=== PATIENT | female | born 1975 | race Caucasian/White ===

== ENCOUNTER 2017-02-04 13:12 | Inpatient (IN) | payer OTHER ==
[~2017-02-04] VITALS: Ht 154.9 cm; Wt 48.0 kg
[~2017-02-04 13:12] MED LIST: ALBU1AER9 INH; AMPH30TA2 PO; ATV/1 PO; BUPRTAB51 PO; CHOL100027 PO; CYAN3INJ INJ; EVEN1000 PO; FLUO0.0543 TOP; LEVO100T PO; LINA1CAP2 PO; MAGNSUS5 PO; MISCCAP80 PO; MULTTAB58 PO; OMEG10007 PO; ONDA4TAB10 SL; SPIR100T PO; TRAZ50TA35 PO; TRET0.0522 TOP; VITA400C15 PO
[2017-02-04] MEDS ORDERED: SODIUM CHLORIDE 0.9% 1000ML 1,000 ML IV STA (13:29)
[2017-02-04] MEDS ORDERED: HYDROmorphone INJ 1 MG/ML SYR IV STA (13:29)
[2017-02-04] MEDS ORDERED: ONDANSETRON INJ 2 MG/ML 2 ML VIAL IV STA (13:29)
[2017-02-04 14:15] LABS: BASO % 0.1 %; BASO ABS # 0.01 K/uL (0-0.2); COMPLETE YES; EOS % 0.1 %; HEMATOCRIT 46.8 % (37-47); IG% 0.3 %; LYMPH % 4.1 %; LYMPH ABS # 0.45 K/uL (1.2-3.4); MEAN CELL VOLUME 93.8 fL (80-100); MEAN CORPUSCULAR HEMOGLOBIN 31.1 pg (25-34); MEAN CORPUSCULAR HGB CONC 33.1 g/dl (32-36); MEAN PLATELET VOLUME 9.9 fL (7.4-10.4); MONO % 4.8 %; NEUT % 90.6 %; PLATELET COUNT 336 K/uL (130-400); RED BLOOD COUNT 4.99 M/uL (4.2-5.4); WHITE BLOOD COUNT 11.03 K/uL (4.8-10.8)
[2017-02-04] MEDS ORDERED: CYNI1000 INJ (14:27)
[2017-02-04] MEDS ORDERED: MOML PO (14:27)
[2017-02-04] MEDS ORDERED: VTME400 PO (14:27)
[2017-02-04] MEDS ORDERED: VNTHFA/IN INH (14:27)
[2017-02-04] MEDS ORDERED: LDXO60 TOP (14:27)
[2017-02-04 14:42] LABS: URINE APPEARANCE CLOUDY (CLEAR); URINE BILIRUBIN NEG (NEG); URINE COLOR DK YELLOW; URINE EPITHELIAL CELL AUTO >30 /lpf (0-5); URINE NITRITE NEG (NEG); URINE SPECIFIC GRAVITY 1.028 (1.000-1.030); UROBILINOGEN NEG (NEG)
[2017-02-04 14:46] LABS: MANUAL MICROSCOPIC REQUIRED? NO; REVIEW REQ? NO
--- NOTE | 2017-02-04 14:58 | DIAGNOSTIC IMAGING REPORT ---
PA CHEST RADIOGRAPH AND UPRIGHT AND SUPINE AP RADIOGRAPHS OF THE ABDOMEN CLINICAL HISTORY: Vomiting. Evaluate for obstruction. COMPARISON STUDY: Chest radiograph and abdominal series April 30, 2016. FINDINGS: Lung volumes are normal. Lungs are clear. There is no pneumothorax or pleural effusion. Cardiac size is normal. Mediastinal contours are normal. There is no free air. Several loops of mildly dilated gas-filled small bowel are noted. The findings suggest a small bowel obstruction. IMPRESSION: 1. Mild small bowel dilatation which favors a small bowel obstruction. 2. No free air. 3. No acute cardiopulmonary findings. Electronically signed by: Jonnathan Goldman M.D. 02/04/2017 2:57 PM Dictated Date/Time: 02/04/2017 2:55 PM
[2017-02-04] MEDS ORDERED: HYDROmorphone INJ 0.5 MG/0.5 ML SYR IV STA (15:10)
[2017-02-04 15:17] LABS: CALCIUM 10.4 mg/dl (8.5-10.1); CREATININE 0.97 mg/dl (0.60-1.20); POTASSIUM 3.8 mmol/L (3.5-5.1)
[2017-02-04] MEDS ORDERED: COUGH DROP (SUGAR FREE) LOZ 24 LOZ/1 BOX ONE (15:47)
[2017-02-04 16:01] VITALS: O2SAT 95; Ht 154.9 cm; Wt 48.0 kg
--- NOTE | 2017-02-04 16:13 | DIAGNOSTIC IMAGING REPORT ---
CHEST ONE VIEW PORTABLE CLINICAL HISTORY: check for NG tube placement COMPARISON STUDY: Chest radiograph February 04, 2017 2:25 PM. FINDINGS: The tip of the nasogastric tube injects over the distal stomach. There is no pneumothorax or pleural effusion. Lungs are clear. A few mildly dilated loops of small bowel shown within visualized portions of the abdomen. IMPRESSION: 1. Tip of nasogastric tube projects over the distal stomach. 2. No acute cardiopulmonary findings. Electronically signed by: Jonnathan Goldman M.D. 02/04/2017 4:12 PM Dictated Date/Time: 02/04/2017 4:11 PM
[2017-02-04] MEDS ORDERED: MoRPHine SULFATE 2 MG/ML CARP IV PRN (16:30)
[2017-02-04] MEDS ORDERED: ENOXAPARIN 40 MG/0.4 ML SYR SQ SCH (16:30)
[2017-02-04] MEDS ORDERED: ONDANSETRON INJ 2 MG/ML 2 ML VIAL IV PRN (16:30)
[2017-02-04 16:34] VITALS: O2SAT 97
[2017-02-04] MEDS ORDERED: LEVO112T2 PO (16:34)
--- NOTE | 2017-02-04 16:44 | EMERGENCY ROOM VISIT NOTE ---
History Report prepared by Eilana: Beatriz Mitchell Under the Supervision of: Dr. Harshal Viramontes M.D. First contact with patient: 13:23 Chief Complaint: ABDOMINAL PAIN Stated Complaint: ABDOMINAL PAIN Nursing Triage Summary: pt here with abd pain, n/v since last pain. hx of abd surgeries, colon removal. pt of dr griggs. History of Present Illness The patient is a 41 year old female who presents to the Emergency Room with complaints of constant abdominal pain beginning last night. The patient states that she has a history of a small bowel obstruction and this feels like her previous obstruction. She reports that she is having pain in the upper central abdomen around her bellybutton. She complains of nausea, vomiting, and some black stool. The patient states that last night she had a small bowel movement that was black and she notes that she does not remember seeing any blood in the stool. She also complains that she is not passing gas and her stomach feels distended. She denies any diarrhea, fever, urinary symptoms, liver issues, and chance of . Source of History: patient Onset: last night Position: abdomen (central) Symptom Intensity: severe Quality: other (like her previous SBO) Timing: constant Associated Symptoms: + nausea, + vomiting, No fevers, No diarrhea, No urinary symptoms Note: Pt complains of black stool, not passing gas, and stomach distension. Review of Systems See HPI for pertinent positives & negatives. A total of 10 systems reviewed and were otherwise negative. Past Medical & Surgical Medical Problems: (1) ADHD (attention deficit hyperactivity disorder) (2) Anxiety (3) Chronic constipation (4) GERD (gastroesophageal reflux disease) (5) Hypothyroidism (6) IBS (irritable bowel syndrome) (7) Lower extremity edema (8) SBO (small bowel obstruction) Surgical Problems: (1) H/O colectomy (2) lysis of adhesions Family History FH: multiple sclerosis MOTHER Social History Smoking Status: Never Smoker Alcohol Use: none Current/Historical Medications Scheduled Amphetamine-Dextroamphetamine 30MG (Adderall 30MG), 30 MG PO DAILY Bupropion (Wellbutrin-Xl), 150 MG PO BID Cholecalciferol (Vitamin D 1000 Unit), 1,000 INTER.UNIT PO DAILY Cyanocobalamin (Cyanocobalamin), 1,000 MCG INJ UD Fish Oil ([place]-3), 2 CAP PO DAILY Levothyroxine Sodium (Synthroid), 1 TAB PO DAILY Linaclotide (Linzess), 290 MCG PO DAILY Magnesium Hydroxide (Milk Of Magnesia), 30 ML PO DAILY Multiple Vitamin (Multivitamin), 1 TAB PO DAILY Probiotic Product (Probiotic), 1 CAP PO DAILY Spironolactone (Aldactone), 100 MG PO BID Tocopheryl Acet,Dl-Alpha (Vitamin E/Dl-Alpha), 400-800 INTER.UNIT PO DAILY Tretinoin (Tretinoin), 1 APPLN TOP HS Scheduled PRN Albuterol Hfa (Ventolin Hfa), 2 PUFFS INH Q4-6H PRN for SOB/Wheezing Fluocinonide (Lidex 0.05% Oint), 1 APPLN TOP BID PRN for PRN Lorazepam (Ativan), 1 MG PO HS PRN for Anxiety Ondasetron Odt (Zofran Odt), 4-8 MG SL Q6H PRN for Nausea Trazodone Hcl (Trazodone), 50-100 MG PO HS PRN Allergies Coded Allergies: Cephalosporins (Verified Allergy, Intermediate, CEFTIN-HIVES, 02/04/17) Lamotrigine (Verified Allergy, Mild, RASH, 02/04/17) Sulfa Drugs (Verified Allergy, Mild, RASH, 02/04/17) Flu Virus Vaccine (Verified Allergy, Unknown, UNKNOWN, 02/04/17) Metoclopramide (Verified Allergy, Unknown, ,, 02/04/17) Physical Exam Vital Signs Date Time Temp Pulse Resp B/P (MAP) Pulse Ox O2 Delivery O2 Flow Rate FiO2 02/04/17 16:34 88 16 107/75 97 02/04/17 16:01 95 Room Air 02/04/17 15:48 79 14 120/65 95 Room Air 02/04/17 15:28 74 02/04/17 15:00 72 16 106/64 98 02/04/17 13:25 116/71 02/04/17 13:17 36.5 91 16 96 Room Air Physical Exam Constitutional: Vital signs reviewed. Eyes: Pupils are equal round reactive to light. Conjunctiva are noninjected. Sclera are nonicteric. ENT: Pharynx is clear without erythema or exudate. Mucous membranes are moist. Neck supple without meningeal signs. Respiratory: Clear to auscultation bilaterally. Breath sounds are equal bilaterally. Cardiovascular: Regular rate and rhythm. No rubs or gallops. GI: Diminished bowel sounds diffusely, tenderness in the supraumbilical region, no guarding. Musculoskeletal: No peripheral edema. No lower extremity tenderness. Integumentary: No cyanosis. Neurological: The patient is awake and alert. No focal deficits. Psychiatric: Normal affect, the patient is anxious. Medical Decision & Procedures ER Provider Diagnostic Interpretation: X-ray results as stated below per interpretation by me and the radiologist: PA CHEST RADIOGRAPH AND UPRIGHT AND SUPINE AP RADIOGRAPHS OF THE ABDOMEN FINDINGS: Lung volumes are normal. Lungs are clear. There is no pneumothorax or pleural effusion. Cardiac size is normal. Mediastinal contours are normal. There is no free air. Several loops of mildly dilated gas-filled small bowel are noted. The findings suggest a small bowel obstruction. IMPRESSION: 1. Mild small bowel dilatation which favors a small bowel obstruction. 2. No free air. 3. No acute cardiopulmonary findings. Electronically signed by: Jonnathan Goldman M.D. 02/04/2017 2:57 PM Dictated Date/Time: 02/04/2017 2:55 PM Laboratory Results 02/04/17 14:03 Red Blood Count 4.99, Mean Corpuscular Volume 93.8, Mean Corpuscular Hemoglobin 31.1, Mean Corpuscular Hemoglobin Concent 33.1, Mean Platelet Volume 9.9, Neutrophils (%) (Auto) 90.6, Lymphocytes (%) (Auto) 4.1, Monocytes (%) (Auto) 4.8, Eosinophils (%) (Auto) 0.1, Basophils (%) (Auto) 0.1, Neutrophils # (Auto) 10.00, Lymphocytes # (Auto) 0.45, Monocytes # (Auto) 0.53, Eosinophils # (Auto) 0.01, Basophils # (Auto) 0.01 02/04/17 14:50 Test 02/04/17 14:03 02/04/17 14:05 02/04/17 14:50 White Blood Count 11.03 K/uL (4.8-10.8) Red Blood Count 4.99 M/uL (4.2-5.4) Hemoglobin 15.5 g/dL (12.0-16.0) Hematocrit 46.8 % (37-47) Mean Corpuscular Volume 93.8 fL (80-100) Mean Corpuscular Hemoglobin 31.1 pg (25-34) Mean Corpuscular Hemoglobin Concent 33.1 g/dl (32-36) Platelet Count 336 K/uL (130-400) Mean Platelet Volume 9.9 fL (7.4-10.4) Neutrophils (%) (Auto) 90.6 % Lymphocytes (%) (Auto) 4.1 % Monocytes (%) (Auto) 4.8 % Eosinophils (%) (Auto) 0.1 % Basophils (%) (Auto) 0.1 % Neutrophils # (Auto) 10.00 K/uL (1.4-6.5) Lymphocytes # (Auto) 0.45 K/uL (1.2-3.4) Monocytes # (Auto) 0.53 K/uL (0.11-0.59) Eosinophils # (Auto) 0.01 K/uL (0-0.5) Basophils # (Auto) 0.01 K/uL (0-0.2) RDW Standard Deviation 44.8 fL (36.4-46.3) RDW Coefficient of Variation 13.1 % (11.5-14.5) Immature Granulocyte % (Auto) 0.3 % Immature Granulocyte # (Auto) 0.03 K/uL (0.00-0.02) Urine Color DK YELLOW Urine Appearance CLOUDY (CLEAR) Urine pH 7.0 (4.5-7.5) Urine Specific [place] 1.028 (1.000-1.030) Urine Protein NEG (NEG) Urine Glucose (UA) NEG (NEG) Urine Ketones 1+ (NEG) Urine Occult Blood NEG (NEG) Urine Nitrite NEG (NEG) Urine Bilirubin NEG (NEG) Urine Urobilinogen NEG (NEG) Urine Leukocyte Esterase TRACE (NEG) Urine WBC (Auto) 1-5 /hpf (0-5) Urine RBC (Auto) 0-4 /hpf (0-4) Urine Hyaline Casts (Auto) 1-5 /lpf (0-5) Urine Epithelial Cells (Auto) >30 /lpf (0-5) Urine Bacteria (Auto) NEG (NEG) Urine Test NEG (NEG) Anion Gap 7.0 mmol/L (3-11) Est Creatinine Clear Calc Drug Dose 57.0 ml/min Estimated GFR () 83.5 Estimated GFR (Non- 72.0 BUN/Creatinine Ratio 16.0 (10-20) Calcium Level 10.4 mg/dl (8.5-10.1) Total Bilirubin 0.6 mg/dl (0.2-1) Direct Bilirubin 0.1 mg/dl (0-0.2) Aspartate Amino Transf (AST/SGOT) 24 U/L (15-37) Alanine Aminotransferase (ALT/SGPT) 35 U/L (12-78) Alkaline Phosphatase 51 U/L (45-117) Total Protein 7.1 gm/dl (6.4-8.2) Albumin 4.2 gm/dl (3.4-5.0) Lipase 92 U/L (73-393) Laboratory results as reviewed by me. Medications Administered Medications (Trade) Dose Ordered Sig/Lenny Route Start Time Stop Time Status Last Admin Dose Admin Ondansetron HCl (Zofran Inj) 4 mg NOW STAT IV 02/04/17 13:29 02/04/17 13:38 DC 02/04/17 14:03 4 MG Hydromorphone HCl (Dilaudid Inj) 0.5 mg NOW STAT IV 02/04/17 13:29 02/04/17 13:38 DC 02/04/17 14:05 0.5 MG Sodium Chloride 1,000 ml @ 999 mls/hr Q1H1M STAT IV 02/04/17 13:29 02/04/17 14:29 DC 02/04/17 14:01 999 MLS/HR Hydromorphone HCl (Dilaudid Inj) 0.5 mg NOW STAT IV 02/04/17 15:10 02/04/17 15:11 DC 02/04/17 15:23 0.5 MG ED Course 1323: The patient was evaluated in room A10. A complete history and physical exam was performed. 1329: Sodium Chloride 1000 ml @ 999 mls/hr IV, Dilaudid Inj 0.5mg IV, Zofran Inj 4mg IV. 1510: I reevaluated and updated the patient. She would like some more pain medicine. 1510: Dilaudid Inj 0.5mg IV. 1541: I spoke with Dr. Mejía of [facility]. We discussed the patient and her results. The patient will be further evaluated by Dr. Mejía. 1547: Menthol 24loz. 1552: I spoke with Dr. Emanuel of surgery. We discussed the patient and her results. He is agreeable to seeing the patient. Medical Decision This is a 41-year-old female who presents with abdominal pain and vomiting. Differential diagnosis includes small bowel obstruction, partial bowel obstruction, ileus, gastritis, fecal impaction. I did perform a limited focused review of portions of the patient's old chart on the electronic medical record. The patient was admitted to the hospital in April of last year for a partial small bowel obstruction. Medication Reconciliation: I attest that I have personally reviewed the patient' s current medication list. Blood Pressure Screening: Patient was found to have normal blood pressure on screening and does not require follow-up. I did evaluate the patient as noted above. IV access was established. I did treat patient with Dilaudid and Zofran IV. She was also given normal saline IV. I did order and review the patient's urinalysis as described above. I did order and review the patient's blood work as noted in the electronic medical record. Her white blood cell count is slightly elevated. I did order an x-ray of the chest and abdomen. I did review the images myself as well as the radiology report as described above. She does have evidence of a small bowel obstruction on x-ray. I did discuss the test will to the patient. I did order an NG tube. I also treated her with additional Dilaudid IV. I did discuss case with the hospitalist and surgeon on-call. Consults Time Called: 1510 Consulting Physician: Dr. Alfonzo Barlow Returned Call: [address] Mejía of [facility]. We discussed the patient and her results. The patient will be further evaluated by Dr. Mejía. Additional Consults: Time Called: 1548 Consulted Physician: Dr. Emanuel Returned Call: 1554 Additional Comments: I spoke with Dr. Emanuel of surgery. We discussed the patient and her results. He is agreeable to seeing the patient. Impression Primary Impression: Small bowel obstruction Scribe Attestation The scribe's documentation has been prepared under my direct and personally reviewed by me in its entirety. I confirm that the note above accurately reflects all work, treatment, procedures, and medical decision making performed by me. Departure Information Dispostion Being Evaluated By Hospitalist Referrals No Doctor, Assigned (PCP) Patient Instructions [facility]
[2017-02-04] MEDS ORDERED: FLUOCINONIDE 0.05% OINT 15 GM TUBE EXT PRN (16:45)
[2017-02-04] MEDS ORDERED: LORAZEPAM 2 MG/ML 1 ML VIAL IV PRN (16:45)
--- NOTE | 2017-02-04 17:03 | History and Physical ---
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 She has had these in the past, the last which was in Apr 2016. She reports eating dinner last night and then developing abdominal discomfort, nausea and excessive vomiting starting around 11pm. She knew what she was experiencing and wanted to see if it would resolve prior to coming into the ER, but her symptoms persisted. She did also see one blackish stool last night and didn't have a BM after that. She has been feeling fine otherwise, prior to this denying fevers, chills, nausea, vomiting, intolerance to PO or any other symptoms. She does have some chronic abdominal discomfort right over an area of presumed scar tissue from one of her prior surgeries which bothers her daily, including when she exercises or moves around. She has reported these concerns to her surgeon as an outpatient, who has verbalized hesitation to her because of not wanting to create more scar tissue. In the ER, she is HD stable. She had an NGT placed by the ER physician, with frothy greenish fluid in the suction cannister since placement. She is already reportedly feeling better and has bowel sounds on exam. Past Medical/Surgical History Medical Problems: (1) ADHD (attention deficit hyperactivity disorder) Status: Chronic (2) Anxiety Status: Chronic (3) Chronic constipation Status: Chronic (4) GERD (gastroesophageal reflux disease) Status: Chronic (5) Hypothyroidism Status: Chronic (6) IBS (irritable bowel syndrome) Status: Chronic (7) Lower extremity edema Status: Chronic (8) SBO (small bowel obstruction) Permanent Comment: 2008, 2011, 2012 Status: Chronic (9) Small bowel obstruction Status: Chronic Surgical Problems: (1) H/O colectomy Permanent Comment: 2007 - due to motility issues subtotal colectomy with ileorectal anastomosis Status: Chronic (2) H/O: Status: Chronic (3) Hx of tonsillectomy Status: Chronic (4) lysis of adhesions Status: Chronic Family History FH: multiple sclerosis MOTHER Social History Smoking Status: Never Smoker Smokeless Tobacco Use: No Alcohol Use: none Drug Use: none Marital Status: Housing status: lives with significant other Immunizations History of Influenza Vaccine: No History of Tetanus Vaccine?: Yes Tetanus Immunization Date: Mar 04, 2016 History of Pneumococcal: No History of Hepatitis B Vaccine: No Multi-Drug Resistant Organisms History of MDRO: No Allergies Coded Allergies: Cephalosporins (Verified Allergy, Intermediate, CEFTIN-HIVES, 02/04/17) Lamotrigine (Verified Allergy, Mild, RASH, 02/04/17) Sulfa Drugs (Verified Allergy, Mild, RASH, 02/04/17) Flu Virus Vaccine (Verified Allergy, Unknown, UNKNOWN, 02/04/17) Metoclopramide (Verified Allergy, Unknown, ,, 02/04/17) Home Medications Scheduled Amphetamine-Dextroamphetamine 30MG (Adderall 30MG), 30 MG PO DAILY Bupropion (Wellbutrin-Xl), 150 MG PO BID Cholecalciferol (Vitamin D 1000 Unit), 1,000 INTER.UNIT PO DAILY Cyanocobalamin (Cyanocobalamin), 1,000 MCG INJ UD Fish Oil ([place]-3), 2 CAP PO DAILY Levothyroxine Sodium (Synthroid), 1 TAB PO DAILY Linaclotide (Linzess), 290 MCG PO DAILY Magnesium Hydroxide (Milk Of Magnesia), 30 ML PO DAILY Multiple Vitamin (Multivitamin), 1 TAB PO DAILY Probiotic Product (Probiotic), 1 CAP PO DAILY Spironolactone (Aldactone), 100 MG PO BID Tocopheryl Acet,Dl-Alpha (Vitamin E/Dl-Alpha), 400-800 INTER.UNIT PO DAILY Tretinoin (Tretinoin), 1 APPLN TOP HS Scheduled PRN Albuterol Hfa (Ventolin Hfa), 2 PUFFS INH Q4-6H PRN for SOB/Wheezing Fluocinonide (Lidex 0.05% Oint), 1 APPLN TOP BID PRN for PRN Lorazepam (Ativan), 1 MG PO HS PRN for Anxiety Ondasetron Odt (Zofran Odt), 4-8 MG SL Q6H PRN for Nausea Trazodone Hcl (Trazodone), 50-100 MG PO HS PRN Review of Systems Ten systems were reviewed and negative except as indicated in HPI. Physical Exam Vital Signs Date Time Temp Pulse Resp B/P (MAP) Pulse Ox O2 Delivery O2 Flow Rate FiO2 02/04/17 16:34 88 16 107/75 97 02/04/17 16:01 95 Room Air 02/04/17 15:48 79 14 120/65 95 Room Air 02/04/17 15:28 74 02/04/17 15:00 72 16 106/64 98 02/04/17 13:25 116/71 02/04/17 13:17 36.5 91 16 96 Room Air General Appearance: WD/WN, no apparent distress Head: normocephalic, atraumatic Eyes: normal inspection, PERRL, sclerae normal ENT: normal ENT inspection, hearing grossly normal, pharynx normal Neck: supple, no adenopathy, no JVD, trachea midline Respiratory/Chest: lungs clear, normal breath sounds, no respiratory distress, no accessory muscle use Cardiovascular: regular rate, rhythm, no edema, no gallop, no JVD, no murmur, normal peripheral pulses Abdomen/GI: normal bowel sounds, soft, + tenderness (only in epigastric area where she has chronic pain ), + mass (sharp wire-like entity palpaple in area superior to her abdominal incision), + pertinent finding (no guarding or rebound , able to move around the bed with ease. ) Back: normal inspection Extremities/Musculoskelatal: normal inspection, no calf tenderness, no pedal edema, normal range of motion Neurologic/Psych: construction helper II-XII nml as tested, no motor/sensory deficits, alert, normal mood/affect, oriented x 3 Skin: normal color, warm/dry, no rash, + pertinent finding (well-healed abdominal scar) Lymphatic: no adenopathy Diagnostics Laboratory Results Results Past 24 Hours Test 02/04/17 14:03 02/04/17 14:05 02/04/17 14:50 Range/Units White Blood Count 11.03 4.8-10.8 K/uL Red Blood Count 4.99 4.2-5.4 M/uL Hemoglobin 15.5 12.0-16.0 g/dL Hematocrit 46.8 37-47 % Mean Corpuscular Volume 93.8 80-100 fL Mean Corpuscular Hemoglobin 31.1 25-34 pg Mean Corpuscular Hemoglobin Concent 33.1 32-36 g/dl Platelet Count 336 130-400 K/uL Mean Platelet Volume 9.9 7.4-10.4 fL Neutrophils (%) (Auto) 90.6 % Lymphocytes (%) (Auto) 4.1 % Monocytes (%) (Auto) 4.8 % Eosinophils (%) (Auto) 0.1 % Basophils (%) (Auto) 0.1 % Neutrophils # (Auto) 10.00 1.4-6.5 K/uL Lymphocytes # (Auto) 0.45 1.2-3.4 K/uL Monocytes # (Auto) 0.53 0.11-0.59 K/uL Eosinophils # (Auto) 0.01 0-0.5 K/uL Basophils # (Auto) 0.01 0-0.2 K/uL RDW Standard Deviation 44.8 36.4-46.3 fL RDW Coefficient of Variation 13.1 11.5-14.5 % Immature Granulocyte % (Auto) 0.3 % Immature Granulocyte # (Auto) 0.03 0.00-0.02 K/uL Urine Color DK YELLOW Urine Appearance CLOUDY CLEAR Urine pH 7.0 4.5-7.5 Urine Specific [place] 1.028 1.000-1.030 Urine Protein NEG NEG Urine Glucose (UA) NEG NEG Urine Ketones 1+ NEG Urine Occult Blood NEG NEG Urine Nitrite NEG NEG Urine Bilirubin NEG NEG Urine Urobilinogen NEG NEG Urine Leukocyte Esterase TRACE NEG Urine WBC (Auto) 1-5 0-5 /hpf Urine RBC (Auto) 0-4 0-4 /hpf Urine Hyaline Casts (Auto) 1-5 0-5 /lpf Urine Epithelial Cells (Auto) >30 0-5 /lpf Urine Bacteria (Auto) NEG NEG Urine Test NEG NEG Sodium Level 141 136-145 mmol/L Potassium Level 3.8 3.5-5.1 mmol/L Chloride Level 101 98-107 mmol/L Carbon Dioxide Level 33 21-32 mmol/L Anion Gap 7.0 3-11 mmol/L Blood Urea Nitrogen 16 7-18 mg/dl Creatinine 0.97 0.60-1.20 mg/dl Est Creatinine Clear Calc Drug Dose 57.0 ml/min Estimated GFR () 83.5 Estimated GFR (Non- 72.0 BUN/Creatinine Ratio 16.0 10-20 Random Glucose 97 70-99 mg/dl Calcium Level 10.4 8.5-10.1 mg/dl Total Bilirubin 0.6 0.2-1 mg/dl Direct Bilirubin 0.1 0-0.2 mg/dl Aspartate Amino Transf (AST/SGOT) 24 15-37 U/L Alanine Aminotransferase (ALT/SGPT) 35 12-78 U/L Alkaline Phosphatase 51 45-117 U/L Total Protein 7.1 6.4-8.2 gm/dl Albumin 4.2 3.4-5.0 gm/dl Lipase 92 73-393 U/L Diagnostic Radiology CHEST ONE VIEW PORTABLE CLINICAL HISTORY: check for NG tube placement COMPARISON STUDY: Chest radiograph February 04, 2017 2:25 PM. FINDINGS: The tip of the nasogastric tube injects over the distal stomach. There is no pneumothorax or pleural effusion. Lungs are clear. A few mildly dilated loops of small bowel shown within visualized portions of the abdomen. IMPRESSION: 1. Tip of nasogastric tube projects over the distal stomach. 2. No acute cardiopulmonary findings. PA CHEST RADIOGRAPH AND UPRIGHT AND SUPINE AP RADIOGRAPHS OF THE ABDOMEN CLINICAL HISTORY: Vomiting. Evaluate for obstruction. COMPARISON STUDY: Chest radiograph and abdominal series April 30, 2016. FINDINGS: Lung volumes are normal. Lungs are clear. There is no pneumothorax or pleural effusion. Cardiac size is normal. Mediastinal contours are normal. There is no free air. Several loops of mildly dilated gas-filled small bowel are noted. The findings suggest a small bowel obstruction. IMPRESSION: 1. Mild small bowel dilatation which favors a small bowel obstruction. 2. No free air. 3. No acute cardiopulmonary findings. EKG SR w sinus arrhythmia 83 Impression Assessment and Plan 41 yo F with prior colectomy who has recurrent SBO presenting with SBO today. 1. SBO-EGD in place. Gen Surgery consulted. Appreciate surgical recommendations. [place] NGT to low, intermittent suction. Holding all PO meds. NPO x ice chips and small sips for comfort. Consider giving only Adderall and Buproprion but would like to avoid this if able. Cont IVF, pain/nausea control PRN 2. Hypothyroidism-cont Synthroid IV 3. Fluid retention-chronic issue for which she takes aldactone. Holding this for now. 4. Anxiety/Depression-takes Ativan PRN but also takes amphetamine for ADD? Holding Adderall at this time. Ativan PRN. Buproprion also held as above. DVT proph-Lovenox FULL CODE Dispo-to med/surg [facility]/Surg Advanced Directives Existing Living Will: No Existing Power of Coroner: No Resuscitation Status FULL RESUSCITATION VTE Prophylaxis VTE Risk Assessment Done? Y/N: Yes Risk Level: Moderate Given or contraindicated: Enoxaparin (Lovenox)SQ
[2017-02-04 17:04] VITALS: BP 100/61; PULSE 75; TEMP 36.4; O2SAT 93
--- NOTE | 2017-02-04 17:36 | Surgery Consultation ---
Consultation Date of Consultation: Feb 04, 2017. Attending Physician: Jennie Mejía DO Reason for Consultation: Abdominal pain nausea vomiting and possible small bowel obstruction History of Present Illness This is a 41-year-old female who presented to the emergency room with a complaint of nausea and vomiting associated with abdominal pain. When she went to bed last night she had no symptoms. She will this morning with vomiting and has had 7-8 episodes of vomiting since. This morning she had what she described as a "unusual" bowel movement in that it was black in color and thick. She had not had that before. She then developed the vomiting. Abdomen was distended. She has not had fever or chills. She has had no dysuria or hematuria. 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 She still requires MiraLAX and milk of magnesia on a daily basis in order to have bowel movements. Since admission she has had a large bowel movement that also was black. She passed a large amount of flatus. Her distention, nausea and abdominal pain have resolved. Past Medical/Surgical History Medical Problems: (1) Small bowel obstruction Status: Chronic PSH: Total abdominal colectomy Tubal ligation She thinks her gallbladder was removed with her total abdominal colectomy Family History FH: multiple sclerosis MOTHER Social History Smoking Status: Never Smoker Smokeless Tobacco Use: No Alcohol Use: occasionally Drug Use: none Marital Status: Allergies Coded Allergies: Cephalosporins (Verified Allergy, Intermediate, CEFTIN-HIVES, 02/04/17) Lamotrigine (Verified Allergy, Mild, RASH, 02/04/17) Sulfa Drugs (Verified Allergy, Mild, RASH, 02/04/17) Flu Virus Vaccine (Verified Allergy, Unknown, UNKNOWN, 02/04/17) Metoclopramide (Verified Allergy, Unknown, ,, 02/04/17) Home Medications Scheduled Amphetamine-Dextroamphetamine 30MG (Adderall 30MG), 30 MG PO DAILY Bupropion (Wellbutrin-Xl), 150 MG PO BID Cholecalciferol (Vitamin D 1000 Unit), 1,000 INTER.UNIT PO DAILY Cyanocobalamin (Cyanocobalamin), 1,000 MCG INJ UD Fish Oil ([place]-3), 2 CAP PO DAILY Levothyroxine Sodium (Synthroid), 1 TAB PO DAILY Linaclotide (Linzess), 290 MCG PO DAILY Magnesium Hydroxide (Milk Of Magnesia), 30 ML PO DAILY Multiple Vitamin (Multivitamin), 1 TAB PO DAILY Probiotic Product (Probiotic), 1 CAP PO DAILY Spironolactone (Aldactone), 100 MG PO BID Tocopheryl Acet,Dl-Alpha (Vitamin E/Dl-Alpha), 400-800 INTER.UNIT PO DAILY Tretinoin (Tretinoin), 1 APPLN TOP HS Scheduled PRN Albuterol Hfa (Ventolin Hfa), 2 PUFFS INH Q4-6H PRN for SOB/Wheezing Fluocinonide (Lidex 0.05% Oint), 1 APPLN TOP BID PRN for PRN Lorazepam (Ativan), 1 MG PO HS PRN for Anxiety Ondasetron Odt (Zofran Odt), 4-8 MG SL Q6H PRN for Nausea Trazodone Hcl (Trazodone), 50-100 MG PO HS PRN Current Inpatient Medications Current Inpatient Medications Medications (Trade) Dose Ordered Sig/Lenny Route Start Time Stop Time Status Last Admin Dose Admin Enoxaparin Sodium (Lovenox Inj) 40 mg Q24H SQ 02/04/17 16:30 03/06/17 16:29 UNV Ondansetron HCl (Zofran Inj) 4 mg Q6H PRN IV 02/04/17 16:30 03/06/17 16:29 Acetaminophen 650 mg/Empty Bag 65 ml @ 260 mls/hr Q6H PRN IV 02/04/17 16:30 03/06/17 16:29 Morphine Sulfate (MoRPHine SULFATE INJ) 2 mg Q2H PRN IV 02/04/17 16:30 02/18/17 16:29 Bupropion HCl (Wellbutrin-Xl Tab) 150 mg BID PO 02/04/17 21:00 03/06/17 20:59 Future Hold Fluocinonide (Lidex Oint) 1 appln BID PRN EXT 02/04/17 16:45 03/06/17 16:44 Non-Formulary Medication (Amphetamine-Dextroamphetamine 30MG (Adderall 30MG)) 30 mg DAILY PO 02/05/17 09:00 03/07/17 08:59 UNV Levothyroxine Sodium 56 mcg/ Syringe 2.8 ml @ 2 mls/min DAILY@09 IV 02/05/17 09:00 8/1/17 08:59 Lorazepam (Ativan Inj) 0.5 mg Q12H PRN IV 02/04/17 16:45 03/06/17 16:44 UNV Potassium Chloride/Dextrose/ Sod Cl 1,000 ml @ 125 mls/hr Q8H IV 02/04/17 17:45 03/06/17 16:59 Review of Systems Constitutional: No fever Respiratory: No cough, No sputum Cardiovascular: No chest pain Abdomen: + problem reported (as per HPI) Genitourinary - Female: + problem reported (as per HPI) Hematologic / Lymphatic: No abnormal bleeding/bruising Integumentary: No rash Physical Exam Date Time Temp Pulse Resp B/P (MAP) Pulse Ox O2 Delivery O2 Flow Rate FiO2 02/04/17 17:04 36.4 75 16 100/61 (74) 93 Room Air 02/04/17 16:34 88 16 107/75 97 02/04/17 16:01 95 Room Air 02/04/17 15:48 79 14 120/65 95 Room Air 02/04/17 15:28 74 02/04/17 15:00 72 16 106/64 98 02/04/17 13:25 116/71 02/04/17 13:17 36.5 91 16 96 Room Air General Appearance: WD/WN, no apparent distress Head: normocephalic Neck: supple, no adenopathy Respiratory/Chest: chest non-tender Cardiovascular: regular rate, rhythm Abdomen/GI: normal bowel sounds, non tender, soft Back: normal inspection Extremities/Musculoskelatal: normal inspection Laboratory Results Last 24 Hours Test 02/04/17 14:03 02/04/17 14:05 02/04/17 14:50 White Blood Count 11.03 K/uL Red Blood Count 4.99 M/uL Hemoglobin 15.5 g/dL Hematocrit 46.8 % Mean Corpuscular Volume 93.8 fL Mean Corpuscular Hemoglobin 31.1 pg Mean Corpuscular Hemoglobin Concent 33.1 g/dl Platelet Count 336 K/uL Mean Platelet Volume 9.9 fL Neutrophils (%) (Auto) 90.6 % Lymphocytes (%) (Auto) 4.1 % Monocytes (%) (Auto) 4.8 % Eosinophils (%) (Auto) 0.1 % Basophils (%) (Auto) 0.1 % Neutrophils # (Auto) 10.00 K/uL Lymphocytes # (Auto) 0.45 K/uL Monocytes # (Auto) 0.53 K/uL Eosinophils # (Auto) 0.01 K/uL Basophils # (Auto) 0.01 K/uL RDW Standard Deviation 44.8 fL RDW Coefficient of Variation 13.1 % Immature Granulocyte % (Auto) 0.3 % Immature Granulocyte # (Auto) 0.03 K/uL Urine Color DK YELLOW Urine Appearance CLOUDY Urine pH 7.0 Urine Specific [place] 1.028 Urine Protein NEG Urine Glucose (UA) NEG Urine Ketones 1+ Urine Occult Blood NEG Urine Nitrite NEG Urine Bilirubin NEG Urine Urobilinogen NEG Urine Leukocyte Esterase TRACE Urine WBC (Auto) 1-5 /hpf Urine RBC (Auto) 0-4 /hpf Urine Hyaline Casts (Auto) 1-5 /lpf Urine Epithelial Cells (Auto) >30 /lpf Urine Bacteria (Auto) NEG Urine Test NEG Sodium Level 141 mmol/L Potassium Level 3.8 mmol/L Chloride Level 101 mmol/L Carbon Dioxide Level 33 mmol/L Anion Gap 7.0 mmol/L Blood Urea Nitrogen 16 mg/dl Creatinine 0.97 mg/dl Est Creatinine Clear Calc Drug Dose 57.0 ml/min Estimated GFR () 83.5 Estimated GFR (Non- 72.0 BUN/Creatinine Ratio 16.0 Random Glucose 97 mg/dl Calcium Level 10.4 mg/dl Total Bilirubin 0.6 mg/dl Direct Bilirubin 0.1 mg/dl Aspartate Amino Transf (AST/SGOT) 24 U/L Alanine Aminotransferase (ALT/SGPT) 35 U/L Alkaline Phosphatase 51 U/L Total Protein 7.1 gm/dl Albumin 4.2 gm/dl Lipase 92 U/L X-ray of the chest and abdomen shows a dilated loop of small bowel that was possibly indicative of small bowel obstruction. Assessment & Plan This patient may have had a small bowel obstruction. She does have chronic GI dysfunction. She had a large bowel movement and is passing a large amount of flatus since admission. She is feeling much better. I don't feel there is any need for surgical intervention at the present time. I would continue with her NG tube until tomorrow morning. If she continues to move her bowels actively removed and a diet started. Thank you for allowing me to see this patient and participate in her care.
[2017-02-04] MEDS ORDERED: LORAZEPAM INJ 0.5 MG in SYRINGE 0.75 ML IV PRN (17:45)
[2017-02-04] MEDS: D5NSS + 20MEQ KCL 1,000 ML IV SCH (18:20)
[2017-02-04] MEDS: ACETAMINOPHEN IV 650 MG in EMPTY BAG 0 ML IV PRN (19:51)
[2017-02-04 20:00] VITALS: BP 96/60; PULSE 76; TEMP 36.6; O2SAT 97
[2017-02-04] MEDS ORDERED: BuPROPion XL 150 MG TABCR PO SCH (21:00)
[2017-02-04] MEDS: KETOROLAC TROMETHAMINE 15 MG/ML VIAL IV. PRN (22:23)
[2017-02-04] MEDS: CHLORASEPTIC 1.4% SOLN 180 ML BTL MT PRN (22:31)
[2017-02-04 22:43] VITALS: BP 95/58; PULSE 67; TEMP 36.4; O2SAT 98
[2017-02-05] MEDS: D5NSS + 20MEQ KCL 1,000 ML IV SCH ×2 (01:27→09:15)
[2017-02-05 04:28] VITALS: BP 90/53; PULSE 65; TEMP 36.4; O2SAT 95
[2017-02-05 06:00] VITALS: BP 93/62
[2017-02-05] MEDS: KETOROLAC TROMETHAMINE 15 MG/ML VIAL IV. PRN (06:14)
[2017-02-05] MEDS: CHLORASEPTIC 1.4% SOLN 180 ML BTL MT PRN (06:14)
[2017-02-05 06:38] LABS: HEMATOCRIT 41.6 % (37-47); MEAN CELL VOLUME 94.5 fL (80-100); MEAN CORPUSCULAR HEMOGLOBIN 30.5 pg (25-34); MEAN CORPUSCULAR HGB CONC 32.2 g/dl (32-36); MEAN PLATELET VOLUME 9.8 fL (7.4-10.4); PLATELET COUNT 282 K/uL (130-400); WHITE BLOOD COUNT 5.96 K/uL (4.8-10.8)
[2017-02-05 06:47] LABS: PROTHROMBIN TIME (PATIENT) 10.8 SECONDS (9.0-12.0)
[2017-02-05 07:13] LABS: BUN/CREATININE RATIO 18.7 (10-20); CREATININE 0.95 mg/dl (0.60-1.20); MAGNESIUM 2.3 mg/dl (1.8-2.4); POTASSIUM 3.6 mmol/L (3.5-5.1)
[2017-02-05 07:31] VITALS: BP 104/66; PULSE 61; TEMP 36.5; O2SAT 96
[2017-02-05 08:09] LABS: CALCIUM 8.4 mg/dl (8.5-10.1)
[2017-02-05] MEDS ORDERED: ENOXAPARIN 30 MG/0.3 ML SYR SQ SCH (09:00)
[2017-02-05] MEDS ORDERED: AMPHETAMINE ASP/SULF/DEXTRAMPH 10 MG TAB PO SCH (09:00)
[2017-02-05] MEDS ORDERED: LEVOTHYROXINE SODIUM INJ 56 MCG in SYRINGE 0 ML IV SCH (09:00)
--- NOTE | 2017-02-05 09:44 | Surgery Progress Note ---
Surgery Progress Note Date of Service Feb 05, 2017. Subjective + feeling well, + bowel movement, + flatus, No complaints, No nausea, No vomiting Objective Vital Signs: Date Time Temp Pulse Resp B/P (MAP) Pulse Ox O2 Delivery O2 Flow Rate FiO2 02/05/17 07:31 36.5 61 18 104/66 (79) 96 Room Air 02/05/17 06:00 93/62 (72) 02/05/17 04:28 36.4 65 14 90/53 (65) 95 Room Air 02/04/17 23:35 Room Air 02/04/17 22:43 36.4 67 14 95/58 (70) 98 Room Air 02/04/17 20:00 36.6 76 16 96/60 (72) 97 Room Air 02/04/17 17:04 36.4 75 16 100/61 (74) 93 Room Air 02/04/17 16:45 Room Air 02/04/17 16:34 88 16 107/75 97 02/04/17 16:01 95 Room Air 02/04/17 15:48 79 14 120/65 95 Room Air 02/04/17 15:28 74 02/04/17 15:00 72 16 106/64 98 02/04/17 13:25 116/71 02/04/17 13:17 36.5 91 16 96 Room Air Abdomen: normal bowel sounds, non tender, non distended, soft Laboratory Results: Results Past 24 Hours Test 02/04/17 14:03 02/04/17 14:05 02/04/17 14:50 02/05/17 06:03 Range/Units White Blood Count 11.03 5.96 4.8-10.8 K/uL Red Blood Count 4.99 4.40 4.2-5.4 M/uL Hemoglobin 15.5 13.4 12.0-16.0 g/dL Hematocrit 46.8 41.6 37-47 % Mean Corpuscular Volume 93.8 94.5 80-100 fL Mean Corpuscular Hemoglobin 31.1 30.5 25-34 pg Mean Corpuscular Hemoglobin Concent 33.1 32.2 32-36 g/dl Platelet Count 336 282 130-400 K/uL Mean Platelet Volume 9.9 9.8 7.4-10.4 fL Neutrophils (%) (Auto) 90.6 % Lymphocytes (%) (Auto) 4.1 % Monocytes (%) (Auto) 4.8 % Eosinophils (%) (Auto) 0.1 % Basophils (%) (Auto) 0.1 % Neutrophils # (Auto) 10.00 1.4-6.5 K/uL Lymphocytes # (Auto) 0.45 1.2-3.4 K/uL Monocytes # (Auto) 0.53 0.11-0.59 K/uL Eosinophils # (Auto) 0.01 0-0.5 K/uL Basophils # (Auto) 0.01 0-0.2 K/uL RDW Standard Deviation 44.8 46.4 36.4-46.3 fL RDW Coefficient of Variation 13.1 13.3 11.5-14.5 % Immature Granulocyte % (Auto) 0.3 % Immature Granulocyte # (Auto) 0.03 0.00-0.02 K/uL Urine Color DK YELLOW Urine Appearance CLOUDY CLEAR Urine pH 7.0 4.5-7.5 Urine Specific [place] 1.028 1.000-1.030 Urine Protein NEG NEG Urine Glucose (UA) NEG NEG Urine Ketones 1+ NEG Urine Occult Blood NEG NEG Urine Nitrite NEG NEG Urine Bilirubin NEG NEG Urine Urobilinogen NEG NEG Urine Leukocyte Esterase TRACE NEG Urine WBC (Auto) 1-5 0-5 /hpf Urine RBC (Auto) 0-4 0-4 /hpf Urine Hyaline Casts (Auto) 1-5 0-5 /lpf Urine Epithelial Cells (Auto) >30 0-5 /lpf Urine Bacteria (Auto) NEG NEG Urine Test NEG NEG Sodium Level 141 142 136-145 mmol/L Potassium Level 3.8 3.6 3.5-5.1 mmol/L Chloride Level 101 106 98-107 mmol/L Carbon Dioxide Level 33 34 21-32 mmol/L Anion Gap 7.0 2.0 3-11 mmol/L Blood Urea Nitrogen 16 18 7-18 mg/dl Creatinine 0.97 0.95 0.60-1.20 mg/dl Est Creatinine Clear Calc Drug Dose 57.0 58.2 ml/min Estimated GFR () 83.5 85.6 Estimated GFR (Non- 72.0 73.9 BUN/Creatinine Ratio 16.0 18.7 10-20 Random Glucose 97 107 70-99 mg/dl Calcium Level 10.4 8.4 8.5-10.1 mg/dl Total Bilirubin 0.6 0.2-1 mg/dl Direct Bilirubin 0.1 0-0.2 mg/dl Aspartate Amino Transf (AST/SGOT) 24 15-37 U/L Alanine Aminotransferase (ALT/SGPT) 35 12-78 U/L Alkaline Phosphatase 51 45-117 U/L Total Protein 7.1 6.4-8.2 gm/dl Albumin 4.2 3.4-5.0 gm/dl Lipase 92 73-393 U/L Prothrombin Time 10.8 9.0-12.0 SECONDS Prothromb Time International Ratio 1.0 0.9-1.1 Activated Partial Thromboplast Time 26.5 21.0-31.0 SECONDS Partial Thromboplastin Ratio 1.0 Magnesium Level 2.3 1.8-2.4 mg/dl Assessment & Plan SBO resolved Can D/C NGT Begin clear liquids
[2017-02-05] MEDS: ACETAMINOPHEN IV 650 MG in EMPTY BAG 0 ML IV PRN (10:54)
[2017-02-05 11:39] VITALS: BP 104/66; PULSE 61; TEMP 36.5; O2SAT 96
--- NOTE | 2017-02-05 12:47 | Discharge Instructions ---
Discharge Instructions Date of Service Feb 05, 2017. Admission Reason for Admission: SBO Discharge Discharge Diagnosis / Problem: SBO Discharge Goals Goal(s): Prevent Disease Progression Activity Recommendations Activity Limitations: per Instructions/Follow-up section . Instructions / Follow-Up Instructions / Follow-Up Please continue all medications as instructed above. You have a follow-up appointment from this hospitalization with Dr. Irwin Márquez at the [facility] set for , 02/09 @ 12:55pm. Follow-up with General Surgery vs Plastic Surgery non-emergently as discussed. It was a pleasure taking care of you! Call if you have any questions or problems. You can reach a [facility] hospitalist on duty at [facility] 24 hours a day by calling [phone]. Take care of yourself. Jennie Mejía DO [facility] Hospitalist Current Hospital Diet Patient's current hospital diet: Clear Liquid Diet Discharge Diet Recommended Diet: Clear Liquid Diet (advance diet as tolerated) Procedures Procedures Performed: MGT placement on 02/04 Pending Studies Studies pending at discharge: no Medical Emergencies . Who to Call and When: Medical Emergencies: If at any time you feel your situation is an emergency, please call 911 immediately. . Non-Emergent Contact Non-Emergency issues call your: Primary Care Provider . . "Provider Documentation" section prepared by Jennie Mejía. . VTE Core Measure Inpt VTE Proph given/why not?: Enoxaparin (Lovenox)SQ
--- NOTE | 2017-02-05 13:00 | Discharge Summary ---
Discharge Summary Date of Service Feb 05, 2017. Discharge Summary Admission Date: Feb 04, 2017 at 15:54 Discharge Date: Feb 05, 2017 Discharge Disposition: Home Principal Diagnosis: SBO Hypothyroidism Chronic fluid retention-not present on this admission, takes aldactone. Anxiety/Depression Procedures: NGT placement on 02/04-removal 02/05 Vaccinations: None. Consultations: General Surgery Pending Studies/Follow-Up: see instructions below Medication Reconciliation Continued Medications: Albuterol Hfa (Ventolin Hfa) 200 Puffs/30690 Mcg Aers 2 PUFFS INH Q4-6H PRN for SOB/Wheezing, #1 INHALER Amphetamine-Dextroamphetamine 30MG (Adderall 30MG) 1 Tab Tab 30 MG PO DAILY, TAB Bupropion (Wellbutrin-Xl) 300 Mg Tabcr 150 MG PO BID, TAB Cholecalciferol (Vitamin D 1000 Unit) 1,000 Unit Cap 1000 INTER.UNIT PO DAILY, CAP Cyanocobalamin (Cyanocobalamin) 1,000 Mcg/Ml Inj 1000 MCG INJ UD 2 TIMES A MONTH Fish Oil ([place]-3) 1 Ea Cap 2 CAP PO DAILY, CAP Fluocinonide (Lidex 0.05% Oint) 180 Appln/60 Gm Oint 1 APPLN TOP BID PRN for PRN APPLY AROUND NAILFOLDS TWICE A DAY NEEDED FOR FLARES Levothyroxine Sodium (Synthroid) 112 Mcg Tab 1 TAB PO DAILY, 5 Refills Linaclotide (Linzess) 290 Mcg Cap 290 MCG PO DAILY Lorazepam (Ativan) 1 Mg Tab 1 MG PO HS PRN for Anxiety, TAB Magnesium Hydroxide (Milk Of Magnesia) 30 Ml Susp 30 ML PO DAILY, ML Multiple Vitamin (Multivitamin) 1 Tab Tab 1 TAB PO DAILY, TAB Ondasetron Odt (Zofran Odt) 4 Mg Tab 4-8 MG SL Q6H PRN for Nausea, #6 TAB Probiotic Product (Probiotic) 1 Cap Cap 1 CAP PO DAILY Spironolactone (Aldactone) 100 Mg Tab 100 MG PO BID, 0 Refills Tocopheryl Acet,Dl-Alpha (Vitamin E/Dl-Alpha) 400 Unit Cap 400-800 INTER.UNIT PO DAILY Trazodone Hcl (Trazodone) 50 Mg Tab 50-100 MG PO HS PRN, TAB PRN SLEEP Tretinoin (Tretinoin) 0.05 % Cre 1 APPLN TOP HS, GM 3 Refills Admission Information HPI (per Admitting provider): 41 yo F 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 She has had these in the past, the last which was in Apr 2016. She reports eating dinner last night and then developing abdominal discomfort, nausea and excessive vomiting starting around 11pm. She knew what she was experiencing and wanted to see if it would resolve prior to coming into the ER, but her symptoms persisted. She did also see one blackish stool last night and didn't have a BM after that. She has been feeling fine otherwise, prior to this denying fevers, chills, nausea, vomiting, intolerance to PO or any other symptoms. She does have some chronic abdominal discomfort right over an area of presumed scar tissue from one of her prior surgeries which bothers her daily, including when she exercises or moves around. She has reported these concerns to her surgeon as an outpatient, who has verbalized hesitation to her because of not wanting to create more scar tissue. In the ER, she is HD stable. She had an NGT placed by the ER physician, with frothy greenish fluid in the suction canister since placement. She is already reportedly feeling better and has bowel sounds on exam. Physical Exam (per Admitting): General Appearance: WD/WN, no apparent distress Head: normocephalic, atraumatic Eyes: normal inspection, PERRL, sclerae normal ENT: normal ENT inspection, hearing grossly normal, pharynx normal Neck: supple, no adenopathy, no JVD, trachea midline Respiratory/Chest: lungs clear, normal breath sounds, no respiratory distress, no accessory muscle use Cardiovascular: regular rate, rhythm, no edema, no gallop, no JVD, no murmur , normal peripheral pulses Abdomen/GI: normal bowel sounds, soft, + tenderness (only in epigastric area where she has chronic pain ), + mass (sharp wire-like entity palpaple in area superior to her abdominal incision), + pertinent finding (no guarding or rebound, able to move around the bed with ease. ) Back: normal inspection Extremities/Musculoskelatal: normal inspection, no calf tenderness, no pedal edema, normal range of motion Neurologic/Psych: adult literacy teacher II-XII nml as tested, no motor/sensory deficits, alert , normal mood/affect, oriented x 3 Skin: normal color, warm/dry, no rash, + pertinent finding (well-healed abdominal scar) Lymphatic: no adenopathy Hospital Course She was admitted to the floor overnight and remained HD stable. She had 1L of nasogastric output overnight but was passing gas, had a BM and had a reduction in nausea and abdominal pain. As she has dealt with this in the past, she is very comfortable with the process of advancing her diet on her own, and she expressed a desire to go home this morning. Dr. Emanuel agree as long as she was tolerant of some clear liquids and pulled the NGT this morning. She subsequently handled an entire tray of clears without issue over a few hours, and she was discharged to home in stable condition with close follow-up with PCP office within one week. It is uncertain what caused the SBO, however, she has had multiple bowel surgeries in the past and suffers with chronic constipation. She did express a wish to have a post-operative scar revision performed in an area that causes her frequent pain with exercise, unrelated to the pain from obstruction which has resolved. She may express an interest to be seen by a plastic surgeon to have this considered-appreciate your referral to facilitate this for her. Total time spent on discharge = 60 minutes This includes examination of the patient, discharge planning, medication reconciliation, and communication with other providers. Discharge Instructions Discharge Instructions Date of Service Feb 05, 2017. Admission Reason for Admission: SBO Discharge Discharge Diagnosis / Problem: SBO Discharge Goals Goal(s): Prevent Disease Progression Activity Recommendations Activity Limitations: per Instructions/Follow-up section . Instructions / Follow-Up Instructions / Follow-Up Please continue all medications as instructed above. You have a follow-up appointment from this hospitalization with Dr. Irwin Márquez at the [facility] set for 02/09 @ 12:55pm. Follow-up with General Surgery vs Plastic Surgery non-emergently as discussed. It was a pleasure taking care of you! Call if you have any questions or problems. You can reach a [facility] hospitalist on duty at [facility] 24 hours a day by calling [phone]. Take care of yourself. Jennie Mejía, DO Additional Copies To Irwin Márquez M.D.(NEVAEH
== END 2017-02-05 13:42 | disposition home or self-care (01) | DRG 390 ==
LOC: C.EDB 13:15 → C.MSW 15:54 → ENRESERV 16:14
PROVIDERS: ADMIT Hospitalist; ATTEND Hospitalist
DX: K56.60 Unspecified intestinal obstruction (principal); E03.9 Hypothyroidism, unspecified; F90.9 Attention-deficit hyperactivity disorder, unspecified type; K58.1 Irritable bowel syndrome with constipation; F41.9 Anxiety disorder, unspecified; R60.9 Edema, unspecified; F32.9 Major depressive disorder, single episode, unspecified; Z51.81 Encounter for therapeutic drug level monitoring; Z79.899 Other long term (current) drug therapy; Z87.19 Personal history of other diseases of the digestive system; Z90.49 Acquired absence of other specified parts of digestive tract; Z82.0 Family history of epilepsy and other diseases of the nervous system

== ENCOUNTER → 2017-03-21 | Outpatient (CLI) | payer OTHER ==
[~2017-03-21] MED LIST changes: -ALBU1AER9 INH; -CYAN3INJ INJ; +CYNI1000 INJ; -EVEN1000 PO; -FLUO0.0543 TOP; +LDXO60 TOP; -LEVO100T PO; +LEVO112T2 PO; -MAGNSUS5 PO; +MOML PO; -VITA400C15 PO; +VNTHFA/IN INH; +VTME400 PO
--- NOTE | 2017-03-21 13:11 | DIAGNOSTIC IMAGING REPORT ---
GI W/AIR SMALL BOWEL ROUTINE CLINICAL HISTORY: Generalized abdominal pain. History of small bowel obstruction. COMPARISON STUDY: Abdomen and pelvis CT 04/29/2016. FLUOROSCOPY TIME: 3.5 minutes. 43 fluoroscopic spot and overhead images were obtained. FINDINGS: The patient swallowed barium without difficulty. The esophagus is normal in course, caliber, motility. No hiatus hernia. No gastroesophageal reflux. No gastric ulcerations. The duodenal bulb and duodenal C sweep are within normal limits. Additional imaging was performed for the small bowel. Contrast reached the residual colon/rectum at the 3 hour and 15 minute time interval. The patient is status post subtotal colectomy. No evidence for bowel obstruction. Large amount well-formed stool seen within the residual rectum. The distal small bowel is slightly distended which is likely within the range normal limits given the postoperative changes of a subtotal colectomy. This is similar to the prior abdomen and pelvis CT. IMPRESSION: 1. Normal upper GI series. 2. No significant change in the mild small bowel dilatation status post partial colectomy. No evidence for bowel obstruction. 3. Large amount well-formed stool seen within the residual rectum. Electronically signed by: Ja Fall M.D. 03/21/2017 1:10 PM Dictated Date/Time: 03/21/2017 1:04 PM
== END | disposition home or self-care (01) ==
LOC: C.RAD 08:34
PROVIDERS: ATTEND Physician Assistant Surgical
DX: Z87.19 Personal history of other diseases of the digestive system (principal)

== ENCOUNTER → 2017-06-25 | Outpatient (CLI) | payer OTHER ==
[~2017-06-25] MED LIST changes: +BUPR150T5 PO; +PANT1TAB48 PO; +TRET-55 TOP; -TRET0.0522 TOP
[2017-06-25 14:03] LABS: PARTIAL THROMBOPLASTIN RATIO 1.2; PROTHROMBIN TIME (PATIENT) 10.8 SECONDS (9.0-12.0)
== END | disposition home or self-care (01) ==
LOC: C.LAB 13:37
PROVIDERS: ATTEND Physician Assistant
DX: L91.0 Hypertrophic scar (principal)

== ENCOUNTER → 2017-06-27 | Day surgery (SDC) | payer OTHER ==
[2017-06-26 15:26] VITALS: Ht 154.9 cm; Wt 50.0 kg
[~2017-06-27] VITALS: Ht 154.9 cm; Wt 50.0 kg
[~2017-06-27] MED LIST changes: +ACETAMINOPHEN 1000 MG/100 ML IV IV ONE; +ACETAMINOPHEN 325 MG TAB PO PRN; +ATROPINE SULFATE 0.1 MG/ML 5ML SYR IV PRN; +BUPIVACAINE 0.25% 30 ML VIAL ONE; -BUPRTAB51 PO; +CEFAZOLIN 1000MG IV PUSH 5 ML IV SCH; +CEFAZOLIN 2000MG IV PUSH 10 ML IV SCH; +CLINDAMYCIN IV 300 MG in DEXTROSE 5% ADD-VANTAGE 50ML 50 ML IV ONE; +CLINDAMYCIN PHOS 150 MG/ML 2 ML VIAL IV SCH; +EpHEDrine SULFATE INJ 50 MG/ML AMP IV PRN; +FENTANYL CITRATE INJ 50 MCG/1 ML 2 ML VIAL ONE; +GENTIAN VIOLET TOP SOLN DROP CHARGE ONE; +LACTATED RINGER'S 1000ML 1,000 ML IV SCH; +LIDOCAINE HCL 2% 2 ML VIAL (20MG/ML) ONE; +LIDOCAINE/EPINEPHRINE 1% INJ 50 ML VIAL ONE; +MIDAZOLAM HCL 1 MG/ML 2ML VIAL ONE; +ONDANSETRON INJ 2 MG/ML 2 ML VIAL IV PRN; +ONDANSETRON INJ 2 MG/ML 2 ML VIAL ONE; +OXYCODONE/ACETAMINOPHEN 5-325 TAB PO PRN; +PROMETHAZINE HCL INJ 25 MG/ML 1 ML VIAL ONE; +PROPOFOL IV EMULSION 10 MG/ML 20 ML VIAL IV ONE; +SCOPOLAMINE 1.5 MG TDSY TD ONE; +SODIUM CHLORIDE 0.9% 1000ML 1,000 ML IV SCH; -VTME400 PO
--- NOTE | 2017-06-27 13:16 | History & Physical Bridge - SC ---
H&P Re-Evaluation Bridge Note: I have examined the patient, reviewed the History & Physical and in the interval since the performance of the History & Physical I have noted the following changes of clinical significance: No changes noted
--- NOTE | 2017-06-27 14:35 | [facility] Post Operative Brief Note ---
Immediate Operative Summary Operative Date Jun 27, 2017. Pre-Operative Diagnosis Post Operative Abdominal Scar Post-Operative Diagnosis Same Procedure(s) Performed Abdominal Scar Revision Surgeon Dr. Zaldivar Clinical Documentation Improvement Specialist Surgeon(s) Shyla Hanna PA-C Estimated Blood Loss 10ml Findings tethered scar, large suture knot Specimens A.) Abdominal Scar Anesthesia general Complication(s) None Disposition Recovery Room / PACU
--- NOTE | 2017-06-27 14:44 | Discharge Instructions ---
Discharge Instructions Date of Service Jun 27, 2017. Admission Reason for Admission: Post Operative Abdominal Scar Discharge Discharge Diagnosis / Problem: post operative scar Discharge Goals Goal(s): Decrease discomfort Activity Recommendations Activity Limitations: per Instructions/Follow-up section ACTIVITY RECOMMENDATIONS: __Normal activities _x_No bending, lifting or straining __No driving _x_Driving allowed when you are off pain medications _x_Walking permitted __You should have help at home for ___ days DRESSINGS: __No dressings required _x_Keep dressings dry/in place until 2 days after surgery. Then, cut a piece of yellow sticky gauze and place in umbilicus daily. Cover with a regular gauze and band-aid. __Remove dressings ___ and leave dressings off __Apply ice ___ days __Remove dressings and reapply garment __Apply antibiotic ointment (Bacitracin, Neosporin, etc) to wounds 3-4 times/ day for 10 days BATHING: __Keep dressings dry _x_Sponge bathing permitted _x_Showering permitted in 2 days after your change dressings __No swimming, hot tubs or soaking in a tub MEDICATIONS: Resume previous medications unless instructed otherwise by your surgeon. _x_Do not use aspirin, Motrin, Advil or Ibuprofen as these may promote bleeding. Please use Tylenol. _x_Prescription(s) provided: pain medication was provided at your last office visit OTHER INSTRUCTIONS: __Record drain output 2-3 times per day SPECIAL CARE INSTRUCTIONS: * It is normal to have a mild fever after surgery. If your temperature is higher than 101.5 degrees F, please call the office at [phone]. * Constipation is a typical side effect of pain medication. An over-the- counter stool softener will help relieve this. * Leaking around surgical drains may occur and should not cause concern. Sometimes these drains become clogged. If this happens, remove the bulb and milk the clot out of the tube, then replace the bulb. * Drainage from wounds after liposuction is normal and should be expected. Garments will become soiled. You should protect furniture and bedding. This drainage should mostly subside within 2-3 days. Leave garments in place unless instructed to remove them. * If you have unusual drainage from a wound or are concerned you have an infection or have any questions or concerns, please call the office at [phone]. FOLLOW UP VISIT: If not already scheduled, please call the office, , when you return home after surgery to schedule an appointment to be seen in _6__ days. . Current Hospital Diet Patient's current hospital diet: Discharge Diet Recommended Diet: Regular Diet Procedures Procedures Performed: Abdominal Scar Revision Pending Studies Studies pending at discharge: no Medical Emergencies . Who to Call and When: Medical Emergencies: If at any time you feel your situation is an emergency, please call 911 immediately. . Non-Emergent Contact Non-Emergency issues call your: Primary Care Provider, Surgeon . "Provider Documentation" section prepared by Caryl Hanna. . VTE Core Measure Inpt VTE Proph given/why not?: SCD's [place] Drug Monitoring Program Search Results: no issues identified
[2017-06-27] MEDS: FENTANYL CITRATE INJ 50 MCG/1 ML 2 ML VIAL IV PRN ×4 (14:48→15:06)
[2017-06-27 15:42] VITALS: TEMP 37
--- NOTE | 2017-06-27 15:48 | Anesthesia Progress Nt - [facility] ---
Anesthesia Post Op Note Date & Time Jun 27, 2017 at 15:47 Vital Signs Vital Signs Past 12 Hours Date Time Temp Pulse Resp B/P (MAP) Pulse Ox O2 Delivery O2 Flow Rate FiO2 06/27/17 15:42 37.0 67 16 119/66 (83) 99 Room Air 06/27/17 15:32 78 17 98 06/27/17 15:32 78 17 06/27/17 15:31 119/59 06/27/17 15:31 36.9 70 15 119/59 98 Room Air 06/27/17 15:30 74 13 99 06/27/17 15:30 72 13 06/27/17 15:26 112/73 06/27/17 15:25 80 12 06/27/17 15:25 79 12 98 06/27/17 15:21 113/71 06/27/17 15:20 65 13 100 06/27/17 15:20 66 13 06/27/17 15:15 72 16 06/27/17 15:15 72 16 113/70 100 06/27/17 15:11 115/70 06/27/17 15:10 69 17 06/27/17 15:10 69 17 100 06/27/17 15:06 116/70 06/27/17 15:05 80 14 100 06/27/17 15:05 79 14 06/27/17 15:01 131/75 06/27/17 15:00 77 13 06/27/17 15:00 76 13 100 06/27/17 14:56 116/77 06/27/17 14:55 77 12 06/27/17 14:55 77 12 100 06/27/17 14:51 116/78 06/27/17 14:50 86 14 06/27/17 14:50 82 14 99 06/27/17 14:46 118/59 06/27/17 14:45 84 13 06/27/17 14:45 84 13 100 06/27/17 14:44 37.1 89 18 111/70 100 Mask 6 06/27/17 14:41 111/70 06/27/17 10:37 36.5 59 16 104/52 (69) 99 Room Air Notes Mental Status: alert / awake / arousable, participated in evaluation Pt Amnestic to Procedure: Yes Nausea / Vomiting: adequately controlled Pain: adequately controlled Airway Patency, RR, SpO2: stable & adequate BP & HR: stable & adequate Hydration State: stable & adequate Anesthetic Complications: no major complications apparent
[2017-06-27 16:13] VITALS: BP 97/54; PULSE 61; O2SAT 100
--- NOTE | 2017-06-28 07:47 | OPERATIVE REPORT ---
DATE OF OPERATION: 06/27/2017 PREOPERATIVE DIAGNOSIS: Painful contracted abdominal scar. POSTOPERATIVE DIAGNOSIS: Same. PROCEDURE: Midline abdominal scar revision. SURGEON: Dr. Meena Zaldivar. ASSOCIATE VICE PRESIDENT: Caryl Hanna PA-C. ANESTHESIA: General. COMPLICATIONS: None. INDICATION FOR THE PROCEDURE: The patient is a 42-year-old female who was referred [facility] for revision of an abdominal scar due to stabbing pain sensation she was experiencing in the upper portion of the incision. She has a history of multiple laparotomies and lysis of adhesions. BRIEF DESCRIPTION OF THE PROCEDURE: Risks, benefits, and alternatives of the procedure were explained to the patient, who agreed and signed consent. She was identified and marked in the preoperative holding area. She was brought to the operating room, where she was positioned supine and placed under anesthesia without incident. Surgical site was prepped and draped sterilely. A time-out procedure was performed. The entire midline abdominal scar had been marked in an elliptical fashion, incorporating some surrounding soft tissue in order to facilitate wound eversion as the scar was tacked down to fascia. Additionally, the umbilicus was marked in order to improve its cosmetic appearance as it currently was essentially buried within the scar. 1% lidocaine with epinephrine with 0.25% Marcaine plain was used to anesthetize the incisions. A 15 blade scalpel was used to make the incision through dermis and underlying subcutaneous fat. Incision was deepened using electrocautery down to abdominal wall fascia. I began first by elevating the scar inferiorly to the level of the umbilicus and superiorly to the level of the umbilicus as well. Skin hooks were used to retract the umbilicus where the umbilical incision was made. This incision was deepened using electrocautery and the umbilical stalk was dissected free. The remainder of the soft tissue and scar were then dissected around the umbilicus and removed. Superiorly, there was a large protruding palpable Prolene knot, which was trimmed as this was at the location of the patient's pain. Once hemostasis was achieved, the wound edges were undermined minimally to facilitate eversion and closure of the wound edges. 2-0 Vicryl deep dermal and subcutaneous sutures were placed followed by 3-0 PDS superficial dermal sutures. The umbilicus was inset by creating a small triangular incision on each side of the scar and the umbilicus was delivered and inset using 4-0 chromic half buried vertical mattress and half buried horizontal mattress sutures. The remainder of the skin was closed using 3-0 Monocryl running subcuticular suture. Dermabond Prineo was applied and Xeroform was packed into the umbilicus. The maximal scar excision was 18 cm and maximal closure was 20 cm. The procedure was tolerated well. The patient was awakened and transferred to recovery room in satisfactory condition. Caryl Hanna PA-C was present and scrubbed throughout the entire procedure and was instrumental in performing simultaneous wound closure. I attest to the content of the Intraoperative Record and any orders documented therein. Any exception s are noted below.
== END | disposition home or self-care (01) ==
LOC: X.SURG 10:19
PROVIDERS: ATTEND Plastic Surgery
DX: L91.0 Hypertrophic scar (principal); J45.909 Unspecified asthma, uncomplicated; G47.30 Sleep apnea, unspecified; K58.9 Irritable bowel syndrome, unspecified; Z79.899 Other long term (current) drug therapy

== ENCOUNTER → 2017-09-06 | Outpatient (CLI) | payer OTHER ==
[~2017-09-06] MED LIST changes: -ACETAMINOPHEN 1000 MG/100 ML IV IV ONE; -ACETAMINOPHEN 325 MG TAB PO PRN; -ATROPINE SULFATE 0.1 MG/ML 5ML SYR IV PRN; -BUPIVACAINE 0.25% 30 ML VIAL ONE; -CEFAZOLIN 1000MG IV PUSH 5 ML IV SCH; -CEFAZOLIN 2000MG IV PUSH 10 ML IV SCH; -CLINDAMYCIN IV 300 MG in DEXTROSE 5% ADD-VANTAGE 50ML 50 ML IV ONE; -CLINDAMYCIN PHOS 150 MG/ML 2 ML VIAL IV SCH; +CYCL5TAB PO; -EpHEDrine SULFATE INJ 50 MG/ML AMP IV PRN; -FENTANYL CITRATE INJ 50 MCG/1 ML 2 ML VIAL ONE; -GENTIAN VIOLET TOP SOLN DROP CHARGE ONE; -LACTATED RINGER'S 1000ML 1,000 ML IV SCH; -LIDOCAINE HCL 2% 2 ML VIAL (20MG/ML) ONE; -LIDOCAINE/EPINEPHRINE 1% INJ 50 ML VIAL ONE; -MIDAZOLAM HCL 1 MG/ML 2ML VIAL ONE; -OMEG10007 PO; -ONDANSETRON INJ 2 MG/ML 2 ML VIAL IV PRN; -ONDANSETRON INJ 2 MG/ML 2 ML VIAL ONE; -OXYCODONE/ACETAMINOPHEN 5-325 TAB PO PRN; +PANT1TAB3 PO; -PANT1TAB48 PO; -PROMETHAZINE HCL INJ 25 MG/ML 1 ML VIAL ONE; -PROPOFOL IV EMULSION 10 MG/ML 20 ML VIAL IV ONE; -SCOPOLAMINE 1.5 MG TDSY TD ONE; -SODIUM CHLORIDE 0.9% 1000ML 1,000 ML IV SCH
[2017-09-06 17:59] LABS: PTT PATIENT 26.6 SECONDS (21.0-31.0)
[2017-09-06 18:01] LABS: BLOOD UREA NITROGEN 20 mg/dl (7-18); CALCIUM 8.6 mg/dl (8.5-10.1); CARBON DIOXIDE 27 mmol/L (21-32); CREATININE 0.77 mg/dl (0.60-1.20); GLUCOSE 100 mg/dl (70-99); POTASSIUM 4.3 mmol/L (3.5-5.1); SODIUM 133 mmol/L (136-145)
[2017-09-06 18:02] LABS: BASO % 0.6 %; BASO ABS # 0.03 K/uL (0-0.2); EOS % 1.5 %; EOS ABS # 0.08 K/uL (0-0.5); HEMATOCRIT 40.7 % (37-47); HEMOGLOBIN 13.4 g/dL (12.0-16.0); LYMPH % 22.3 %; LYMPH ABS # 1.16 K/uL (1.2-3.4); MEAN CELL VOLUME 94.2 fL (80-100); MEAN CORPUSCULAR HGB CONC 32.9 g/dl (32-36); MEAN PLATELET VOLUME 10.4 fL (7.4-10.4); MONO % 9.4 %; MONO ABS # 0.49 K/uL (0.11-0.59); NEUT % 66.2 %; NEUT ABS # 3.45 K/uL (1.4-6.5); PLATELET COUNT 353 K/uL (130-400); RED CELL DISTRIBUTION WIDTH CV 14.1 % (11.5-14.5); RED CELL DISTRIBUTION WIDTH SD 48.7 fL (36.4-46.3); WHITE BLOOD COUNT 5.21 K/uL (4.8-10.8)
== END | disposition home or self-care (01) ==
LOC: C.LABPBG 13:18
PROVIDERS: ATTEND Physician Assistant
DX: Z01.818 Encounter for other preprocedural examination (principal); Z41.1 Encounter for cosmetic surgery

== ENCOUNTER → 2017-09-12 | Day surgery (SDC) | payer SELFPAY ==
[2017-08-30 09:10] VITALS: Ht 154.9 cm; Wt 50.0 kg
[~2017-09-12] VITALS: Ht 154.9 cm; Wt 50.0 kg
[~2017-09-12] MED LIST changes: +ACETAMINOPHEN 325 MG TAB PO PRN; +ATROPINE SULFATE 0.1 MG/ML 5ML SYR IV PRN; +BACITRACIN 50000 UNIT VIAL ONE; +BUPIVACAINE 0.25% 30 ML VIAL ONE; +CEFAZOLIN 2000MG IV PUSH 15 ML IV SCH; +CEFAZOLIN SOD 1 GM VIAL ONE; +EpHEDrine SULFATE INJ 50 MG/ML AMP IV PRN; +FENTANYL CITRATE INJ 50 MCG/1 ML 2 ML VIAL ONE; +GENTAMICIN SULFATE 40 MG/ML 2 ML VIAL ONE; +GLYCOPYRROLATE INJ 0.2 MG/ML VIAL ONE; +LACTATED RINGER'S 1000ML 1,000 ML IV SCH; +LIDOCAINE HCL 2% 2 ML VIAL (20MG/ML) ONE; +LIDOCAINE/EPINEPHRINE 1% 20 ML VIAL ONE; +MIDAZOLAM HCL 1 MG/ML 2ML VIAL ONE; +NEOSTIGMINE METHYLSULFATE 5 MG/5 ML SYR ONE; +ONDANSETRON INJ 2 MG/ML 2 ML VIAL IV PRN; +ONDANSETRON INJ 2 MG/ML 2 ML VIAL ONE; +OXYCODONE/ACETAMINOPHEN 5-325 TAB PO PRN; +PROPOFOL IV EMULSION 10 MG/ML 20 ML VIAL IV ONE; +ROCURONIUM BROMIDE 10 MG/ML 5 ML VIAL IV ONE; +SCOPOLAMINE 1.5 MG TDSY TD ONE; +SODIUM CHLORIDE 0.9% 1000ML 1,000 ML IV SCH; +SODIUM CHLORIDE 0.9% INJ 10 ML VIAL ONE; +SUCCINYLCHOLINE CHLORIDE 20 MG/ML 10 ML VIAL IV ONE
--- NOTE | 2017-09-12 10:21 | [facility] Post Operative Brief Note ---
Immediate Operative Summary Operative Date Sep 12, 2017. Pre-Operative Diagnosis Hypomastia, Cosmetic Surgery Post-Operative Diagnosis Same Procedure(s) Performed Bilateral Breast Augmentation With Silicone Implants Surgeon Dr. Zaldivar Employment Director Surgeon(s) Shyla Hanna PA-C Estimated Blood Loss 1 Findings Consistent with Post-Op Diagnosis Specimens none Anesthesia Type General Complication(s) none Disposition Disposition: Recovery Room / PACU
--- NOTE | 2017-09-12 10:30 | Discharge Instructions ---
Discharge Instructions Date of Service Sep 12, 2017. Admission Reason for Admission: Hypomastia, Cosmetic Surgery Discharge Discharge Diagnosis / Problem: hypomastia Discharge Goals Goal(s): Decrease discomfort, Improve function Activity Recommendations Activity Limitations: as noted below ACTIVITY RECOMMENDATIONS: __Normal activities _x_No bending, lifting or straining __No driving __Driving allowed when you are off pain medications _x_Walking permitted __You should have help at home for ___ days DRESSINGS: __No dressings required _x_Keep dressings dry/in place until first office visit. You may switch to a tighter support bra (front closure sports bra) __Remove dressings ___ and leave dressings off __Apply ice ___ days __Remove dressings and reapply garment __Apply antibiotic ointment (Bacitracin, Neosporin, etc) to wounds 3-4 times/ day for 10 days BATHING: _x_Keep dressings dry __Sponge bathing permitted __Showering permitted _x_No swimming, hot tubs or soaking in a tub MEDICATIONS: Resume previous medications unless instructed otherwise by your surgeon. _x_Do not use aspirin, Motrin, Advil or Ibuprofen as these may promote bleeding. Please use Tylenol. _x_Prescription(s) provided: pain medication and antibiotics provided at your office visit. Muscle relaxer provided today OTHER INSTRUCTIONS: __Record drain output 2-3 times per day SPECIAL CARE INSTRUCTIONS: * It is normal to have a mild fever after surgery. If your temperature is higher than 101.5 degrees F, please call the office at [phone]. * Constipation is a typical side effect of pain medication. An over-the- counter stool softener will help relieve this. * Leaking around surgical drains may occur and should not cause concern. Sometimes these drains become clogged. If this happens, remove the bulb and milk the clot out of the tube, then replace the bulb. * Drainage from wounds after liposuction is normal and should be expected. Garments will become soiled. You should protect furniture and bedding. This drainage should mostly subside within 2-3 days. Leave garments in place unless instructed to remove them. * If you have unusual drainage from a wound or are concerned you have an infection or have any questions or concerns, please call the office at [phone]. FOLLOW UP VISIT: If not already scheduled, please call the office, , when you return home after surgery to schedule an appointment to be seen in __2_ days. . Current Hospital Diet Patient's current hospital diet: Discharge Diet Recommended Diet: Regular Diet Procedures Procedures Performed: Bilateral Breast Augmentation With Silicone Implants Pending Studies Studies pending at discharge: no Medical Emergencies . Who to Call and When: Medical Emergencies: If at any time you feel your situation is an emergency, please call 911 immediately. . Non-Emergent Contact Non-Emergency issues call your: Primary Care Provider, Surgeon . "Provider Documentation" section prepared by Caryl Hanna. . VTE Core Measure Inpt VTE Proph given/why not?: SCD's [place] Drug Monitoring Program Search Results: no issues identified
[2017-09-12] MEDS: FENTANYL CITRATE INJ 50 MCG/1 ML 2 ML VIAL IV PRN ×3 (10:44→11:43)
--- NOTE | 2017-09-12 11:29 | Anesthesia Progress Nt - [facility] ---
Anesthesia Post Op Note Date & Time Sep 12, 2017 at 11:29 Vital Signs Vital Signs Past 12 Hours Date Time Temp Pulse Resp B/P (MAP) Pulse Ox O2 Delivery O2 Flow Rate FiO2 09/12/17 11:27 80 10 09/12/17 11:27 81 10 100 09/12/17 11:25 116/78 09/12/17 11:22 36.9 80 14 116/78 100 Room Air 09/12/17 11:22 77 12 100 09/12/17 11:22 74 12 09/12/17 11:21 101/49 09/12/17 11:17 73 16 09/12/17 11:17 74 16 100 09/12/17 11:15 109/74 09/12/17 11:12 63 13 100 09/12/17 11:12 61 13 09/12/17 11:10 120/71 09/12/17 11:07 69 8 09/12/17 11:07 72 8 100 09/12/17 11:05 106/66 09/12/17 11:02 83 12 100 09/12/17 11:02 84 12 09/12/17 11:00 106/60 09/12/17 10:57 63 10 09/12/17 10:57 62 10 100 09/12/17 10:55 108/60 09/12/17 10:52 61 12 100 09/12/17 10:52 61 12 09/12/17 10:50 103/59 09/12/17 10:47 54 14 100 09/12/17 10:47 53 14 09/12/17 10:46 97/41 09/12/17 10:42 75 23 09/12/17 10:42 75 23 100 09/12/17 10:40 101/62 09/12/17 10:38 106/50 09/12/17 10:37 36.7 67 12 106/50 100 Mask 6 09/12/17 07:29 36.5 88 16 102/68 (79) 99 Room Air Notes Mental Status: alert / awake / arousable, participated in evaluation Pt Amnestic to Procedure: Yes Nausea / Vomiting: adequately controlled Pain: adequately controlled Airway Patency, RR, SpO2: stable & adequate BP & HR: stable & adequate Hydration State: stable & adequate Anesthetic Complications: no major complications apparent
[2017-09-12 12:34] VITALS: TEMP 36.8
[2017-09-12 12:48] VITALS: BP 96/62; PULSE 59; O2SAT 99
--- NOTE | 2017-09-13 08:20 | OPERATIVE REPORT ---
DATE OF OPERATION: 09/13/2017 PREOPERATIVE DIAGNOSES: Bilateral hypomastia and desire for breast augmentation. POSTOPERATIVE DIAGNOSES: Same. PROCEDURE: Bilateral dual plane 3 breast augmentation with silicone implants. SURGEON: Dr. Meena Zaldivar. GIVING OFFICER: Caryl Hanna PA-C ANESTHESIA: General. COMPLICATIONS: None. INDICATION FOR THE PROCEDURE: The patient is a 42-year-old female who presented to my office with concerns about diminished breast volume and desired augmentation. After discussion, we elected to proceed with bilateral dual plane augmentation with silicone implants. BRIEF DESCRIPTION OF THE PROCEDURE: Risks, benefits, and alternatives of the procedure were explained to the patient, who agreed and signed consent. She was identified and marked in the preoperative holding area. She was brought to the operating room, where she was positioned supine and placed under general anesthesia without incident. Surgical site was prepped and draped sterilely. A time-out procedure was performed. Tegaderms were placed as a barrier over the nipple-areolar complexes bilaterally. [place] incision was marked in the inframammary fold using medial border of the areola as the medial most aspect of the incision. 1% lidocaine with epinephrine was used to anesthetize the planned incisions as well as the breast parenchyma. A 15 blade scalpel was used to make the incision through skin and into underlying dermis. The incision was deepened using electrocautery through subcutaneous fat and breast parenchyma. The pectoralis fascia was identified and the breast was dissected in the subglandular plane up to the superior border of the nipple-areolar complex to facilitate dual plane 3 type augmentation. Once this was accomplished and hemostasis was achieved, the lateral border of the pectoralis major muscle was identified and elevated. A retropectoral pocket was created using lighted retractor and electrocautery. Dissection was first performed superiorly and laterally and then dissection was carried medially along the inframammary fold. Pectoralis major muscle fibers were divided using electrocautery, leaving the pectoralis fascia intact along the inframammary fold. Small tendinous attachments medially were divided using electrocautery, leaving the origin of the pectoralis intact along the sternum. Once I was satisfied with the pocket dissection, hemostasis was achieved with electrocautery. Following this, the wound was irrigated with saline and sizer implants were tried. I initially began with a 350-mL extra full profile implant which I placed into the pocket. The patient had a desire to be as large as possible. A 340-mL sizer did have some resulting skin laxity and therefore, I selected a 375-mL extra full profile implant, which achieved our desired cosmetic result. The sizer was removed, pocket was irrigated and packed using antibiotic soaked lap sponges and Marcaine. A similar dissection was undertaken on the right side. Once I was satisfied with the shape and the pocket size of both breasts, the pockets were inspected for hemostasis and again irrigated with triple antibiotic irrigation. Gloves were changed, instruments were wiped down and I selected a 375-mL [employer] besomebody.ira soft touch breast implant, style SSX, which was then placed in the left breast pocket. The position was checked and the implant was placed inferiorly as possible along the inframammary fold. Superficial fascia was reapproximated using 2-0 Vicryl interrupted sutures, followed by approximation of deep dermis using 2-0 Vicryl suture, superficial dermis using 3-0 PDS suture and closure of the incision using 3-0 Monocryl running subcuticular suture. An identical implant was selected for the right side and closure was performed in similar fashion. Dermabond was applied to both incisions. Dry dressings and a surgical bra were placed. The patient was awakened and transferred to recovery in satisfactory condition. I attest to the content of the Intraoperative Record and any orders documented therein. Any exception s are noted below.
== END | disposition home or self-care (01) ==
LOC: X.SURG 07:14
PROVIDERS: ATTEND Plastic Surgery
DX: Z41.1 Encounter for cosmetic surgery (principal); N64.82 Hypoplasia of breast; R92.2 Inconclusive mammogram; J45.909 Unspecified asthma, uncomplicated; K58.9 Irritable bowel syndrome, unspecified; F90.9 Attention-deficit hyperactivity disorder, unspecified type; Z90.49 Acquired absence of other specified parts of digestive tract; Z88.7 Allergy status to serum and vaccine; Z88.2 Allergy status to sulfonamides; Z88.8 Allergy status to other drugs, medicaments and biological substances; Z83.3 Family history of diabetes mellitus; Z80.41 Family history of malignant neoplasm of ovary

== ENCOUNTER 2018-08-06 08:27 | Inpatient (IN) ==
[2018-08-06] MEDS ORDERED: ONDANSETRON INJ 2 MG/ML 2 ML VIAL IV STA ×2 (08:46→11:07)
[2018-08-06] MEDS ORDERED: SODIUM CHLORIDE 0.9% 1000ML 1,000 ML IV ONE (08:46)
[2018-08-06] MEDS ORDERED: HYDROmorphone INJ 0.5 MG/0.5 ML SYR IV STA ×2 (08:46→10:38)
[2018-08-06 08:53] LABS: Basophils # (auto) 0.03 K/uL (0-0.2); Basophils % (auto) 0.3 %; Eosinophils # (auto) 0.05 K/uL (0-0.5); Eosinophils % (auto) 0.4 %; Hematocrit (blood only) 47.3 % (37-47); Hemoglobin 15.9 g/dL (12.0-16.0); Immature Granulocytes # (auto) 0.02 K/uL (0.00-0.02); Immature Granulocytes % (auto) 0.2 %; Lymphocytes # (auto) 0.68 K/uL (1.2-3.4); Lymphocytes % (auto) 5.7 %; Mean Corpuscular Hgb Conc 33.6 g/dL (32-36); Mean Corpuscular Volume 94.6 fL (80-100); Mean Platelet Volume 10.1 fL (7.4-10.4); Monocytes # (auto) 0.49 K/uL (0.11-0.59); Monocytes % (auto) 4.1 %; Neutrophils # (auto) 10.56 K/uL (1.4-6.5); Neutrophils % (auto) 89.3 %; Platelet Count 375 K/uL (130-400); RDW Coefficient of Variation 13.2 % (11.5-14.5); RDW Standard Deviation 45.7 fL (36.4-46.3); White Blood Count 11.83 K/uL (4.8-10.8)
[2018-08-06 09:07] LABS: Albumin Level 5.2 gm/dl (3.4-5.0); BUN Creatinine Ratio 18.5 (10-20); Calcium 10.5 mg/dl (8.5-10.1); Creatinine Clr Calc Pharmacy 45.9 ml/min; Potassium 3.9 mmol/L (3.5-5.1)
[2018-08-06 09:09] LABS: Albumin Globulin Ratio 1.5 (0.9-2); Bilirubin,Total 0.5 mg/dl (0.2-1); Globulin 3.4 gm/dl (2.5-4.0); Total Protein 8.6 gm/dl (6.4-8.2)
--- NOTE | 2018-08-06 09:26 | XRay Report ---
PA CHEST RADIOGRAPH AND UPRIGHT AND SUPINE AP RADIOGRAPHS OF THE ABDOMEN CLINICAL HISTORY: ABD pain/N/V, h/o SBO, colectomy. COMPARISON STUDY: Chest radiograph and abdominal series February 04, 2017. FINDINGS: Lung volumes are normal. There is no pneumothorax or pleural effusion. There is no evidenc e for pulmonary edema or pneumonia. Cardiac size is normal. Mediastinal contours are normal. There ma y be bilateral breast implants. There is no free air. Several loops of moderately dilated small bowel measure up to 5 cm in caliber. Pelvic calcifications likely reflect phleboliths. IMPRESSION: 1. No free air. 2. Moderate small bowel dilatation highly suggestive of a small bowel obstruction. 3. No acute cardiopulmonary findings. Electronically signed by: Jonnathan Goldman M.D. 08/06/2018 9:25 AM
--- NOTE | 2018-08-06 10:40 | Emergency Department Note ---
History of Present Illness General Chief complaint: Vomiting Stated complaint: NAUSEA,VOMITING Time Seen by Provider: 08/06/18 08:36 History of Present Illness Maximum Pain Intensity: 8 43-year-old female who presents to the emergency department for evaluation of "an intestinal blockage". Patient reports a prior history of small bowel obstructions. She has a prior history of abdominal surgery and. The patient reports that her symptoms started last night with discomfort and watery BM. She has also had bilious vomit. She reports that her abdominal pain is constant and worsening, rating her pain an 8 out of 10. She denies fever or chills. She denies any pain extending into the chest, neck or shoulder. The patient is status post cholecystectomy and appendectomy. She denies any shortness of breath or chest pain. Home Medications Home Medications Medication Instructions Recorded Confirmed Type bupropion HCl 150 mg PO BID 08/06/18 08/06/18 History citalopram 20 mg PO DAILY 08/06/18 08/06/18 History cyanocobalamin (vitamin B-12) 1 dose IM DIRECTED 08/06/18 08/06/18 History cyclobenzaprine 5 mg PO DAILY 08/06/18 08/06/18 History dextroamphetamine-amphetamine 15 mg PO BID 08/06/18 08/06/18 History levothyroxine 112 mcg PO DAILY 08/06/18 08/06/18 History linaclotide [Linzess] 290 mcg PO DAILY 08/06/18 08/06/18 History lorazepam 1 mg PO DAILY PRN 08/06/18 08/06/18 History magnesium hydroxide [Milk of 15 ml PO DAILY 08/06/18 08/06/18 History Magnesia] multivitamin 1 tab PO DAILY 08/06/18 08/06/18 History ondansetron 4 mg PO TID PRN 08/06/18 08/06/18 History pantoprazole 40 mg PO DAILY 08/06/18 08/06/18 History spironolactone 100 mg PO BID 08/06/18 08/06/18 History trazodone 50 mg PO PM PRN 08/06/18 08/06/18 History Allergies Allergy/AdvReac Type Severity Reaction Status Date / Time lamotrigine Allergy Mild RASH Verified 08/06/18 08:42 metoclopramide Allergy Mild gittery Verified 08/06/18 08:42 Sulfa (Sulfonamide Allergy Mild RASH Verified 08/06/18 08:42 Antibiotics) Flu Virus Vaccine Allergy Unknown UNKNOWN - Uncoded 08/06/18 08:42 episodes of sickness/ passing out Past Med/Surg History Medical History PCOS (polycystic ovarian syndrome) (Chronic) Chronic constipation (Chronic) Anxiety (Chronic) IBS (irritable bowel syndrome) (Chronic) GERD (gastroesophageal reflux disease) (Chronic) Hypothyroidism (Chronic) ADHD (attention deficit hyperactivity disorder) (Chronic) SBO (small bowel obstruction) (Chronic) "2008, 2011, 2012" On 04/29/16 12:28 Manasa Fuentes wrote "2008. 2011, 2012" Lower extremity edema (Chronic) Surgical History H/O colectomy (Chronic) "2007 - due to motility issues subtotal colectomy with ileorectal anastomosis " H/O: (Resolved) Hx of tonsillectomy (Resolved) Family History Other Colon cancer Multiple sclerosis Ovarian cancer Thyroid disorder Social History Current Living Situation: Spouse Other Information That Helps Us Care for You: No Feels Safe at Home: Yes Safety Concerns: Feels Safe At This Time Smoking Status: Never smoker Do You Dip or Chew Tobacco: No Second Hand Exposure: No Tobacco Cessation Education Requested by Patient: No Hx Alcohol Use: Yes Alcohol Intake Frequency: holidays/special occasions only Hx Substance Use: No Beliefs That Will Affect Care: None Communication Ability: Effective Home Based Assistant Required: No Review of Systems HEENT: Denies dizziness, visual problems, hearing loss, tinnitus. Denies difficulty swallowing or oral lesions. PULMONARY: Denies cough, shortness of breath, sputum production or hemoptysis. CARDIOVASCULAR: Denies chest pain, palpitations, dyspnea on exertion, orthopnea or peripheral edema. GASTROINTESTINAL: See HPI. GENITOURINARY: Denies dysuria, frequency, urgency or nocturia. NEUROLOGIC: Denies history of epilepsy, CVA, TIA or chronic headaches. MUSCULOSKELETAL: Denies history of joint tenderness/swelling. SKIN: Denies rashes or lesions. PSYCHIATRIC: Denies history of depression or mental illness. ENDOCRINE: History of anxiety and hypothyroidism Physical Exam Vital Signs Vital Signs - 24 hr 08/06/18 08:29 08/06/18 10:06 08/06/18 11:23 Temperature Source Oral Sepsis Recent Fever Within 48 Hours No Sepsis Action Taken by Nursing No Action Required Pulse Rate 93 H Pulse Rate [Finger] 82 81 Respiratory Rate 20 16 18 Respiratory Effort / Characteristics Non-Labored Non-Labored Spontaneous Respiratory Depth Normal Normal Blood Pressure 127/82 Blood Pressure [Left Arm] 115/71 105/78 Blood Pressure Mean 97 Blood Pressure Mean [Left Arm] 85 87 Blood Pressure Position [Left Arm] Pulse Oximetry 100 96 96 Oxygen Delivery Method Room Air Room Air Room Air 08/06/18 12:12 08/06/18 13:30 08/06/18 14:28 Temperature Source Sepsis Recent Fever Within 48 Hours Sepsis Action Taken by Nursing Pulse Rate 80 Pulse Rate [Finger] 85 80 Respiratory Rate 18 17 16 Respiratory Effort / Characteristics Respiratory Depth Blood Pressure 105/78 Blood Pressure [Left Arm] 110/77 106/72 Blood Pressure Mean Blood Pressure Mean [Left Arm] 88 83 Blood Pressure Position [Left Arm] Lying Lying Pulse Oximetry 95 94 97 Oxygen Delivery Method Room Air Room Air 08/06/18 14:48 Temperature Source Sepsis Recent Fever Within 48 Hours Sepsis Action Taken by Nursing Pulse Rate Pulse Rate [Finger] 74 Respiratory Rate 18 Respiratory Effort / Characteristics Respiratory Depth Normal Blood Pressure Blood Pressure [Left Arm] 117/83 Blood Pressure Mean Blood Pressure Mean [Left Arm] 94 Blood Pressure Position [Left Arm] Lying Pulse Oximetry 98 Oxygen Delivery Method Room Air CONSTITUTIONAL: Healthy and well nourished. Alert and oriented X 3. Patient appears in moderate discomfort. HEENT: Normocephalic, atraumatic. Pupils equal, round and reactive. No scleral icterus or conjunctival injection/pallor. Mucous membranes are dry. No tonsillar hypertrophy or posterior pharyngeal erythema. NECK: Full active range of motion without discomfort. No JVD or carotid bruits. RESPIRATORY: Clear to auscultation bilaterally with no wheezing, crackles, rhonchi or stridor. CARDIOVASCULAR: Regular rate and rhythm with no murmurs, rubs or gallops. GASTROINTESTINAL: Bowel sounds present in all quadrants. Abdomen is mildly tender to palpation without obvious rigidity, guarding or rebound. MUSCULOSKELETAL: Full range of motion of all joints without discomfort. INTEGUMENTARY: No rash or other significant dermatologic conditions noted. HEMATOLOGIC: No ecchymosis or petechiae. NEUROLOGIC: No focal neurologic deficits noted. PSYCHIATRIC: Positive affect. Course Patient history and physical exam were performed. Nurse's notes were reviewed. Vital signs were reviewed and were grossly normal. IV access was established , and labs were drawn. The patient was hydrated with a liter of normal saline, and was administered IV Dilaudid and Zofran for pain and nausea. Labs were reviewed to show a mild leukocytosis. Electrolytes were otherwise unremarkable. Sodium is 134. BUN is also mildly elevated at 22 with a normal creatinine. Urinalysis was ordered but pending at the time of dictation. An abdomen obstruction series with a PA chest view is consistent with a small bowel obstruction. Findings were discussed with Dr. Parry, ED attending physician, who recommended hospitalist consultation. The case was further discussed with Dr. Mejía who came to the emergency department for further reevaluation and management. Please see their dictation for further treatment and final disposition. The patient was administered an additional dose of Dilaudid and Zofran while under my care for persistent pain and nausea. Administered Medications Sodium Chloride (Nss 1000ml) 1,000 mls @ 125 mls/hr IV .Q8H NORA Stop: 09/05/18 12:49 Last Admin: 08/06/18 13:07 Dose: 125 mls/hr Acetaminophen (Ofirmev) 65 mls @ 200 mls/hr IV Q8H NORA Stop: 08/08/18 13:59 Last Infusion: 08/06/18 14:33 Dose: 0 mls/hr Admin: 08/06/18 14:07 Dose: 200 mls/hr Morphine Sulfate (Morphine Sulfate) 2 mg IV Q3H PRN PRN Reason: Moderate Pain Stop: 08/20/18 12:49 Last Admin: 08/06/18 13:06 Dose: 2 mg Discontinued Medications Hydromorphone HCl (Dilaudid) 0.5 mg IV NOW STA Stop: 08/06/18 08:47 Last Admin: 08/06/18 08:58 Dose: 0.5 mg Hydromorphone HCl (Dilaudid) 0.5 mg IV NOW STA Stop: 08/06/18 10:39 Last Admin: 08/06/18 11:00 Dose: 0.5 mg Sodium Chloride (Nss 1000ml) 1,000 mls @ 999 mls/hr IV .Q1H1M ONE Stop: 08/06/18 09:46 Last Infusion: 08/06/18 11:00 Dose: 0 mls/hr Admin: 08/06/18 08:59 Dose: 999 mls/hr Ondansetron HCl (Zofran) 4 mg IV NOW STA Stop: 08/06/18 08:47 Last Admin: 08/06/18 08:58 Dose: 4 mg Ondansetron HCl (Zofran) 4 mg IV NOW STA Stop: 08/06/18 11:08 Last Admin: 08/06/18 11:20 Dose: 4 mg Medical Decision Making Medical Records Attestation: I reviewed the patient's medical records. Home Medications Current Medication List: was personally reviewed by me Laboratory Data Attestation: I reviewed the patient's lab results. Result diagrams: 08/06/18 08:45 08/06/18 08:45 Lab Results 08/06/18 08/06/18 08/06/18 Range/Units 08:45 08:45 08:50 WBC 11.83 H (4.8-10.8) K/uL RBC 5.00 (4.2-5.4) M/uL Hgb 15.9 (12.0-16.0) g/dL Hct 47.3 H (37-47) % MCV 94.6 (80-100) fL MCH 31.8 (25-34) pg MCHC 33.6 (32-36) g/dL RDW Std Deviation 45.7 (36.4-46.3) fL RDW Coeff of Any 13.2 (11.5-14.5) % Plt Count 375 (130-400) K/uL MPV 10.1 (7.4-10.4) fL Immature Gran % (Auto) 0.2 % Neut % (Auto) 89.3 % Lymph % (Auto) 5.7 % Pepin % (Auto) 4.1 % Eos % (Auto) 0.4 % Baso % (Auto) 0.3 % Immature Gran # (Auto) 0.02 (0.00-0.02) K/uL Neut # (Auto) 10.56 H (1.4-6.5) K/uL Lymph # (Auto) 0.68 L (1.2-3.4) K/uL Pepin # (Auto) 0.49 (0.11-0.59) K/uL Eos # (Auto) 0.05 (0-0.5) K/uL Baso # (Auto) 0.03 (0-0.2) K/uL Sodium 134 L (136-145) mmol/L Potassium 3.9 (3.5-5.1) mmol/L Chloride 95 L (98-107) mmol/L Carbon Dioxide 31 (21-32) mmol/L Anion Gap 8.0 (3-11) BUN 22 H (7-18) mg/dl Creatinine 1.18 (0.6-1.2) mg/dl Est Cr Clr Drug Dosing 45.9 ml/min Est GFR ( Amer) 65.0 Est GFR (Non-Af Amer) 56.0 BUN/Creatinine Ratio 18.5 (10-20) Glucose 122 H (70-99) mg/dl Calcium 10.5 H (8.5-10.1) mg/dl Total Bilirubin 0.5 (0.2-1) mg/dl AST 46 H (15-37) U/L ALT 50 (12-78) U/L Alkaline Phosphatase 64 (45-117) U/L Total Protein 8.6 H (6.4-8.2) gm/dl Albumin 5.2 H (3.4-5.0) gm/dl Globulin 3.4 (2.5-4.0) gm/dl Albumin/Globulin Ratio 1.5 (0.9-2) Lipase 71 L (73-393) U/L TSH 1.920 (0.300-4.500) uIu/ml Imaging Data Attestation: I personally reviewed and interpreted this imaging study as follows : My Impression: My interpretation of an abdomen obstruction series with a PA chest view is suggestive of a small bowel obstruction. No free air or other acute cardiopulmonary findings are noted. Radiologist report was reviewed. Radiologist's Impression: PA CHEST RADIOGRAPH AND UPRIGHT AND SUPINE AP RADIOGRAPHS OF THE ABDOMEN CLINICAL HISTORY: ABD pain/N/V, h/o SBO, colectomy. COMPARISON STUDY: Chest radiograph and abdominal series February 04, 2017. FINDINGS: Lung volumes are normal. There is no pneumothorax or pleural effusion. There is no evidence for pulmonary edema or pneumonia. Cardiac size is normal. Mediastinal contours are normal. There may be bilateral breast implants. There is no free air. Several loops of moderately dilated small bowel measure up to 5 cm in caliber. Pelvic calcifications likely reflect phleboliths. IMPRESSION: 1. No free air. 2. Moderate small bowel dilatation highly suggestive of a small bowel obstruction. 3. No acute cardiopulmonary findings. Blood Pressure Blood Pressure Findings: Normal blood pressure MDM Narrative Patient presents with complaint of possible bowel obstruction. Patient has had bowel obstructions in the past, and x-rays today confirm likely small bowel obstruction. The patient has a mild leukocytosis and hyponatremia. Patient is afebrile, therefore I do not suspect infection. At this point, CT studies were deferred because of the patient's prior history of multiple CT studies. Impression & Plan SBO (small bowel obstruction) Discharge Plan Visit Data *Final* Discharge Date/Time: 08/06/18 12:12 Chief Complaint: Vomiting Stated Complaint: NAUSEA,VOMITING ED Provider: Con Pozo ED Midlevel Provider: Blanco Kaminski Discharge Problem: SBO (small bowel obstruction) Patient Disposition: Admitted As Inpatient Discharge Instructions Interventions: ED Discharge Assessment Last Done: 08/06/18 12:12
--- NOTE | 2018-08-06 12:02 | History & Physical Report ---
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 denies fever/chills In ER P: 93, R: 20, BP: 127/82, 100% on RA. Was given 1LNSS, zofran, hydromorphone with moderate relief abdominal pain and no further vomiting. -acetaminophen IV scheduled -morphine prn pain, try to limit -zofran prn -NPO -NSS -consider NG tube if worsening or recurrent vomiting -GI consult -cbc, bmp in am (2) IBS (irritable bowel syndrome): Chronic constipation -hold linzess at this time (3) Hypothyroidism: -pending TSH -convert levothyroxine to IV since NPO (4) Anxiety: (5) ADHD (attention deficit hyperactivity disorder): -hold citalopram, wellbutrin, adderral for now -convert to ativan IV prn (6) Lower extremity edema: Chronic BLE edema. No significant edema on exam -hold spironolactone at this time DVT Prophylaxis -no chemical VTE prophylaxis - low risk Follows with Dr Rosmery Solomon for routine care Pt was seen with Dr Mejía. 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 Patient states yesterday started with periumbilical abdominal pain that is nonradiating. Also complains of nausea and vomiting 15 times. Last episode of vomiting upon ER arrival. Had BM last night which was watery which she reports chronic watery stools. Reports tried to eat eggs yesterday. Last hospitalization secondary to small bowel obstruction in 2015 with no surgical intervention required. Denies fever/chills, diaphoresis, hematemesis, hematochezia, melena, HAIRSTON, dizziness, syncope, vision changes, neck pain, CP, SOB , orthopnea, palpitations, cough, sore throat, choking, otalgia, rhinorrhea, paresthesias, weakness, extremity weakness, extremity edema, rashes, urinary symptoms. Allergies Allergy/AdvReac Type Severity Reaction Status Date / Time lamotrigine Allergy Mild RASH Verified 08/06/18 08:42 metoclopramide Allergy Mild gittery Verified 08/06/18 08:42 Sulfa (Sulfonamide Allergy Mild RASH Verified 08/06/18 08:42 Antibiotics) Flu Virus Vaccine Allergy Unknown UNKNOWN - Uncoded 08/06/18 08:42 episodes of sickness/ passing out Home Medications Home Medications Medication Instructions Recorded Confirmed Type bupropion HCl 150 mg PO BID 08/06/18 08/06/18 History citalopram 20 mg PO DAILY 08/06/18 08/06/18 History cyanocobalamin (vitamin B-12) 1 dose IM DIRECTED 08/06/18 08/06/18 History cyclobenzaprine 5 mg PO DAILY 08/06/18 08/06/18 History dextroamphetamine-amphetamine 15 mg PO BID 08/06/18 08/06/18 History levothyroxine 112 mcg PO DAILY 08/06/18 08/06/18 History linaclotide [Linzess] 290 mcg PO DAILY 08/06/18 08/06/18 History lorazepam 1 mg PO DAILY PRN 08/06/18 08/06/18 History magnesium hydroxide [Milk of 15 ml PO DAILY 08/06/18 08/06/18 History Magnesia] multivitamin 1 tab PO DAILY 08/06/18 08/06/18 History ondansetron 4 mg PO TID PRN 08/06/18 08/06/18 History pantoprazole 40 mg PO DAILY 08/06/18 08/06/18 History spironolactone 100 mg PO BID 08/06/18 08/06/18 History trazodone 50 mg PO PM PRN 08/06/18 08/06/18 History Past Med/Surg History Medical History PCOS (polycystic ovarian syndrome) (Chronic) Chronic constipation (Chronic) Anxiety (Chronic) IBS (irritable bowel syndrome) (Chronic) GERD (gastroesophageal reflux disease) (Chronic) Hypothyroidism (Chronic) ADHD (attention deficit hyperactivity disorder) (Chronic) SBO (small bowel obstruction) (Chronic) "2008, 2011, 2012" On 04/29/16 12:28 Manasa Fuentes wrote "2008. 2012" Lower extremity edema (Chronic) Surgical History H/O colectomy (Chronic) "2007 - due to motility issues subtotal colectomy with ileorectal anastomosis " H/O: (Resolved) Hx of tonsillectomy (Resolved) Family History Other Colon cancer Multiple sclerosis Ovarian cancer Thyroid disorder Social History Current Living Situation: Spouse Other Information That Helps Us Care for You: No Feels Safe at Home: Yes Safety Concerns: Feels Safe At This Time Smoking Status: Never smoker Do You Dip or Chew Tobacco: No Second Hand Exposure: No Tobacco Cessation Education Requested by Patient: No Hx Alcohol Use: Yes Alcohol Intake Frequency: holidays/special occasions only Hx Substance Use: No Beliefs That Will Affect Care: None Communication Ability: Effective 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 Review of Systems All systems reviewed & are unremarkable except as noted in HPI & below Physical Exam 2 Vital Signs (Past 24 Hours): Last Vital Signs Pulse 81 08/06/18 11:23 Resp 18 08/06/18 11:23 BP 105/78 08/06/18 11:23 Pulse Ox 96 08/06/18 11:23 Physical Exam: General: no distress, WDWN Head: normocephalic, atraumatic Eyes: PERRL, EOM's intact, conjunctiva non-injected, anicteric ENT: normal inspection external ears, nose, mucous membranes moist Neck: supple, trachea midline, non-tender Lungs: clear, no respiratory distress, no wheezing/rhonchi/rales CV: RRR, no murmur, no pretibial edema Abd: normal BS, soft, mild tenderness to palpation periumbilical Ext: no cyanosis, no calf tenderness Neuro: A&O x 3, no focal deficits noted, normal affect Skin: warm, dry Results & Data Laboratory Results Short CBC 08/06/18 Range/Units 08:45 WBC 11.83 H (4.8-10.8) K/uL Hgb 15.9 (12.0-16.0) g/dL Hct 47.3 H (37-47) % Plt Count 375 (130-400) K/uL [facility] 08/06/18 08:45 Sodium 134 L Potassium 3.9 Chloride 95 L Carbon Dioxide 31 BUN 22 H Creatinine 1.18 Glucose 122 H Calcium 10.5 H Liver Function 08/06/18 Range/Units 08:45 Total Bilirubin 0.5 (0.2-1) mg/dl AST 46 H (15-37) U/L ALT 50 (12-78) U/L Alkaline Phosphatase 64 (45-117) U/L Albumin 5.2 H (3.4-5.0) gm/dl Diagnostic Findings CHEST/ABDOMEN XRAY: IMPRESSION: 1. No free air. 2. Moderate small bowel dilatation highly suggestive of a small bowel obstruction. 3. No acute cardiopulmonary findings. Supervising Physician Co-Signing Physician Notes I have seen and examined the patient and have discussed the case with the provider above. I agree with the assessment and plan as stated. DO Alfonzo
--- NOTE | 2018-08-06 12:21 | Surgery Consultation ---
Date of Consultation August 06, 2018 Assessment & Plan (1) Small bowel obstruction: 43 year-old with recurrent SBO with surgical history of total abdominal colectomy and exploratory laparotomy in 2007. No acute abdominal findings, nontender, mild leukocytosis, afebrile, vss. KUB showing dilated loops of small bowel up to 5 cm. Plan: No acute surgical intervention required. Recommend conservative treatment with IV fluids, NPO for bowel rest, IV pain medication as needed, IV Zofran as needed for nausea or vomiting. Low threshold for NGT , if vomiting occurs would recommend placement OOB to chair and ambulate to aid in GI motility Continue medical management will follow Dr. Emanuel has seen and examined pt, agrees with above. Supervising Physician Co-Signing Physician Notes I have interviewed and examined this patient and reviewed radiology studies and laboratory studies and I agree with the above note. She has had previous episodes of bowel obstruction that have all resolved with conservative management. I agree with conservative management for this episode. We will continue to follow. History of Present Illness Reason for Consultation: Recurrent SBO Attending Physician: Alfonzo History of Present Illness Cassy is a pleasant 43 year-old female who presented to emergency department with complaint of abdominal pain, nausea, and vomiting that began last evening. History of total abdominal colectomy for nonfunctioning colon with subsequent ex lap for twisted omentum and small bowel and recent revision of her laparotomy scar in June of 2016. Has history of SBO in the past which were treated conservatively. States she had a bowel movement last evening around 8 pm. Started noticing increasing abdominal pain, nausea, and vomiting. Not passing any flatus. Emergency room work-up included labs which showed mild leukocytosis of 11K. KUB showing dilated small bowel up to 5 cm consistent with SBO. Since being in the emergency room she has received IV pain medication (Dilaudid ) as well as IV Zofran which has helped. No further episodes of vomiting. States she still has some abdominal pain in the central abdomen. No flatus. Allergies Allergy/AdvReac Type Severity Reaction Status Date / Time lamotrigine Allergy Mild RASH Verified 08/06/18 08:42 metoclopramide Allergy Mild gittery Verified 08/06/18 08:42 Sulfa (Sulfonamide Allergy Mild RASH Verified 08/06/18 08:42 Antibiotics) Flu Virus Vaccine Allergy Unknown UNKNOWN - Uncoded 08/06/18 08:42 episodes of sickness/ passing out Home Medications Home Medications Medication Instructions Recorded Confirmed Type bupropion HCl 150 mg PO BID 08/06/18 08/06/18 History citalopram 20 mg PO DAILY 08/06/18 08/06/18 History cyanocobalamin (vitamin B-12) 1 dose IM DIRECTED 08/06/18 08/06/18 History cyclobenzaprine 5 mg PO DAILY 08/06/18 08/06/18 History dextroamphetamine-amphetamine 15 mg PO BID 08/06/18 08/06/18 History levothyroxine 112 mcg PO DAILY 08/06/18 08/06/18 History linaclotide [Linzess] 290 mcg PO DAILY 08/06/18 08/06/18 History lorazepam 1 mg PO DAILY PRN 08/06/18 08/06/18 History magnesium hydroxide [Milk of 15 ml PO DAILY 08/06/18 08/06/18 History Magnesia] multivitamin 1 tab PO DAILY 08/06/18 08/06/18 History ondansetron 4 mg PO TID PRN 08/06/18 08/06/18 History pantoprazole 40 mg PO DAILY 08/06/18 08/06/18 History spironolactone 100 mg PO BID 08/06/18 08/06/18 History trazodone 50 mg PO PM PRN 08/06/18 08/06/18 History Patient History Medical History PCOS (polycystic ovarian syndrome) (Chronic) Chronic constipation (Chronic) Anxiety (Chronic) IBS (irritable bowel syndrome) (Chronic) GERD (gastroesophageal reflux disease) (Chronic) Hypothyroidism (Chronic) ADHD (attention deficit hyperactivity disorder) (Chronic) SBO (small bowel obstruction) (Chronic) "2008, 2011, 2012" On 04/29/16 12:28 Manasa Fuentes wrote "2008. 2012" Lower extremity edema (Chronic) Surgical History H/O colectomy (Chronic) "2007 - due to motility issues subtotal colectomy with ileorectal anastomosis " H/O: (Resolved) Hx of tonsillectomy (Resolved) Family History Other Colon cancer Multiple sclerosis Ovarian cancer Thyroid disorder Social History Current Living Situation: Spouse Other Information That Helps Us Care for You: No Feels Safe at Home: Yes Safety Concerns: Feels Safe At This Time Smoking Status: Never smoker Do You Dip or Chew Tobacco: No Second Hand Exposure: No Tobacco Cessation Education Requested by Patient: No Hx Alcohol Use: Yes Alcohol Intake Frequency: holidays/special occasions only Hx Substance Use: No Beliefs That Will Affect Care: None Communication Ability: Effective Liquor Department Manager Required: No Review of Systems Constitutional: no fever, no chills and no sweats Respiratory: no cough and no dyspnea Gastrointestinal: + abdominal pain, + belching, + bloating, + nausea and + vomiting; no blood in stools and no melena Physical Exam 2 Vital Signs (Past 24 Hours): Last Vital Signs Pulse 80 08/06/18 12:12 Resp 18 08/06/18 12:12 BP 105/78 08/06/18 12:12 Pulse Ox 95 08/06/18 12:12 Constitutional: WD/WN, vitals as above no acute distress Neck: normal visual inspection and trachea midline Respiratory: normal respiratory effort, lungs clear to auscultation no respiratory distress, no labored breathing, no retractions and does not use accessory muscles Cardiovascular: RRR, no murmur, no edema Gastrointestinal (Abdomen): Inspection/Auscultation: abdomen normal to inspection and + hyperactive bowel sounds; abdomen not distended Percussion/ Palpation: abdomen soft; abdomen nontender, no guarding and abdomen not rigid Skin: no rashes, warm and dry Psychiatric: A+Ox3, euthymic affect Results & Data Laboratory Results 08/06/18 08/06/18 Range/Units 08:45 08:45 WBC 11.83 H (4.8-10.8) K/uL RBC 5.00 (4.2-5.4) M/uL Hgb 15.9 (12.0-16.0) g/dL Hct 47.3 H (37-47) % MCV 94.6 (80-100) fL MCH 31.8 (25-34) pg MCHC 33.6 (32-36) g/dL RDW Std Deviation 45.7 (36.4-46.3) fL RDW Coeff of Any 13.2 (11.5-14.5) % Plt Count 375 (130-400) K/uL MPV 10.1 (7.4-10.4) fL Immature Gran % (Auto) 0.2 % Neut % (Auto) 89.3 % Lymph % (Auto) 5.7 % [place] % (Auto) 4.1 % Eos % (Auto) 0.4 % Baso % (Auto) 0.3 % Immature Gran # (Auto) 0.02 (0.00-0.02) K/uL Neut # (Auto) 10.56 H (1.4-6.5) K/uL Lymph # (Auto) 0.68 L (1.2-3.4) K/uL [place] # (Auto) 0.49 (0.11-0.59) K/uL Eos # (Auto) 0.05 (0-0.5) K/uL Baso # (Auto) 0.03 (0-0.2) K/uL Sodium 134 L (136-145) mmol/L Potassium 3.9 (3.5-5.1) mmol/L Chloride 95 L (98-107) mmol/L Carbon Dioxide 31 (21-32) mmol/L Anion Gap 8.0 (3-11) BUN 22 H (7-18) mg/dl Creatinine 1.18 (0.6-1.2) mg/dl Est Cr Clr Drug Dosing 45.9 ml/min Est GFR ( Amer) 65.0 Est GFR (Non-Af Amer) 56.0 BUN/Creatinine Ratio 18.5 (10-20) Glucose 122 H (70-99) mg/dl Calcium 10.5 H (8.5-10.1) mg/dl Total Bilirubin 0.5 (0.2-1) mg/dl AST 46 H (15-37) U/L ALT 50 (12-78) U/L Alkaline Phosphatase 64 (45-117) U/L Total Protein 8.6 H (6.4-8.2) gm/dl Albumin 5.2 H (3.4-5.0) gm/dl Globulin 3.4 (2.5-4.0) gm/dl Albumin/Globulin Ratio 1.5 (0.9-2) Lipase 71 L (73-393) U/L Diagnostic Findings PA CHEST RADIOGRAPH AND UPRIGHT AND SUPINE AP RADIOGRAPHS OF THE ABDOMEN CLINICAL HISTORY: ABD pain/N/V, h/o SBO, colectomy. COMPARISON STUDY: Chest radiograph and abdominal series February 04, 2017. FINDINGS: Lung volumes are normal. There is no pneumothorax or pleural effusion. There is no evidence for pulmonary edema or pneumonia. Cardiac size is normal. Mediastinal contours are normal. There may be bilateral breast implants. There is no free air. Several loops of moderately dilated small bowel measure up to 5 cm in caliber. Pelvic calcifications likely reflect phleboliths. IMPRESSION: 1. No free air. 2. Moderate small bowel dilatation highly suggestive of a small bowel obstruction. 3. No acute cardiopulmonary findings.
[2018-08-06] MEDS ORDERED: LORazepam 0.5 MG/1 ML VIAL IV PRN (12:50)
[2018-08-06] MEDS: MoRPHine SULFATE 2 MG/ML CARP IV PRN ×2 (13:06→20:57)
[2018-08-06] MEDS: SODIUM CHLORIDE 0.9% 1000ML 1,000 ML IV SCH ×2 (13:07→21:24)
[2018-08-06] MEDS: ACETAMINOPHEN 65 ML IV SCH ×2 (14:07→21:28)
[2018-08-06 19:16] LABS: Appearance Urine Clear (Clear); Bilirubin Urine Negative (Negative); Color Urine Dark Yellow; Glucose Urine UA Negative (Negative); Ketones Urine Trace (Negative); Leukocyte Esterase Urine Negative (Negative); Nitrite Urine Negative (Negative); Protein Urine Negative (Negative); Specific Gravity Urine 1.036 (1.000-1.030); Urobilinogen Urine Negative (Negative)
[2018-08-06] MEDS: ONDANSETRON INJ 2 MG/ML 2 ML VIAL IV PRN (22:25)
[2018-08-06] MEDS ORDERED: DiphenhydrAMINE HCL 50 MG/ML VIAL IV STA (22:35)
[2018-08-07] MEDS: MoRPHine SULFATE 2 MG/ML CARP IV PRN ×3 (00:17→09:05)
[2018-08-07] MEDS ORDERED: DiphenhydrAMINE HCL 50 MG/ML VIAL IV STA (04:21)
[2018-08-07] MEDS: ACETAMINOPHEN 65 ML IV SCH (05:53)
[2018-08-07] MEDS: SODIUM CHLORIDE 0.9% 1000ML 1,000 ML IV SCH ×2 (05:53→13:43)
[2018-08-07 08:02] LABS: Hematocrit (blood only) 40.4 % (37-47); Hemoglobin 13.5 g/dL (12.0-16.0); Mean Corpuscular Hgb Conc 33.4 g/dL (32-36); Mean Corpuscular Volume 94.6 fL (80-100); Mean Platelet Volume 9.6 fL (7.4-10.4); Platelet Count 288 K/uL (130-400); RDW Coefficient of Variation 12.9 % (11.5-14.5); RDW Standard Deviation 44.6 fL (36.4-46.3); Red Blood Count 4.27 M/uL (4.2-5.4); White Blood Count 4.98 K/uL (4.8-10.8)
[2018-08-07 08:24] LABS: BUN Creatinine Ratio 18.4 (10-20); Calcium 7.6 mg/dl (8.5-10.1); Creatinine Clr Calc Pharmacy 55.8 ml/min; Est GFR (African American) 82.3
--- NOTE | 2018-08-07 08:47 | XRay Report ---
KUB CLINICAL HISTORY: Small bowel obstruction. COMPARISON STUDY: Abdominal series August 06, 2018. FINDINGS: There are multiple loops of moderately dilated small bowel. Gaseous distention is similar t o previous exam. No free air is identified on this supine exam. IMPRESSION: No significant change in small bowel dilatation which suggests a persistent small bowel obstruction. Electronically signed by: Jonnathan Goldman M.D. 08/07/2018 8:46 AM
[2018-08-07] MEDS ORDERED: LEVOTHYROXINE SODIUM 56 MCG in SYRINGE 0 ML IV SCH (09:00)
[2018-08-07] MEDS: ONDANSETRON INJ 2 MG/ML 2 ML VIAL IV PRN (09:06)
[2018-08-07 11:12] LABS: Albumin Level 3.5 gm/dl (3.4-5.0); BUN Creatinine Ratio 16.5 (10-20); Calcium 7.7 mg/dl (8.5-10.1); Creatinine Clr Calc Pharmacy 59.5 ml/min; Est GFR (African American) 88.9; Est GFR (Non-African American) 76.7; Phosphorus 2.6 mg/dl (2.5-4.9); Potassium 3.8 mmol/L (3.5-5.1)
--- NOTE | 2018-08-07 11:35 | Surgery Progress Note ---
Date of Service August 07, 2018 doing better, passed gas and BM, no nausea, no vomiting, Assessment & Plan (1) Small bowel obstruction: 43 year-old with recurrent SBO with surgical history of total abdominal colectomy and exploratory laparotomy in 2007. No acute abdominal findings, nontender, mild leukocytosis, afebrile, vss. KUB showing dilated loops of small bowel up to 5 cm. Plan: No acute surgical intervention required. Recommend conservative treatment with IV fluids, NPO for bowel rest, IV pain medication as needed, IV Zofran as needed for nausea or vomiting. Low threshold for NGT , if vomiting occurs would recommend placement OOB to chair and ambulate to aid in GI motility Continue medical management will follow Dr. Emanuel has seen and examined pt, agrees with above. 08/07/2018 11:34am doing better, passed gas and BM, full liquid diet will F/U Subjective Gastrointestinal: + abdominal pain, + belching, + bloating, + nausea and + vomiting; no blood in stools and no melena Physical Exam 2 Vital Signs (Past 24 Hours): Last Vital Signs Temp 36.8 C 08/07/18 07:30 Pulse 84 08/07/18 07:30 Resp 15 08/07/18 07:30 BP 104/67 08/07/18 07:30 Pulse Ox 97 08/07/18 07:30 Constitutional: WD/WN, vitals as above Neck: trachea midline, no thyromegaly Respiratory: normal respiratory effort, lungs clear to auscultation Cardiovascular: RRR, no murmur, no edema Gastrointestinal (Abdomen): Percussion/Palpation: abdomen soft no tenderness, no distend, BS + Neurologic: awake Psychiatric: Orientation: alert and oriented x 3 Results & Data Laboratory Results Abnormal lab results 08/06/18 08/07/18 08/07/18 Range/Units 18:00 07:22 10:35 Sodium 132 L 133 L (136-145) mmol/L Glucose 140 H 106 H (70-99) mg/dl Calcium 7.6 L D 7.7 L (8.5-10.1) mg/dl Ionized Calcium (1.12-1.32) mmol/L Ur Specific [place] 1.036 H (1.000-1.030) Urine Ketones Trace H (Negative) 08/07/18 Range/Units 10:35 Sodium (136-145) mmol/L Glucose (70-99) mg/dl Calcium (8.5-10.1) mg/dl Ionized Calcium 1.08 L (1.12-1.32) mmol/L Ur Specific [place] (1.000-1.030) Urine Ketones (Negative)
[2018-08-07] MEDS ORDERED: CALCIUM 600MG + VIT D 400 IU TAB PO SCH (12:00)
--- NOTE | 2018-08-17 10:51 | Discharge Summary ---
Date of Service August 17, 2018 Admission HPI Per Admitting Provider Pt is 43 y/o F with PMH hypothyroidism, anxiety, ADHD, GERD, PCOS, IBS, chronic constipation, total colectomy with proctoileostomy 2007 and reversal secondary to dysfunctional bowel, h/o emergent lysis of adhesions in 2008, history of recurrent SBO's presented to ER with complaint of abdominal pain x 1 day. Patient states yesterday started with periumbilical abdominal pain that is nonradiating. Also complains of nausea and vomiting 15 times. Last episode of vomiting upon ER arrival. Had BM last night which was watery which she reports chronic watery stools. Reports tried to eat eggs yesterday. Last hospitalization secondary to small bowel obstruction in 2015 with no surgical intervention required. Denies fever/chills, diaphoresis, hematemesis, hematochezia, melena, HAIRSTON, dizziness, syncope, vision changes, neck pain, CP, SOB , orthopnea, palpitations, cough, sore throat, choking, otalgia, rhinorrhea, paresthesias, weakness, extremity weakness, extremity edema, rashes, urinary symptoms. Admission Exam Per Admitting Provider General: no distress, WDWN Head: normocephalic, atraumatic Eyes: PERRL, EOM's intact, conjunctiva non-injected, anicteric ENT: normal inspection external ears, nose, mucous membranes moist Neck: supple, trachea midline, non-tender Lungs: clear, no respiratory distress, no wheezing/rhonchi/rales CV: RRR, no murmur, no pretibial edema Abd: normal BS, soft, mild tenderness to palpation periumbilical Ext: no cyanosis, no calf tenderness Neuro: A&O x 3, no focal deficits noted, normal affect Skin: warm, dry Principal Diagnosis SBO Discharge Exam General: no distress, WDWN Head: normocephalic, atraumatic Eyes: PERRL, EOM's intact, conjunctiva non-injected, anicteric ENT: normal inspection external ears, nose, mucous membranes moist Neck: supple, trachea midline, non-tender Lungs: clear, no respiratory distress, no wheezing/rhonchi/rales CV: RRR, no murmur, no pretibial edema Abd: normal BS, soft, nontender, nondistended Ext: no cyanosis, no calf tenderness Neuro: A&O x 3, no focal deficits noted, normal affect Skin: warm, dry Discharge Data Allergies Allergy/AdvReac Type Severity Reaction Status Date / Time lamotrigine Allergy Mild RASH Verified 08/06/18 08:42 metoclopramide Allergy Mild gittery Verified 08/06/18 08:42 Sulfa (Sulfonamide Allergy Mild RASH Verified 08/06/18 08:42 Antibiotics) Flu Virus Vaccine Allergy Unknown UNKNOWN - Uncoded 08/06/18 08:42 episodes of sickness/ passing out Consultations 08/06/18 10:50 ED Decision to Admit Stat 08/06/18 12:50 Consult General Surgery Routine Hospital Course (1) Small bowel obstruction: (2) IBS (irritable bowel syndrome): The patient is a 43-year-old female who was admitted for small bowel obstruction. On arrival to the ER she was hemodynamically stable and afebrile oxygenating well on room air. Bowel sounds were present in all quadrants with mild tenderness palpation of the abdomen without obvious rigidity guarding or rebound. She was hydrated with a normal liter of normal saline and was given IV Dilaudid and Zofran for pain and nausea, respectively. Labs revealed a mild leukocytosis and electrolytes were otherwise unremarkable. BUN was mildly elevated at 22 with a normal creatinine and abdominal obstruction series with PA chest view was consistent with a small bowel obstruction. She was admitted to the hospitalist service. She notably had a history of IBS, chronic constipation, total colectomy with procto-ileostomy and reversal secondary to dysfunctional bowel. She had a history of emergent lysis of adhesions in 2008 and a history of recurrent SBO's. An NG tube ultimately was not needed. Surgically was consulted and follow the hospital course. She continued to improve overnight and was tolerating food the following day. On hospital day 2 she was also notably doing better clinically, passing gas and had a bowel movement. After reliably tolerating lunch she decided to home. It was advised initially that she might wait for at least one more meal in the setting of extensive history of obstructions in the past, however, the patient wanted to head home. She was medically stable at discharge it was recommended to follow- up with her primary care doctor within 1 week Total Time Total Time Spent Total Time Spent (In Minutes): 60 Total Time Includes: Examination of the Patient, Discharge Planning, Medication Reconciliation and Communication With Other Providers Discharge Plan Discharge Items Patient Disposition: Home - Self-Care Reason For Visit: SBO Discharge Diagnosis: SBO Condition: Good Discharge Goals: Decrease discomfort Activity: Resume your previous activity Non-emergency contact: Primary Care Provider Call non-emergency contact if: you have any medication questions, your symptoms worsen, your pain is not controlled and you have a fever Diet: Regular Addtl Provider Instructions: Please continue all medications as instructed on discharge summary below. It is recommended that you follow-up with your primary care physician within 1 week of discharge. Your calcium was low, and replacement was ordered for you. Please discuss continuation of supplements with your primary care physician on follow-up. It was a pleasure taking care of you! Please call if you have any questions or problems. You can reach a [facility] hospitalist on duty at [facility] 24 hours a day by calling [phone]. Take care of yourself. Jennie Mejía, DO [facility] Hospitalist Prescriptions: New calcium carbonate-vit D3-min [Calcium 600 + Minerals] 600 mg calcium- 400 unit tablet 1 tab PO BID Qty: 30 RF: 0 Continue bupropion HCl 150 mg tablet sustained-release 12 hr 150 mg PO BID RF: 0 spironolactone 100 mg tablet 100 mg PO BID RF: 0 citalopram 20 mg tablet 20 mg PO DAILY RF: 0 pantoprazole 40 mg tablet,delayed release (DR/EC) 40 mg PO DAILY RF: 0 cyanocobalamin (vitamin B-12) 1,000 mcg/mL solution 1 dose IM DIRECTED RF: 0 dextroamphetamine-amphetamine 15 mg tablet 15 mg PO BID RF: 0 lorazepam 1 mg tablet 1 mg PO DAILY PRN (Reason: Anxiety) RF: 0 levothyroxine 112 mcg tablet 112 mcg PO DAILY RF: 0 cyclobenzaprine 5 mg tablet 5 mg PO DAILY RF: 0 linaclotide 290 mcg capsule 290 mcg PO DAILY RF: 0 multivitamin Tablet 1 tab PO DAILY RF: 0 trazodone 50 mg Tablet 50 mg PO PM PRN (Reason: Insomnia) RF: 0 magnesium hydroxide [Milk of Magnesia] 400 mg/5 mL Suspension 15 ml PO DAILY RF: 0 ondansetron 4 mg Tablet,Disintegrating 4 mg PO TID PRN (Reason: Nausea) RF: 0 Visit Report Forms: [facility] Stand-Alone Forms: [facility] Discharge Orders: Discharge Order (Routine); Ordered 08/07/18 Ordered By: Jennie Mejía Admission Data Admit Date/Time: 08/06/18 11:43 Attending Provider: Jennie Mejía Admit Provider: Jennie Mejía Primary Care Provider: Rosmery Solomon Other Providers: Jorje Emanuel Service: Medical Other Interventions: Discharge Summary Assessment (RN) Last Done: 08/07/18 13:40 DC Date/Time DO NOT enter until pt leaves facility: 08/07/18 14:02
== END 2018-08-07 14:02 | disposition home or self-care (01) | DRG 389 ==
LOC: ED 08:27 → 3W 11:43
DX: Z88.8 Allergy status to other drugs, medicaments and biological substances; Z83.49 Family history of other endocrine, nutritional and metabolic diseases; Z87.19 Personal history of other diseases of the digestive system; K58.1 Irritable bowel syndrome with constipation; R60.0 Localized edema; F90.9 Attention-deficit hyperactivity disorder, unspecified type; E87.1 Hypo-osmolality and hyponatremia; Z88.7 Allergy status to serum and vaccine; Z90.49 Acquired absence of other specified parts of digestive tract; Z82.0 Family history of epilepsy and other diseases of the nervous system; F41.9 Anxiety disorder, unspecified; Z79.899 Other long term (current) drug therapy; K21.9 Gastro-esophageal reflux disease without esophagitis; Z88.2 Allergy status to sulfonamides; Z80.41 Family history of malignant neoplasm of ovary; Z80.0 Family history of malignant neoplasm of digestive organs; K56.609 Unspecified intestinal obstruction, unspecified as to partial versus complete obstruction; E03.9 Hypothyroidism, unspecified

== ENCOUNTER 2021-09-19 20:55 | Inpatient (IN) ==
[2021-09-19] MEDS ORDERED: ONDANSETRON INJ 2 MG/ML 2 ML VIAL IV STA ×2 (21:25→23:22)
[2021-09-19] MEDS ORDERED: SODIUM CHLORIDE 0.9% 1000ML 1,000 ML IV ONE (21:25)
[2021-09-19] MEDS ORDERED: HYDROmorphone INJ 1 MG/ML SYRINGE IV STA ×2 (21:25→23:22)
--- NOTE | 2021-09-19 21:29 | Emergency Department Note ---
Impression & Plan Partial small bowel obstruction, Intractable abdominal pain, Intractable vomiting ED Provider Note Name: LISA BAKER Age: 46 Sex: F Arrives Via: Walk-In Informant: Patient ED Provider: Blake Balderas MD Chief Complaint: Abdominal Pain Impression: As per impressions above Medical Decision Makin-year-old female arrives for evaluation of epigastric abdominal pain and intractable vomiting. Patient with a long history of abdominal issues following a colectomy and multiple small bowel obstructions since in the last 15 years. She has had recurrent obstructions and several surgeries. She notes 12 hours of pain and vomiting today with small bowel else and did have some gas earlier in the day. On examination she has hyperactive bowel sounds over the epigastrium and right upper quadrant with mild tenderness to palpation. She does not appear to have peritonitis at this time. Labs are essentially unremarkable. CT with questionable partial small bowel obstruction versus gastroenteritis/ileus. Given the continued pain and nausea it was felt to treat this as his partial small bowel obstruction is indicated. NG tube was placed. Given the symptoms and findings I discussed monitoring the patient in the hospital and she is comfortable with this plan. Hospitalist was consulted for further management. Following CT patient did have diffuse hives develop though no swelling of face. She had received some pain medications earlier in the night as well. She was given IV Benadryl but given the continued pain she was also given some further IV Dilaudid. I will note that following this the rash resolved and she looks much improved. Patient did not have any evidence of anaphylaxis during this time. I do not feel the symptoms are consistent with ischemic gut at this time and with a normal CT with contrast I think it is less likely that that is the case. Given her history it is likely that this should resolve with decompression and bowel rest. We will hold off on general surgery consult at this time as I do not see any clear indication for emergent surgical intervention. Of note, patient had stated some left lateral chest pain last evening. Seems MSK and was after exercising/lifting. With EKG unremarkable and Trop negative at this point seems unlikely ACS and not consistent with PE. Prior Medical Record and Triage/Nursing Notes reviewed by Me Additional history obtained from Differentials: Bowel obstruction, partial bowel obstruction, gastroenteritis, ischemic gut, pancreatitis, ACS, biliary dysfunction, liver issue, amongst other pathologies. Vital Signs: reviewed and remarkable for no significant abnormalities Interventions: dilaudid 1mg iv x 2, zofran 4mg iv x 2, benadryl 50mg iv, nss bolus, ng tube Labs:Reviewed and remarkable for no significant abnormalities Imaging:CT imaging of abdomen pelvis with IV contrast radiology reads a partial small bowel obstruction versus ileus versus gastroenteritis EKG:Per My Interpretation: Indication Chest pain last evening: Sinus Vinicio 55 bpm, qtc 401. No Ectopy. No Ischemia. Compared to EKG 02/04/17, no significant changes other than rate has decreased Cardiac/Tele Monitoring: Cardiac Monitoring: An Order was placed for continuous cardiac monitoring. The monitor shows a rate of 60 with a normal sinus rhythm. Consults:Dr Jaylene Barlow hospitalist Plan: Disposition:Hospitalization. Condition: Good History of Present Illness:46-year-old female arrives for evaluation of abdominal pain. Patient notes she awoke around 4 AM this morning with worsening epigastric pain. It radiates to her back and the rest of her abdomen. Associated with multiple rounds of vomiting. She had a small bowel movement earlier today and has passed gas a few times. She notes an episode of left upper chest pain yesterday which she related to lifting too heavily. Currently she notes severe pain. She does not have improvement after taking Tylenol, Motrin or Zofran. Movement makes worse and resting seems to make slightly better. She has no falls, trauma, injuries. 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 This is been complicated by small bowel obstructions as well as issues with scar tissue. She does believe that her gallbladder was removed during one of her surgeries. Patient denies any current chest pain, shortness of breath, fevers, chills, syncope, headache, leg swelling, rashes, bruising, bleeding, blood in vomit, other symptoms. ROS: See above HPI for pertinent positives & negatives. A total of 10 systems reviewed and were otherwise negative. Past Medical History:See Below Past Surgical History:See Below Family History:See Below Social History:See Below Home Medications:See Below Allergies:See Below Vitals:Blood Pressure: 128/80, Pulse 70, RR 18, T 36.5C, O2 100% on RA Physical Exam: GENERAL: Patient is very uncomfortable appearing and in moderate distress. EYES: No scleral icterus, unremarkable pupils. ENT: Mucous membranes moist, no nasal congestion. NECK: No masses appreciated, nomeningismus, trachea is midline. RESPIRATORY: No dyspnea. Clear to auscultation and equal bilaterally. No wheeze, no rhonchi. CARDIOVASCULAR: Regular rate and rhythm.No murmurs, rubs, gallops appreciated. GASTROINTESTINAL: Hyperactive bowel sounds with moderate TTP upper abdomen. BACK: No midline tenderness, no CVA tenderness EXTREMITIES: Normal motion all extremities, no cyanosis, no edema. NEUROLOGIC: Alert and oriented, no acute motor or sensory deficits, no focal weakness, cranial nerves grossly intact. SKIN: No rash, no jaundice, no diaphoresis. PSYCH: Appropriate GCS: 15 ED Course: Times/Reassessments: Patient improved with pain medications though did have recurrence of pain requiring further. She is agreeable to attempt at NG tube. She is agreeable to hospitalization. Blake Balderas MD Past Med/Surg History Medical History ADHD (attention deficit hyperactivity disorder) Anxiety Chronic constipation GERD (gastroesophageal reflux disease) Hypothyroidism IBS (irritable bowel syndrome) PCOS (polycystic ovarian syndrome) SBO (small bowel obstruction) "2008, 2011, 2012" On 04/29/16 12:28 Manasa Gina wrote "2008. 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 02/18/09 Dr. Hurt for SBO H/O: Hx of breast augmentation (09/13/17) dual plane 3; Natrelle Inspira SSX 375 cc Hx of tonsillectomy S/P scar revision (06/27/17) revision midline abdominal scar Family History Grandmother (Paternal) Cancer Stroke Grandfather (Paternal) Diabetes Heart disease Other Colon cancer Multiple sclerosis Ovarian cancer Thyroid disorder Social History Smoking Status: Never smoker Second Hand Exposure: No; Hx Alcohol Use: Yes Alcohol type: wine Alcohol Intake Frequency: 2-4 x/Month Hx Substance Use: No Preferred Language: Bahamian Communication Ability: Effective Bobtailer Required: No Beliefs That Will Affect Care: None marital status: Current Living Situation: Spouse current occupational status: employed How many Children do You have: 3 Feels Safe at Home: Yes during the past year weight has: remained stable Assistive Devices: None Allergies Allergies Allergy/AdvReac Type Severity Reaction Status Date / Time influenza virus vaccine, Allergy Intermediate UNKNOWN - Verified 09/19/21 21:47 specific episodes of sickness/ passing out Iodinated Contrast Media Allergy Intermediate Hives Verified 09/20/21 02:26 Sulfa (Sulfonamide Allergy Intermediate RASH Verified 09/19/21 21:47 Antibiotics) lamotrigine Allergy Mild RASH Verified 09/19/21 21:47 metoclopramide Allergy Mild gittery Verified 09/19/21 21:47 oxycodone AdvReac Unknown Unknown - Verified 09/19/21 21:47 PERCOCET Home Meds Home Medications Medication Instructions Recorded Confirmed bupropion HCl 150 mg tablet,12 hr 150 mg PO BID 08/06/18 09/19/21 sustained-release dextroamphetamine-amphetamine 15 15 mg PO BID 08/06/18 09/19/21 mg tablet levothyroxine 112 mcg tablet 112 mcg PO DAILYBB 08/06/18 09/19/21 linaclotide 290 mcg capsule 290 mcg PO QAM 08/06/18 09/19/21 multivitamin 1 tab PO QAM 08/06/18 09/19/21 spironolactone 100 mg tablet 100 mg PO BID 08/06/18 09/19/21 buspirone 15 mg tablet 15 mg PO BID 09/19/21 09/19/21 cyanocobalamin (vitamin B-12) 1,000 mcg IM .Q2W 09/19/21 09/19/21 1,000 mcg/mL injection solution epinephrine 0.3 mg/0.3 mL 0.3 mg IM UD 09/19/21 09/19/21 injection, auto-injector hydroxyzine HCl 25 mg tablet 25 mg PO QID PRN 09/19/21 09/19/21 Results & Data (ED) Vital Signs Vital Signs - 24 hr 09/19/21 21:03 09/19/21 21:45 09/19/21 22:57 Temperature 36.5 C Temperature Source Temporal Artery Scan Pulse Rate 70 Pulse Rate [Apical] 84 58 L Pulse Rhythm [Apical] Pulse Strength [Apical] Respiratory Rate 18 20 20 Respiratory Effort / Characteristics Non-Labored Spontaneous Non-Labored Spontaneous Respiratory Depth Normal Normal Respiratory Pattern Regular Regular Blood Pressure 128/80 Blood Pressure [Right Arm] 126/74 126/74 Blood Pressure Mean 96 Blood Pressure Mean [Right Arm] 91 91 Blood Pressure Position Sitting Blood Pressure Position [Right Arm] Sitting Sitting Pulse Oximetry 100 97 97 Oxygen Delivery Method Room Air Room Air Sepsis Recent Fever Within 48 Hours No Sepsis New/Unexplained Change in Mental Status N/A Sepsis Action Taken by Nursing No Action Required 09/20/21 00:00 Temperature Temperature Source Pulse Rate Pulse Rate [Apical] 80 Pulse Rhythm [Apical] Regular Pulse Strength [Apical] Normal Respiratory Rate 18 Respiratory Effort / Characteristics Non-Labored Spontaneous Respiratory Depth Normal Respiratory Pattern Regular Blood Pressure Blood Pressure [Right Arm] 126/71 Blood Pressure Mean Blood Pressure Mean [Right Arm] 89 Blood Pressure Position Blood Pressure Position [Right Arm] Sitting Pulse Oximetry 97 Oxygen Delivery Method Room Air Sepsis Recent Fever Within 48 Hours Sepsis New/Unexplained Change in Mental Status Sepsis Action Taken by Nursing Laboratory Data Result diagrams: 09/20/21 04:44 09/20/21 04:45 Lab Results 09/19/21 09/19/21 09/19/21 Range/Units 21:51 21:51 21:51 WBC 12.48 H (4.8-10.8) K/uL RBC 4.96 (4.2-5.4) M/uL Hgb 15.1 (12.0-16.0) g/dL Hct 45.5 (37-47) % MCV 91.7 (80-100) fL MCH 30.4 (25-34) pg MCHC 33.2 (32-36) g/dL RDW Std Deviation 42.3 (36.4-46.3) fL RDW Coeff of Any 12.6 (11.5-14.5) % Plt Count 361 (130-400) K/uL MPV 9.5 (7.4-10.4) fL Immature Gran % (Auto) 0.2 % Neut % (Auto) 86.7 % Lymph % (Auto) 6.1 % [place] % (Auto) 6.3 % Eos % (Auto) 0.4 % Baso % (Auto) 0.3 % Neut # (Auto) 10.83 H (1.4-6.5) K/uL Lymph # (Auto) 0.76 L (1.2-3.4) K/uL [place] # (Auto) 0.78 H (0.11-0.59) K/uL Eos # (Auto) 0.05 (0-0.5) K/uL Baso # (Auto) 0.04 (0-0.2) K/uL Immature Gran # (Auto) 0.02 (0.00-0.02) K/uL APTT (21.0-31.0) Seconds PTT Ratio Sodium 134 L (136-145) mmol/L Potassium 4.0 (3.5-5.1) mmol/L Chloride 100 (98-107) mmol/L Carbon Dioxide 26 (21-32) mmol/L Anion Gap 8 (3-11) BUN 15 (6-23) mg/dl Creatinine 0.95 (0.6-1.2) mg/dl Est Cr Clr Drug Dosing 55.2 ml/min Est GFR ( Amer) 82.7 ml/min Est GFR (Non-Af Amer) 71.3 ml/min BUN/Creatinine Ratio 15.8 (10-20) Glucose 155 H (70-99(Fasting)) mg/dl Estimat Average Glucose mg/dl Hemoglobin A1c (4.5-5.6) % Calcium 11.4 H (8.5-10.1) mg/dl Phosphorus (2.5-4.9) mg/dl Total Bilirubin 0.4 (0.2-1.0) mg/dl Direct Bilirubin 0.0 (0-0.2) mg/dl AST 36 (13-39) U/L ALT 42 (7-52) U/L Alkaline Phosphatase 57 (34-104) U/L Troponin I < 0.03 (0-0.04) ng/ml Total Protein 7.1 (6.0-8.3) gm/dl Albumin 4.8 (3.4-5.0) gm/dl Lipase 8 L (11-82) U/L TSH (0.300-4.500) uIu/ml HCG, Qual Negative (Negative) PTH Intact (12.0-88.0) pg/ml Urine Color Urine Appearance (Clear) Urine pH (4.5-7.5) Ur Specific [place] (1.000-1.030) Urine Protein (Negative) Urine Glucose (UA) (Negative) Urine Ketones (Negative) Urine Blood (Negative) Urine Nitrite (Negative) Urine Bilirubin (Negative) Urine Urobilinogen (Negative) Ur Leukocyte Esterase (Negative) SARS-CoV-2 (PCR) (Negative) Influenza Type A (PCR) (Neg) Influenza Type B (PCR) (Neg) RSV (RT-PCR) (Neg) 09/19/21 09/19/21 09/19/21 Range/Units 21:51 21:51 21:51 WBC (4.8-10.8) K/uL RBC (4.2-5.4) M/uL Hgb (12.0-16.0) g/dL Hct (37-47) % MCV (80-100) fL MCH (25-34) pg MCHC (32-36) g/dL RDW Std Deviation (36.4-46.3) fL RDW Coeff of Any (11.5-14.5) % Plt Count (130-400) K/uL MPV (7.4-10.4) fL Immature Gran % (Auto) % Neut % (Auto) % Lymph % (Auto) % [place] % (Auto) % Eos % (Auto) % Baso % (Auto) % Neut # (Auto) (1.4-6.5) K/uL Lymph # (Auto) (1.2-3.4) K/uL [place] # (Auto) (0.11-0.59) K/uL Eos # (Auto) (0-0.5) K/uL Baso # (Auto) (0-0.2) K/uL Immature Gran # (Auto) (0.00-0.02) K/uL APTT 22.6 (21.0-31.0) Seconds PTT Ratio 0.9 Sodium (136-145) mmol/L Potassium (3.5-5.1) mmol/L Chloride (98-107) mmol/L Carbon Dioxide (21-32) mmol/L Anion Gap (3-11) BUN (6-23) mg/dl Creatinine (0.6-1.2) mg/dl Est Cr Clr Drug Dosing ml/min Est GFR ( Amer) ml/min Est GFR (Non-Af Amer) ml/min BUN/Creatinine Ratio (10-20) Glucose (70-99(Fasting)) mg/dl Estimat Average Glucose 120 mg/dl Hemoglobin A1c 5.8 H (4.5-5.6) % Calcium (8.5-10.1) mg/dl Phosphorus (2.5-4.9) mg/dl Total Bilirubin (0.2-1.0) mg/dl Direct Bilirubin (0-0.2) mg/dl AST (13-39) U/L ALT (7-52) U/L Alkaline Phosphatase (34-104) U/L Troponin I (0-0.04) ng/ml Total Protein (6.0-8.3) gm/dl Albumin (3.4-5.0) gm/dl Lipase (11-82) U/L TSH (0.300-4.500) uIu/ml HCG, Qual (Negative) PTH Intact (12.0-88.0) pg/ml Urine Color Yellow Urine Appearance Clear (Clear) Urine pH 5.0 (4.5-7.5) Ur Specific [place] 1.036 H (1.000-1.030) Urine Protein Negative (Negative) Urine Glucose (UA) Negative (Negative) Urine Ketones Negative (Negative) Urine Blood Negative (Negative) Urine Nitrite Negative (Negative) Urine Bilirubin Negative (Negative) Urine Urobilinogen Negative (Negative) Ur Leukocyte Esterase Negative (Negative) SARS-CoV-2 (PCR) (Negative) Influenza Type A (PCR) (Neg) Influenza Type B (PCR) (Neg) RSV (RT-PCR) (Neg) 09/20/21 09/20/21 09/20/21 Range/Units 01:17 01:17 01:17 WBC (4.8-10.8) K/uL RBC (4.2-5.4) M/uL Hgb (12.0-16.0) g/dL Hct (37-47) % MCV (80-100) fL MCH (25-34) pg MCHC (32-36) g/dL RDW Std Deviation (36.4-46.3) fL RDW Coeff of Any (11.5-14.5) % Plt Count (130-400) K/uL MPV (7.4-10.4) fL Immature Gran % (Auto) % Neut % (Auto) % Lymph % (Auto) % [place] % (Auto) % Eos % (Auto) % Baso % (Auto) % Neut # (Auto) (1.4-6.5) K/uL Lymph # (Auto) (1.2-3.4) K/uL [place] # (Auto) (0.11-0.59) K/uL Eos # (Auto) (0-0.5) K/uL Baso # (Auto) (0-0.2) K/uL Immature Gran # (Auto) (0.00-0.02) K/uL APTT (21.0-31.0) Seconds PTT Ratio Sodium (136-145) mmol/L Potassium (3.5-5.1) mmol/L Chloride (98-107) mmol/L Carbon Dioxide (21-32) mmol/L Anion Gap (3-11) BUN (6-23) mg/dl Creatinine (0.6-1.2) mg/dl Est Cr Clr Drug Dosing ml/min Est GFR ( Amer) ml/min Est GFR (Non-Af Amer) ml/min BUN/Creatinine Ratio (10-20) Glucose (70-99(Fasting)) mg/dl Estimat Average Glucose mg/dl Hemoglobin A1c (4.5-5.6) % Calcium (8.5-10.1) mg/dl Phosphorus 4.2 (2.5-4.9) mg/dl Total Bilirubin (0.2-1.0) mg/dl Direct Bilirubin (0-0.2) mg/dl AST (13-39) U/L ALT (7-52) U/L Alkaline Phosphatase (34-104) U/L Troponin I (0-0.04) ng/ml Total Protein (6.0-8.3) gm/dl Albumin (3.4-5.0) gm/dl Lipase (11-82) U/L TSH 0.759 (0.300-4.500) uIu/ml HCG, Qual (Negative) PTH Intact 18.4 (12.0-88.0) pg/ml Urine Color Urine Appearance (Clear) Urine pH (4.5-7.5) Ur Specific [place] (1.000-1.030) Urine Protein (Negative) Urine Glucose (UA) (Negative) Urine Ketones (Negative) Urine Blood (Negative) Urine Nitrite (Negative) Urine Bilirubin (Negative) Urine Urobilinogen (Negative) Ur Leukocyte Esterase (Negative) SARS-CoV-2 (PCR) (Negative) Influenza Type A (PCR) (Neg) Influenza Type B (PCR) (Neg) RSV (RT-PCR) (Neg) 09/20/21 Range/Units 01:18 WBC (4.8-10.8) K/uL RBC (4.2-5.4) M/uL Hgb (12.0-16.0) g/dL Hct (37-47) % MCV (80-100) fL MCH (25-34) pg MCHC (32-36) g/dL RDW Std Deviation (36.4-46.3) fL RDW Coeff of Any (11.5-14.5) % Plt Count (130-400) K/uL MPV (7.4-10.4) fL Immature Gran % (Auto) % Neut % (Auto) % Lymph % (Auto) % [place] % (Auto) % Eos % (Auto) % Baso % (Auto) % Neut # (Auto) (1.4-6.5) K/uL Lymph # (Auto) (1.2-3.4) K/uL [place] # (Auto) (0.11-0.59) K/uL Eos # (Auto) (0-0.5) K/uL Baso # (Auto) (0-0.2) K/uL Immature Gran # (Auto) (0.00-0.02) K/uL APTT (21.0-31.0) Seconds PTT Ratio Sodium (136-145) mmol/L Potassium (3.5-5.1) mmol/L Chloride (98-107) mmol/L Carbon Dioxide (21-32) mmol/L Anion Gap (3-11) BUN (6-23) mg/dl Creatinine (0.6-1.2) mg/dl Est Cr Clr Drug Dosing ml/min Est GFR ( Amer) ml/min Est GFR (Non-Af Amer) ml/min BUN/Creatinine Ratio (10-20) Glucose (70-99(Fasting)) mg/dl Estimat Average Glucose mg/dl Hemoglobin A1c (4.5-5.6) % Calcium (8.5-10.1) mg/dl Phosphorus (2.5-4.9) mg/dl Total Bilirubin (0.2-1.0) mg/dl Direct Bilirubin (0-0.2) mg/dl AST (13-39) U/L ALT (7-52) U/L Alkaline Phosphatase (34-104) U/L Troponin I (0-0.04) ng/ml Total Protein (6.0-8.3) gm/dl Albumin (3.4-5.0) gm/dl Lipase (11-82) U/L TSH (0.300-4.500) uIu/ml HCG, Qual (Negative) PTH Intact (12.0-88.0) pg/ml Urine Color Urine Appearance (Clear) Urine pH (4.5-7.5) Ur Specific [place] (1.000-1.030) Urine Protein (Negative) Urine Glucose (UA) (Negative) Urine Ketones (Negative) Urine Blood (Negative) Urine Nitrite (Negative) Urine Bilirubin (Negative) Urine Urobilinogen (Negative) Ur Leukocyte Esterase (Negative) SARS-CoV-2 (PCR) NEGATIVE (Negative) Influenza Type A (PCR) Negative (Neg) Influenza Type B (PCR) Negative (Neg) RSV (RT-PCR) Negative (Neg) Administered Medications Amphetamine/Dextroamphetamine (Amphetamine Asp/Sulf/Dextramph 5 Mg Tab) 15 mg PO 0730,1400 [facility] Stop: 10/04/21 07:29 Last Admin: 09/20/21 07:12 Dose: Not Given Documented by: [id number] Bupropion HCl (Bupropion Sr 150 Mg Tabcr) 150 mg PO BID [facility] Stop: 10/20/21 08:59 Last Admin: 09/20/21 08:02 Dose: Not Given Documented by: [id number] Buspirone HCl (Buspirone 15 Mg Tab) 15 mg PO BID [facility] Stop: 10/20/21 08:59 Last Admin: 09/20/21 08:02 Dose: Not Given Documented by: [id number] Lorazepam (Ativan) 0.5 mg in 1 mls @ 1 mls/min IV Q4H PRN PRN Reason: Anxiety/Agitation Stop: 03/16/22 01:44 Last Admin: 09/20/21 02:58 Dose: 1 mls/min Documented by: [id number] Acetaminophen (Ofirmev) 1,000 mg in 100 mls @ 400 mls/hr IV Q8H PRN PRN Reason: pain/fever while ngt in Stop: 09/23/21 01:44 Last Infusion: 09/20/21 05:06 Dose: 0 mls/hr Documented by: [id number] Admin: 09/20/21 04:49 Dose: 400 mls/hr Documented by: [id number] Sodium Chloride (Nss 1000ml) 1,000 mls @ 100 mls/hr IV .Q10H [facility] Stop: 10/20/21 07:29 Last Admin: 09/20/21 07:35 Dose: 150 mls/hr Documented by: [id number] Ketorolac Tromethamine (Ketorolac Tromethamine 15 Mg/Ml Vial) 15 mg IV Q6H PRN PRN Reason: Pain Stop: 09/25/21 01:44 Last Admin: 09/20/21 02:58 Dose: 15 mg Documented by: [id number] Levothyroxine Sodium (Levothyroxine Sodium 112 Mcg Tablet) [facility]: 10/20/21 06:29 Last Admin: 09/20/21 06:03 Dose: Not Given Documented by: [id number] Linaclotide (Linaclotide 145 Mcg Capsule) [facility] Stop: 10/20/21 08:59 Last Admin: 09/20/21 08:02 Dose: Not Given Documented by: [id number] Multivitamins (Multivitamin Tab) 1 tab PO [facility] Stop: 10/20/21 08:59 Last Admin: 09/20/21 08:03 Dose: Not Given Documented by: [id number] Discontinued Medications Diphenhydramine HCl (Diphenhydramine 50 Mg/Ml Vial) 50 mg IV NOW STA Stop: 09/19/21 23:23 Last Admin: 09/19/21 23:28 Dose: 50 mg Documented by: [id number] Diphenhydramine HCl (Diphenhydramine 50 Mg/Ml Vial) 12.5 mg IV NOW STA Stop: 09/20/21 02:29 Last Admin: 09/20/21 03:08 Dose: Not Given Documented by: [id number] Diphenhydramine HCl (Diphenhydramine 50 Mg/Ml Vial) Confirm Administered Dose 50 mg .ROUTE .STK-MED ONE Stop: 09/20/21 02:31 Last Admin: 09/20/21 02:35 Dose: 12.5 mg Documented by: [id number] Hydromorphone HCl (Hydromorphone Inj 1 Mg/Ml Syringe) 1 mg IV NOW STA Stop: 09/19/21 21:26 Last Admin: 09/19/21 21:42 Dose: 1 mg Documented by: [id number] Hydromorphone HCl (Hydromorphone Inj 1 Mg/Ml Syringe) 1 mg IV NOW STA Stop: 09/19/21 23:23 Last Admin: 09/19/21 23:28 Dose: 1 mg Documented by: [id number] Sodium Chloride (Nss 1000ml) 1,000 mls @ 999 mls/hr IV .Q1H1M ONE Stop: 09/19/21 22:25 Last Infusion: 09/19/21 22:49 Dose: 0 mls/hr Documented by: [id number] Admin: 09/19/21 21:43 Dose: 999 mls/hr Documented by: [id number] Sodium Chloride (Nss 1000ml) 1,000 mls @ 999 mls/hr IV .Q1H1M STA Stop: 09/20/21 02:07 Last Infusion: 09/20/21 02:08 Dose: 0 mls/hr Documented by: [id number] Admin: 09/20/21 01:16 Dose: 999 mls/hr Documented by: [id number] Promethazine HCl 6.25 mg/ (Sodium Chloride) 50.25 mls @ 201 mls/hr IV NOW STA Stop: 09/20/21 01:55 Last Infusion: 09/20/21 02:45 Dose: 0 mls/hr Documented by: [id number] Admin: 09/20/21 02:22 Dose: 201 mls/hr Documented by: [id number] Sodium Chloride (Nss 1000ml) 1,000 mls @ 200 mls/hr IV .Q5H ONE Stop: 09/20/21 07:29 Last Infusion: 09/20/21 07:29 Dose: 0 mls/hr Documented by: [id number] Admin: 09/20/21 02:23 Dose: 200 mls/hr Documented by: [id number] Famotidine (Pepcid 20mg Iv Push) 20 mg in 5 mls @ 2.5 mls/min IV NOW STA Stop: 09/20/21 05:47 Last Admin: 09/20/21 06:01 Dose: 2.5 mls/min Documented by: [id number] Ioversol (Optiray 320 100ml) 90 ml IV ONCE ONE Stop: 09/19/21 22:50 Last Admin: 09/19/21 22:51 Dose: 90 ml Documented by: [id number] Ketorolac Tromethamine (Ketorolac Tromethamine 15 Mg/Ml Vial) 15 mg IV NOW ONE Stop: 09/20/21 05:33 Last Admin: 09/20/21 06:01 Dose: 15 mg Documented by: [id number] Ondansetron HCl (Ondansetron Inj 2 Mg/Ml 2 Ml Vial) 4 mg IV NOW STA Stop: 09/19/21 21:26 Last Admin: 09/19/21 21:42 Dose: 4 mg Documented by: [id number] Ondansetron HCl (Ondansetron Inj 2 Mg/Ml 2 Ml Vial) 4 mg IV NOW STA Stop: 09/19/21 23:23 Last Admin: 09/19/21 23:28 Dose: 4 mg Documented by: [id number] Promethazine HCl (Promethazine 12.5 Mg/50.5 Ml Nss) Confirm Administered Dose 12.5 mg IV .STK-MED ONE Stop: 09/20/21 02:08 Last Admin: 09/20/21 02:08 Dose: Not Given Documented by: [id number] Imaging Data Radiologist's Impression: Abdomen/Pelvis CT 09/19/21 21:25 CT abd pelvis IV con only CLINICAL HISTORY: upper abdominal pain, vomiting COMPARISON STUDY: 06/08/2021 CT DOSE: 252.14 mGy.cm TECHNIQUE: Standard CT of the Abdomen and Pelvis was performed with IV contrast. A dose lowering technique was utilized adhering to the principles of ALARA. Contrast Volume: Optiray 320, 90 ml. The patient did not receive oral contrast. FINDINGS: Lung base: The lung bases are clear. Abdominal cavity: There is no evidence for abdominal mass, adenopathy or ascites. Liver: There is homogeneous attenuation of the liver parenchyma. There is no evidence for enhancing mass lesion. Spleen: There is homogeneous attenuation of the splenic parenchyma. There is no enhancing mass lesion. Pancreas: There is homogeneous attenuation of the pancreatic parenchyma. There is no evidence for mass lesion or peripancreatic fluid collection. Gall Bladder: The gallbladder is well distended with no evidence for intraluminal calculi, wall thickening or pericholecystic edema. Adrenal glands: The adrenal glands are normal in size and attenuation. There is no evidence for enhancing mass lesion. Kidneys: There is homogeneous attenuation of the renal parenchyma bilaterally. There is no evidence for renal calculus or hydronephrosis. There is no evidence for enhancing mass. Bowel: The patient is again status post near-total colectomy with ileocolonic anastomosis. The stomach is distended with liquid and food stuff despite the patient's history. This also mild to moderate dilatation of the small bowel loops which are predominantly fluid-filled. There is no evidence for disproportionate dilatation or a site of focal obstruction. The findings are most characteristic of an ileus versus gastroenteritis. There are no inflammatory changes present. There is no evidence for free air. Bladder: The bladder is within normal limits with no evidence for focal mass, calculus or diverticulum. : There is no evidence for pelvic mass or adenopathy. There is no evidence for pelvic ascites. Uterus is prominent in size and should be correlated with patient's previous history. Vasculature: There is no evidence for aneurysmal dilatation of the abdominal aorta. Osseous structures: There is no acute osseous pathology. Degenerative changes are seen within the lumbar spine. IMPRESSION: 1. Distended, fluid-filled stomach and mildly to moderately dilated fluid-filled loops of small bowel without evidence for focal obstruction. The findings are most characteristic of an ileus versus gastroenteritis. 3. Additional nonacute findings are delineated above ACT 112: Negative or not required by law. Electronically signed by: Armand Fleming M.D. 09/19/2021 11:18 PM KUB X-Ray 09/20/21 00:57 XR KUB/Abdomen 1 view CLINICAL HISTORY: ng tube placement. COMPARISON STUDY: 08/07/2018 TECHNIQUE: Single view of the abdomen. FINDINGS: The bowel gas pattern is within normal limits without evidence for dilatation or obstruction. NG tube has been placed with its tip extending into the upper body of the stomach. There is no evidence for organomegaly or gross intra-abdominal mass. There are calcifications superimposed over both kidneys characteristic of bilateral renal calculi. No acute osseous pathology. IMPRESSION: 1.Evidence for bilateral renal calculi. Otherwise, no acute abnormality. Tip of NG tube in the upper body of the stomach. ACT 112: Negative or not required by law. Electronically signed by: Armand Fleming M.D. 09/20/2021 7:27 AM Discharge Plan Visit Data Chief Complaint: Abdominal Pain Stated Complaint: UPPER MIDDLE ABD PAIN,NAUSEA,VOMITING ED Provider: Blake Balderas Discharge Problem: Partial small bowel obstruction, Intractable abdominal pain, Intractable vomiting Patient Disposition: Admitted As Inpatient Discharge Instructions Interventions: ED Discharge Assessment Last Done: 09/20/21 03:03
[2021-09-19 22:01] LABS: Basophils # (auto) 0.04 K/uL (0-0.2); Basophils % (auto) 0.3 %; Eosinophils # (auto) 0.05 K/uL (0-0.5); Eosinophils % (auto) 0.4 %; Hematocrit (blood only) 45.5 % (37-47); Hemoglobin 15.1 g/dL (12.0-16.0); Immature Granulocytes # (auto) 0.02 K/uL (0.00-0.02); Immature Granulocytes % (auto) 0.2 %; Lymphocytes # (auto) 0.76 K/uL (1.2-3.4); Lymphocytes % (auto) 6.1 %; Mean Corpuscular Hemoglobin 30.4 pg (25-34); Mean Corpuscular Hgb Conc 33.2 g/dL (32-36); Mean Corpuscular Volume 91.7 fL (80-100); Mean Platelet Volume 9.5 fL (7.4-10.4); Monocytes # (auto) 0.78 K/uL (0.11-0.59); Monocytes % (auto) 6.3 %; Neutrophils # (auto) 10.83 K/uL (1.4-6.5); Neutrophils % (auto) 86.7 %; Platelet Count 361 K/uL (130-400); RDW Coefficient of Variation 12.6 % (11.5-14.5); RDW Standard Deviation 42.3 fL (36.4-46.3); Red Blood Count 4.96 M/uL (4.2-5.4); White Blood Count 12.48 K/uL (4.8-10.8)
[2021-09-19 22:04] LABS: Appearance Urine Clear (Clear); Bilirubin Urine Negative (Negative); Blood Urine Negative (Negative); Color Urine Yellow; Glucose Urine UA Negative (Negative); Ketones Urine Negative (Negative); Leukocyte Esterase Urine Negative (Negative); Nitrite Urine Negative (Negative); Protein Urine Negative (Negative); Specific Gravity Urine 1.036 (1.000-1.030); Urobilinogen Urine Negative (Negative)
[2021-09-19 22:22] LABS: Troponin I < 0.03 ng/ml (0-0.04)
[2021-09-19 22:24] LABS: Alanine Aminotransferase 42 U/L (7-52); Albumin Level 4.8 gm/dl (3.4-5.0); Alkaline Phosphatase 57 U/L (34-104); Anion Gap 8 (3-11); Aspartate Aminotransferase 36 U/L (13-39); BUN Creatinine Ratio 15.8 (10-20); Bilirubin,Total 0.4 mg/dl (0.2-1.0); Blood Urea Nitrogen 15 mg/dl (6-23); Calcium 11.4 mg/dl (8.5-10.1); Carbon Dioxide 26 mmol/L (21-32); Chloride 100 mmol/L (98-107); Creatinine Clr Calc Pharmacy 55.2 ml/min; Est GFR (African American) 82.7 ml/min; Est GFR (Non-African American) 71.3 ml/min; Glucose 155 mg/dl (70-99(Fasting)); Lipase 8 U/L (11-82); Sodium 134 mmol/L (136-145); Total Protein 7.1 gm/dl (6.0-8.3)
[2021-09-19 22:44] LABS: Pregnancy Test, Serum Negative (Negative)
[2021-09-19] MEDS ORDERED: OPTIRAY 320 100ml IV ONE (22:49)
--- NOTE | 2021-09-19 23:19 | CT Scan Report ---
CT abd pelvis IV con only CLINICAL HISTORY: upper abdominal pain, vomiting COMPARISON STUDY: 06/08/2021 CT DOSE: 252.14 mGy.cm TECHNIQUE: Standard CT of the Abdomen and Pelvis was performed with IV contrast. A dose lowering shyam hnique was utilized adhering to the principles of ALARA. Contrast Volume: Optiray 320, 90 ml. The patient did not receive oral contrast. FINDINGS: Lung base: The lung bases are clear. Abdominal cavity: There is no evidence for abdominal mass, adenopathy or ascites. Liver: There is homogeneous attenuation of the liver parenchyma. There is no evidence for enhancing m ass lesion. Spleen: There is homogeneous attenuation of the splenic parenchyma. There is no enhancing mass lesion . Pancreas: There is homogeneous attenuation of the pancreatic parenchyma. There is no evidence for mas s lesion or peripancreatic fluid collection. Gall Bladder: The gallbladder is well distended with no evidence for intraluminal calculi, wall thick ening or pericholecystic edema. Adrenal glands: The adrenal glands are normal in size and attenuation. There is no evidence for enhan cing mass lesion. Kidneys: There is homogeneous attenuation of the renal parenchyma bilaterally. There is no evidence f or renal calculus or hydronephrosis. There is no evidence for enhancing mass. Bowel: The patient is again status post near-total colectomy with ileocolonic anastomosis. The stomac h is distended with liquid and food stuff despite the patient's history. This also mild to moderate d ilatation of the small bowel loops which are predominantly fluid-filled. There is no evidence for dis proportionate dilatation or a site of focal obstruction. The findings are most characteristic of an i leus versus gastroenteritis. There are no inflammatory changes present. There is no evidence for free air. Bladder: The bladder is within normal limits with no evidence for focal mass, calculus or diverticulu m. : There is no evidence for pelvic mass or adenopathy. There is no evidence for pelvic ascites. Uter us is prominent in size and should be correlated with patient's previous history. Vasculature: There is no evidence for aneurysmal dilatation of the abdominal aorta. Osseous structures: There is no acute osseous pathology. Degenerative changes are seen within the lum bar spine. IMPRESSION: 1. Distended, fluid-filled stomach and mildly to moderately dilated fluid-filled loops of small bowel without evidence for focal obstruction. The findings are most characteristic of an ileus versus manny roenteritis. 3. Additional nonacute findings are delineated above ACT 112: Negative or not required by law. Electronically signed by: Armand Fleming M.D. 09/19/2021 11:18 PM
[2021-09-19] MEDS ORDERED: diphenhydrAMINE 50 MG/ML VIAL IV STA (23:22)
--- NOTE | 2021-09-20 00:59 | History & Physical Report ---
Date of Service September 20, 2021 Assessment & Plan (1) Hypercalcemia: Plan: Secondary to clinical dehydration secondary to recurrent emesis episodes from possible recurrent bowel obstruction, incipient stages history of colonic inertia status post bowel resection IBSconstipation predominant hypothyroidism, euthyroid as of today's TSH RAYMUNDO (CPAP intolerance) Hyperglycemia rule out DM, history of insulin resistance from PCOS ADD/anxiety disorder, at baseline Medical telemetry IVF Check serum phosphorus, intact PTH Nephrology consult if without improvement Surgery consult Re: Abdominal pain/emesis, possible recurrent bowel obstruction (Patient requesting for Dr. Hurt.) Check hemoglobin A1c DVT prophylaxis. Lovenox subcu Full code Text document was generated using [employer] voice recognition software. It may contain grammatical or spelling errors. Kindly contact undersigned for clarification of any documentation item in question. History of Present Illness Chief Complaint: Abdominal pain, emesis Primary Care Provider: Rosmery Solomon DO History obtained from patient and records. Medical history significant for history of colonic inertia status post bowel resection, recurrent bowel obstruction, IBSconstipation predominant, GERD, hypothyroidism, RAYMUNDO (CPAP intolerance), ADD, anxiety disorder, hx PCOS Last confinement August 2018 for small bowel obstruction resolved with conservative management. Patient saw [facility] surgeon May 2021 for evaluation of abdominal wall hernia in the epigastrium. Outpatient CT abdomen pelvis showed 4 mm ventral hernia in the midline approximately 6 cm above the umbilicus. Patient was to schedule follow-up appointment with surgeon to discuss issue. Yesterday afternoon patient noted sudden onset achy epigastric discomfort followed by multiple episodes of emesis. No fever, no chills. Left-sided chest pain which patient attributes to lifting in the gym. Usual bowel movements yesterday. Episode similar to bowel obstruction bouts in the past as per patient. NGT inserted at the ER for possible partial bowel obstruction. MEDICAL HISTORY: As above. SURGERIES: , subtotal colectomy, Ileorectal anastomosis, breast enlargement, adhesiolysis, fat tissue surgery from the legs FAMILY HISTORY: Hypertension. Asthma, cancer, ovarian cancer, colon cancer, MS PERSONAL/SOCIAL HISTORY: Nonsmoker. Patient PCP, mental health counselor Allergies Allergy/AdvReac Type Severity Reaction Status Date / Time influenza virus vaccine, Allergy Intermediate UNKNOWN - Verified 09/19/21 21:47 specific episodes of sickness/ passing out Iodinated Contrast Media Allergy Intermediate Hives Verified 09/20/21 02:26 Sulfa (Sulfonamide Allergy Intermediate RASH Verified 09/19/21 21:47 Antibiotics) lamotrigine Allergy Mild RASH Verified 09/19/21 21:47 metoclopramide Allergy Mild gittery Verified 09/19/21 21:47 oxycodone AdvReac Unknown Unknown - Verified 09/19/21 21:47 PERCOCET Home Medications Medication Instructions Recorded Confirmed Type bupropion HCl 150 mg tablet,12 hr 150 mg PO BID 08/06/18 09/19/21 History sustained-release dextroamphetamine-amphetamine 15 15 mg PO BID 08/06/18 09/19/21 History mg tablet levothyroxine 112 mcg tablet 112 mcg PO DAILYBB 08/06/18 09/19/21 History linaclotide 290 mcg capsule 290 mcg PO QAM 08/06/18 09/19/21 History multivitamin 1 tab PO QAM 08/06/18 09/19/21 History spironolactone 100 mg tablet 100 mg PO BID 08/06/18 09/19/21 History buspirone 15 mg tablet 15 mg PO BID 09/19/21 09/19/21 History cyanocobalamin (vitamin B-12) 1,000 mcg IM .Q2W 09/19/21 09/19/21 History 1,000 mcg/mL injection solution epinephrine 0.3 mg/0.3 mL 0.3 mg IM UD 09/19/21 09/19/21 History injection, auto-injector hydroxyzine HCl 25 mg tablet 25 mg PO QID PRN 09/19/21 09/19/21 History Past Med/Surg History Medical History ADHD (attention deficit hyperactivity disorder) Anxiety Chronic constipation GERD (gastroesophageal reflux disease) Hypothyroidism IBS (irritable bowel syndrome) PCOS (polycystic ovarian syndrome) SBO (small bowel obstruction) "2008, 2011, 2012" On 04/29/16 12:28 Manasa Fuentes wrote "2008. 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 02/18/09 Dr. 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 Beliefs That Will Affect Care: None marital status: Current Living Situation: Spouse current occupational status: employed How many Children do You have: 3 Feels Safe at Home: Yes during the past year weight has: remained stable Assistive Devices: None Review of Systems Review of Systems: As per HPI, all 10 systems reviewed, all other ROS negative Physical Exam Physical Exam: GENERAL: Slightly uncomfortable, no respiratory distress SKIN: Normal color, warm HEENT: [place] palpebral conjunctivae, no ptosis, dry buccal mucosa, NGT in place NECK : Supple, no tenderness CHEST : CTA, no tenderness HEART : Bradycardic, no obvious murmurs ABDOMEN: No distention, central abdominal tenderness EXTREMITIES : No LE swelling/tenderness, no other conspicuous deformities noted NEUROLOGIC : Coherent, no facial asymmetry, no other gross focality Results & Data Results & Data ([facility]) Vital Signs (Past 12 Hours) Vital Signs Temp Pulse Pulse Resp BP BP Pulse Ox 09/19/21 22:57 58 L 20 126/74 97 09/19/21 21:45 84 20 126/74 97 09/19/21 21:03 36.5 C 70 18 128/80 100 Laboratory Results Laboratory Results WBC 9.65 K/uL (4.8-10.8) 09/20/21 04:44 RBC 4.49 M/uL (4.2-5.4) 09/20/21 04:44 Hgb 13.4 g/dL (12.0-16.0) 09/20/21 04:44 Hct 41.4 % (37-47) 09/20/21 04:44 MCV 92.2 fL (80-100) 09/20/21 04:44 MCH 29.8 pg (25-34) 09/20/21 04:44 MCHC 32.4 g/dL (32-36) 09/20/21 04:44 RDW Std Deviation 42.9 fL (36.4-46.3) 09/20/21 04:44 RDW Coeff of Any 12.7 % (11.5-14.5) 09/20/21 04:44 Plt Count 323 K/uL (130-400) 09/20/21 04:44 MPV 9.2 fL (7.4-10.4) 09/20/21 04:44 Immature Gran % (Auto) 0.2 % 09/20/21 04:44 Neut % (Auto) 76.0 % 09/20/21 04:44 Lymph % (Auto) 13.1 % 09/20/21 04:44 [place] % (Auto) 9.9 % 09/20/21 04:44 Eos % (Auto) 0.6 % 09/20/21 04:44 Baso % (Auto) 0.2 % 09/20/21 04:44 Neut # (Auto) 7.33 K/uL (1.4-6.5) H 09/20/21 04:44 Lymph # (Auto) 1.26 K/uL (1.2-3.4) 09/20/21 04:44 [place] # (Auto) 0.96 K/uL (0.11-0.59) H 09/20/21 04:44 Eos # (Auto) 0.06 K/uL (0-0.5) 09/20/21 04:44 Baso # (Auto) 0.02 K/uL (0-0.2) 09/20/21 04:44 Immature Gran # (Auto) 0.02 K/uL (0.00-0.02) 09/20/21 04:44 APTT 22.6 Seconds (21.0-31.0) 09/19/21 21:51 PTT Ratio 0.9 09/19/21 21:51 Sodium 135 mmol/L (136-145) L 09/20/21 04:45 Potassium 4.2 mmol/L (3.5-5.1) 09/20/21 04:45 Chloride 101 mmol/L (98-107) 09/20/21 04:45 Carbon Dioxide 30 mmol/L (21-32) 09/20/21 04:45 Anion Gap 4 (3-11) 09/20/21 04:45 BUN 12 mg/dl (6-23) 09/20/21 04:45 Creatinine 0.90 mg/dl (0.6-1.2) 09/20/21 04:45 Est Cr Clr Drug Dosing 58.3 ml/min 09/20/21 04:45 Est GFR ( Amer) 88.3 ml/min 09/20/21 04:45 Est GFR (Non-Af Amer) 76.1 ml/min 09/20/21 04:45 BUN/Creatinine Ratio 13.3 (10-20) 09/20/21 04:45 Glucose 115 mg/dl (70-99(Fasting)) H 09/20/21 04:45 Estimat Average Glucose 120 mg/dl 09/19/21 21:51 Hemoglobin A1c 5.8 % (4.5-5.6) H 09/19/21 21:51 Calcium 9.5 mg/dl (8.5-10.1) 09/20/21 04:45 Phosphorus 4.2 mg/dl (2.5-4.9) 09/20/21 01:17 Total Bilirubin 0.4 mg/dl (0.2-1.0) 09/19/21 21:51 Direct Bilirubin 0.0 mg/dl (0-0.2) 09/19/21 21:51 AST 36 U/L (13-39) 09/19/21 21:51 ALT 42 U/L (7-52) 09/19/21 21:51 Alkaline Phosphatase 57 U/L (34-104) 09/19/21 21:51 Troponin I < 0.03 ng/ml (0-0.04) 09/19/21 21:51 Total Protein 7.1 gm/dl (6.0-8.3) 09/19/21 21:51 Albumin 4.8 gm/dl (3.4-5.0) 09/19/21 21:51 Lipase 8 U/L (11-82) L 09/19/21 21:51 TSH 0.759 uIu/ml (0.300-4.500) 09/20/21 01:17 HCG, Qual Negative (Negative) 09/19/21 21:51 PTH Intact 18.4 pg/ml (12.0-88.0) 09/20/21 01:17 Urine Color Yellow 09/19/21 21:51 Urine Appearance Clear (Clear) 09/19/21 21:51 Urine pH 5.0 (4.5-7.5) 09/19/21 21:51 Ur Specific [place] 1.036 (1.000-1.030) H 09/19/21 21:51 Urine Protein Negative (Negative) 09/19/21 21:51 Urine Glucose (UA) Negative (Negative) 09/19/21 21:51 Urine Ketones Negative (Negative) 09/19/21 21:51 Urine Blood Negative (Negative) 09/19/21 21:51 Urine Nitrite Negative (Negative) 09/19/21 21:51 Urine Bilirubin Negative (Negative) 09/19/21 21:51 Urine Urobilinogen Negative (Negative) 09/19/21 21:51 Ur Leukocyte Esterase Negative (Negative) 09/19/21 21:51 SARS-CoV-2 (PCR) NEGATIVE (Negative) 09/20/21 01:18 Influenza Type A (PCR) Negative (Neg) 09/20/21 01:18 Influenza Type B (PCR) Negative (Neg) 09/20/21 01:18 RSV (RT-PCR) Negative (Neg) 09/20/21 01:18 Impressions Abdomen/Pelvis CT 09/19/21 21:25 CT abd pelvis IV con only CLINICAL HISTORY: upper abdominal pain, vomiting COMPARISON STUDY: 06/08/2021 CT DOSE: 252.14 mGy.cm TECHNIQUE: Standard CT of the Abdomen and Pelvis was performed with IV contrast. A dose lowering technique was utilized adhering to the principles of ALARA. Contrast Volume: Optiray 320, 90 ml. The patient did not receive oral contrast. FINDINGS: Lung base: The lung bases are clear. Abdominal cavity: There is no evidence for abdominal mass, adenopathy or ascites. Liver: There is homogeneous attenuation of the liver parenchyma. There is no evidence for enhancing mass lesion. Spleen: There is homogeneous attenuation of the splenic parenchyma. There is no enhancing mass lesion. Pancreas: There is homogeneous attenuation of the pancreatic parenchyma. There is no evidence for mass lesion or peripancreatic fluid collection. Gall Bladder: The gallbladder is well distended with no evidence for intraluminal calculi, wall thickening or pericholecystic edema. Adrenal glands: The adrenal glands are normal in size and attenuation. There is no evidence for enhancing mass lesion. Kidneys: There is homogeneous attenuation of the renal parenchyma bilaterally. There is no evidence for renal calculus or hydronephrosis. There is no evidence for enhancing mass. Bowel: The patient is again status post near-total colectomy with ileocolonic anastomosis. The stomach is distended with liquid and food stuff despite the patient's history. This also mild to moderate dilatation of the small bowel loops which are predominantly fluid-filled. There is no evidence for disproportionate dilatation or a site of focal obstruction. The findings are most characteristic of an ileus versus gastroenteritis. There are no inflammatory changes present. There is no evidence for free air. Bladder: The bladder is within normal limits with no evidence for focal mass, calculus or diverticulum. : There is no evidence for pelvic mass or adenopathy. There is no evidence for pelvic ascites. Uterus is prominent in size and should be correlated with patient's previous history. Vasculature: There is no evidence for aneurysmal dilatation of the abdominal aorta. Osseous structures: There is no acute osseous pathology. Degenerative changes are seen within the lumbar spine. IMPRESSION: 1. Distended, fluid-filled stomach and mildly to moderately dilated fluid-filled loops of small bowel without evidence for focal obstruction. The findings are most characteristic of an ileus versus gastroenteritis. 3. Additional nonacute findings are delineated above ACT 112: Negative or not required by law. Electronically signed by: Armand Fleming M.D. 09/19/2021 11:18 PM Diagnostic Findings EKG as per my interpretation: Rate 55, tachycardia, normal axis, no ischemia
[2021-09-20] MEDS ORDERED: SODIUM CHLORIDE 0.9% 1000ML 1,000 ML IV STA (01:07)
[2021-09-20] MEDS ORDERED: PROMETHAZINE HCL 6.25 MG in SODIUM CHLORIDE 0.9% 50 ML IV STA (01:41)
[2021-09-20] MEDS ORDERED: PROMETHAZINE HCL 6.25 MG in SODIUM CHLORIDE 0.9% 50 ML IV PRN (01:45)
[2021-09-20 01:59] LABS: Partial Thromboplastin Ratio 0.9; Partial Thromboplastin Time 22.6 Seconds (21.0-31.0)
[2021-09-20] MEDS ORDERED: PROMETHAZINE 12.5 MG/50.5 ML NSS IV ONE (02:07)
[2021-09-20 02:18] LABS: Influenza A virus by PCR Negative (Neg); Influenza B virus by PCR Negative (Neg); RSV by PCR Negative (Neg); SARS CoV2 RNA(COVID-19) InHosp NEGATIVE (Negative)
[2021-09-20] MEDS ORDERED: diphenhydrAMINE 50 MG/ML VIAL IV STA ×2 (02:28→14:31)
[2021-09-20] MEDS ORDERED: diphenhydrAMINE 50 MG/ML VIAL ONE (02:30)
[2021-09-20] MEDS ORDERED: SODIUM CHLORIDE 0.9% 1000ML 1,000 ML IV ONE (02:30)
[2021-09-20] MEDS ORDERED: hydrOXYzine HCl 25 MG TAB PO PRN (02:53)
[2021-09-20] MEDS: KETOROLAC TROMETHAMINE 15 MG/ML VIAL IV PRN ×3 (02:58→22:36)
[2021-09-20] MEDS: LORazepam 0.5 MG/1 ML VIAL IV PRN ×2 (02:58→21:30)
[2021-09-20] MEDS: ACETAMINOPHEN 1,000 MG/100 ML VIAL IV PRN ×2 (04:49→14:51)
[2021-09-20 05:04] LABS: Basophils # (auto) 0.02 K/uL (0-0.2); Basophils % (auto) 0.2 %; Eosinophils # (auto) 0.06 K/uL (0-0.5); Eosinophils % (auto) 0.6 %; Hematocrit (blood only) 41.4 % (37-47); Hemoglobin 13.4 g/dL (12.0-16.0); Immature Granulocytes # (auto) 0.02 K/uL (0.00-0.02); Immature Granulocytes % (auto) 0.2 %; Lymphocytes # (auto) 1.26 K/uL (1.2-3.4); Lymphocytes % (auto) 13.1 %; Mean Corpuscular Hemoglobin 29.8 pg (25-34); Mean Corpuscular Hgb Conc 32.4 g/dL (32-36); Mean Corpuscular Volume 92.2 fL (80-100); Mean Platelet Volume 9.2 fL (7.4-10.4); Monocytes # (auto) 0.96 K/uL (0.11-0.59); Monocytes % (auto) 9.9 %; Neutrophils # (auto) 7.33 K/uL (1.4-6.5); Platelet Count 323 K/uL (130-400); RDW Coefficient of Variation 12.7 % (11.5-14.5); RDW Standard Deviation 42.9 fL (36.4-46.3); Red Blood Count 4.49 M/uL (4.2-5.4); White Blood Count 9.65 K/uL (4.8-10.8)
[2021-09-20] MEDS ORDERED: KETOROLAC TROMETHAMINE 15 MG/ML VIAL IV ONE (05:32)
[2021-09-20] MEDS ORDERED: FAMOTIDINE 20MG IV PUSH 20 MG/5 ML SYR IV STA (05:46)
[2021-09-20] MEDS: LEVOTHYROXINE SODIUM 112 MCG TABLET PO SCH (06:03)
[2021-09-20 06:14] LABS: BUN Creatinine Ratio 13.3 (10-20); Calcium 9.5 mg/dl (8.5-10.1); Creatinine Clr Calc Pharmacy 58.3 ml/min; Est GFR (African American) 88.3 ml/min; Est GFR (Non-African American) 76.1 ml/min; Potassium 4.2 mmol/L (3.5-5.1)
[2021-09-20] MEDS: AMPHETAMINE ASP/SULF/DEXTRAMPH 5 MG TAB PO SCH ×2 (07:12→13:51)
--- NOTE | 2021-09-20 07:28 | XRay Report ---
XR KUB/Abdomen 1 view CLINICAL HISTORY: ng tube placement. COMPARISON STUDY: 08/07/2018 TECHNIQUE: Single view of the abdomen. FINDINGS: The bowel gas pattern is within normal limits without evidence for dilatation or obstruction. NG tube has been placed with its tip extending into the upper body of the stomach. There is no evidence for organomegaly or gross intra-abdominal mass. There are calcifications superimposed over both kidneys c haracteristic of bilateral renal calculi. No acute osseous pathology. IMPRESSION: 1.Evidence for bilateral renal calculi. Otherwise, no acute abnormality. Tip of NG tube in the upper body of the stomach. ACT 112: Negative or not required by law. Electronically signed by: Armand Fleming M.D. 09/20/2021 7:27 AM
[2021-09-20] MEDS: SODIUM CHLORIDE 0.9% 1000ML 1,000 ML IV SCH ×3 (07:35→22:36)
[2021-09-20 07:43] LABS: Estimated Average Glucose 120 mg/dl; Hemoglobin A1C 5.8 % (4.5-5.6)
[2021-09-20] MEDS: busPIRone 15 MG TAB PO SCH ×2 (08:02→20:42)
[2021-09-20] MEDS: LINACLOTIDE 145 MCG CAPSULE PO SCH (08:02)
[2021-09-20] MEDS: buPROPion SR 150 MG TABCR PO SCH ×2 (08:02→20:42)
[2021-09-20] MEDS: MULTIVITAMIN TAB PO SCH (08:03)
--- NOTE | 2021-09-20 08:13 | Surgery Consultation ---
Date of Consultation September 20, 2021 Assessment & Plan (1) Partial small bowel obstruction: This is a 46y F with a PMH of anxiety, ADHD, hypothyroid, history of multiple SBO/partial SBO, PSH of colectomy 2007 for? colonic inertia, ex lap and FLOR 2008, , and scar revision who presents to the [facility] ED on 09/19/21 with complaints of abdominal pain, nausea/vomiting. In the ER she underwent a CT a/p that revealed a "distended, fluid-filled stomach and mildly to moderately dilated fluid-filled loops of small bowel without evidence for focal obstruction. The findings are most characteristic of an ileus versus gastroenteritis." On exam patient's abdomen is soft, with mild bloating, and some discomfort elicited in the epigastric region. An NGT has been placed and she feels mild improvement overall in her symptoms. She does have a history of a tiny ventral hernia she has seen Dr. Hurt in outpatient consultation in the past she is planning for future repair, this does not appear to be causing any of her current issues. For now agree with a period of bowel rest, NPO with IVF and NGT for decompression. Pending progress may benefit from a contrast study, will need pre medicated if so due to contrast allergy. Consideration given to possible GI consult given history of colonic inertia and GI issues. We will follow. Supervising Physician Co-Signing Physician Notes Patient with significant nausea and vomiting and gastric distention Mildly dilated small bowel with history of prior operations and likely has some mild adhesions She has a 4 mm ventral hernia which is not associated with any of this and is very difficult to even see on her current CAT scan I did operate on her approximately 12 years ago for lysis of adhesions She had a significant amount of gastric contents from her NG tube and now has just clear gastric fluid I suspect this should resolve with medical management At some point could consider a contrast study-CT scan or small bowel follow- through May consider GI evaluation and that she has been followed in the past by the [facility] GI team including Dr. Matthews and Stiven History of Present Illness Attending Physician: Chito Cintron MD History of Present Illness This is a 46y F with a PMH of anxiety, ADHD, hypothyroid, history of multiple SBO/partial SBO, PSH of colectomy 2007 for? colonic inertia, ex lap and FLOR 2009, , and scar revision who presents to the [facility] ED on 09/19/21 with complaints of abdominal pain, nausea/vomiting. Patient reports her abdominal pain woke her up from her sleep yesterday at 4AM and it persisted. She subsequently developed nausea/vomiting up to 6x and came into the ER for further evaluation. In the ER she underwent a CT a/p that revealed a "distended, fluid- filled stomach and mildly to moderately dilated fluid-filled loops of small bowel without evidence for focal obstruction. The findings are most characteristic of an ileus versus gastroenteritis." Patient says at its worst the pain was rated a 9-10/10 in severity and located mostly in her upper abdomen. She reports feeling similar to when she has had a bowel obstruction in the past. Her last BM was yesterday and was normal for her. She is passing some small amounts of flatus. She feels mildly better with the NGT in place but still endorses a little bit of nausea and pain. She denies fevers/chills, CP/SOB, or being around any sick contacts. Allergies Allergy/AdvReac Type Severity Reaction Status Date / Time influenza virus vaccine, Allergy Intermediate UNKNOWN - Verified 09/19/21 21:47 specific episodes of sickness/ passing out Iodinated Contrast Media Allergy Intermediate Hives Verified 09/20/21 02:26 Sulfa (Sulfonamide Allergy Intermediate RASH Verified 09/19/21 21:47 Antibiotics) lamotrigine Allergy Mild RASH Verified 09/19/21 21:47 metoclopramide Allergy Mild gittery Verified 09/19/21 21:47 oxycodone AdvReac Unknown Unknown - Verified 09/19/21 21:47 PERCOCET Home Medications Medication Instructions Recorded Confirmed Type bupropion HCl 150 mg tablet,12 hr 150 mg PO BID 08/06/18 09/19/21 History sustained-release dextroamphetamine-amphetamine 15 15 mg PO BID 08/06/18 09/19/21 History mg tablet levothyroxine 112 mcg tablet 112 mcg PO DAILYBB 08/06/18 09/19/21 History linaclotide 290 mcg capsule 290 mcg PO QAM 08/06/18 09/19/21 History multivitamin 1 tab PO QAM 08/06/18 09/19/21 History spironolactone 100 mg tablet 100 mg PO BID 08/06/18 09/19/21 History buspirone 15 mg tablet 15 mg PO BID 09/19/21 09/19/21 History cyanocobalamin (vitamin B-12) 1,000 mcg IM .Q2W 09/19/21 09/19/21 History 1,000 mcg/mL injection solution epinephrine 0.3 mg/0.3 mL 0.3 mg IM UD 09/19/21 09/19/21 History injection, auto-injector hydroxyzine HCl 25 mg tablet 25 mg PO QID PRN 09/19/21 09/19/21 History Patient History Medical History ADHD (attention deficit hyperactivity disorder) Anxiety Chronic constipation GERD (gastroesophageal reflux disease) Hypothyroidism IBS (irritable bowel syndrome) PCOS (polycystic ovarian syndrome) SBO (small bowel obstruction) "2008, 2011, 2012" On 04/29/16 12:28 Manasa Gina wrote "2008. 2012" Surgical History H/O colectomy "2007 - due to motility issues subtotal colectomy with ileorectal anastomosis " H/O exploratory laparotomy (02/18/09) Exploratory laparotomy with lysis of adhesions. 02/18/09 Dr. Hurt for SBO H/O: Hx of breast augmentation (09/13/17) dual plane 3; Natrelle Inspira SSX 375 cc Hx of tonsillectomy S/P scar revision (06/27/17) revision midline abdominal scar Family History Grandmother (Paternal) Cancer Stroke Grandfather (Paternal) Diabetes Heart disease Other Colon cancer Multiple sclerosis Ovarian cancer Thyroid disorder Social History Smoking Status: Never smoker Second Hand Exposure: No; Hx Alcohol Use: Yes Alcohol type: wine Alcohol Intake Frequency: 2-4 x/Month Hx Substance Use: No Preferred Language: Luxembourger Communication Ability: Effective Clarifier Required: No Beliefs That Will Affect Care: None marital status: Current Living Situation: Spouse current occupational status: employed How many Children do You have: 3 Feels Safe at Home: Yes during the past year weight has: remained stable Assistive Devices: None Review of Systems Constitutional: no fever and no chills Respiratory: no dyspnea Cardiovascular: no chest pain Gastrointestinal: + abdominal pain, + bloating, + nausea and + vomiting Physical Exam Physical Exam: awake/alert Constitutional: no acute distress Respiratory: normal respiratory effort Gastrointestinal (Abdomen): Inspection/Auscultation: + abdomen distended (mild bloating) and + abdominal surgical scar (midline scar well healed) Percussion/Palpation: + abdomen tender (mild discomfort to palpation in epigastric region) and abdomen soft; no guarding Results & Data ([facility]) Vital Signs (Past 12 Hours) Vital Signs Temp Pulse Pulse Resp BP BP Pulse Ox 09/20/21 03:01 80 18 134/60 99 09/20/21 01:57 87 18 127/70 98 09/20/21 00:00 80 18 126/71 97 09/19/21 22:57 58 L 20 126/74 97 09/19/21 21:45 84 20 126/74 97 09/19/21 21:03 36.5 C 70 18 128/[address] abd pelvis IV con only CLINICAL HISTORY: upper abdominal pain, vomiting COMPARISON STUDY: 06/08/2021 CT DOSE: 252.14 mGy.cm TECHNIQUE: Standard CT of the Abdomen and Pelvis was performed with IV contrast. A dose lowering technique was utilized adhering to the principles of ALARA. Contrast Volume: Optiray 320, 90 ml. The patient did not receive oral contrast. FINDINGS: Lung base: The lung bases are clear. Abdominal cavity: There is no evidence for abdominal mass, adenopathy or ascites. Liver: There is homogeneous attenuation of the liver parenchyma. There is no evidence for enhancing mass lesion. Spleen: There is homogeneous attenuation of the splenic parenchyma. There is no enhancing mass lesion. Pancreas: There is homogeneous attenuation of the pancreatic parenchyma. There is no evidence for mass lesion or peripancreatic fluid collection. Gall Bladder: The gallbladder is well distended with no evidence for intraluminal calculi, wall thickening or pericholecystic edema. Adrenal glands: The adrenal glands are normal in size and attenuation. There is no evidence for enhancing mass lesion. Kidneys: There is homogeneous attenuation of the renal parenchyma bilaterally. There is no evidence for renal calculus or hydronephrosis. There is no evidence for enhancing mass. Bowel: The patient is again status post near-total colectomy with ileocolonic anastomosis. The stomach is distended with liquid and food stuff despite the patient's history. This also mild to moderate dilatation of the small bowel loops which are predominantly fluid-filled. There is no evidence for disproportionate dilatation or a site of focal obstruction. The findings are most characteristic of an ileus versus gastroenteritis. There are no inflammatory changes present. There is no evidence for free air. Bladder: The bladder is within normal limits with no evidence for focal mass, calculus or diverticulum. : There is no evidence for pelvic mass or adenopathy. There is no evidence for pelvic ascites. Uterus is prominent in size and should be correlated with patient's previous history. Vasculature: There is no evidence for aneurysmal dilatation of the abdominal aorta. Osseous structures: There is no acute osseous pathology. Degenerative changes are seen within the lumbar spine. IMPRESSION: 1. Distended, fluid-filled stomach and mildly to moderately dilated fluid-filled loops of small bowel without evidence for focal obstruction. The findings are most characteristic of an ileus versus gastroenteritis. 3. Additional nonacute findings are delineated above ACT 112: Negative or not required by law. Electronically signed by: Armand Fleming M.D. 09/19/2021 11:18 PM XR KUB/Abdomen 1 view CLINICAL HISTORY: ng tube placement. COMPARISON STUDY: 08/07/2018 TECHNIQUE: Single view of the abdomen. FINDINGS: The bowel gas pattern is within normal limits without evidence for dilatation or obstruction. NG tube has been placed with its tip extending into the upper body of the stomach. There is no evidence for organomegaly or gross intra-abdominal mass. There are calcifications superimposed over both kidneys characteristic of bilateral renal calculi. No acute osseous pathology. IMPRESSION: 1.Evidence for bilateral renal calculi. Otherwise, no acute abnormality. Tip of NG tube in the upper body of the stomach. ACT 112: Negative or not required by law. Electronically signed by: Armand Fleming M.D. 09/20/2021 7:27 AM PG Care Time/CCT Total # of Minutes Spent Total Time Spent with Patient: Total time spent is greater than 50% in coordination of care (as documented) at patient's floor/unit and/or counseling patient: Coding Level of Care Code 60509 Inpt Consult Level 2 Diagnoses Partial small bowel obstruction K56.967
[2021-09-20] MEDS: ENOXAPARIN INJ 30 MG/0.3 ML SYR SQ SCH (11:34)
[2021-09-20] MEDS ORDERED: Nursing to Pharmacy Communication SCH (22:00)
--- NOTE | 2021-09-20 22:32 | Electrocardiogram Report ---
Test Reason : Blood Pressure : / mmHG Vent. Rate : 055 BPM Atrial Rate : 055 BPM P-R Int : 130 ms QRS Dur : 090 ms QT Int : 420 ms P-R-T Axes : 010 077 064 degrees QTc Int : 401 ms Sinus bradycardia with sinus arrhythmia Otherwise normal ECG When compared with ECG of 04-FEB-2017 16:35, Vent. rate has decreased BY 28 BPM Nonspecific T wave abnormality, improved in Inferior leads Nonspecific T wave abnormality no longer evident in Anterolateral leads Confirmed by Sawyer Odom ([id number]) on 09/20/2021 10:32:43 PM Referred By: REFERRED SELF Confirmed By:Sawyer Odom
--- NOTE | 2021-09-20 23:59 | Communication Note ---
Date of Service: September 20, 2021 Patient was seen and examined for follow-up of abdominal pain associated with nausea and vomiting. Lying in bed with no acute distress. CT abdomen and pelvis showed Distended, fluid-filled stomach and mildly to moderately dilated fluid-filled loops of small bowel without evidence for focal obstruction. Continue conservative management with NG tube for decompression. surgery on board. We will keep n.p.o., IV fluid and bowel rest. Monitor electrolytes. Continue pain control and antiemetic meds. MD Saida
[2021-09-21] MEDS: LEVOTHYROXINE SODIUM 112 MCG TABLET PO SCH (06:21)
--- NOTE | 2021-09-21 06:39 | Surgery Progress Note ---
Date of Service September 21, 2021 Assessment & Plan (1) Partial small bowel obstruction: Plan: Patient appears to be much improved We will DC NG tube Begin clear liquids and advance diet as tolerated Would be okay to discharge patient home today from surgical standpoint If she progresses this morning Admission and Anticipated Discharge Date Admission Date: September 20, 2021 Subjective Patient feeling but much better Positive flatus and bowel movement Clear NG output Taking significant ice chips Review of Systems Review of Systems: All systems reviewed & are unremarkable except as noted in HPI & below Physical Exam Constitutional: no acute distress and not ill appearing Eyes: + anicteric sclerae Respiratory: normal respiratory effort; no respiratory distress Cardiovascular: Rate/Rhythm: regular rate Gastrointestinal (Abdomen): Inspection/Auscultation: normal bowel sounds; abdomen not distended Musculoskeletal: Head/Neck/Chest: head atraumatic Skin: no rashes, warm and dry Neurologic: awake Psychiatric: Orientation: alert Results & Data ([facility]) Vital Signs (Past 12 Hours) Vital Signs Temp Pulse Pulse Resp BP BP Pulse Ox 09/21/21 02:27 36.8 C 78 16 113/73 97 09/20/21 23:42 36.7 C 80 16 131/84 99 09/20/21 22:18 66 PG Care Time/CCT Total # of Minutes Spent Total Time Spent with Patient: Total time spent is greater than 50% in coordination of care (as documented) at patient's floor/unit and/or counseling patient: Coding Level of Care Code 05061 Inpt Consult Level 3 Diagnoses Partial small bowel obstruction K56.600
[2021-09-21] MEDS: MULTIVITAMIN TAB PO SCH (07:41)
[2021-09-21] MEDS: LINACLOTIDE 145 MCG CAPSULE PO SCH (07:41)
[2021-09-21] MEDS: buPROPion SR 150 MG TABCR PO SCH (07:42)
[2021-09-21] MEDS: busPIRone 15 MG TAB PO SCH (07:42)
[2021-09-21] MEDS: ENOXAPARIN INJ 30 MG/0.3 ML SYR SQ SCH (07:42)
[2021-09-21] MEDS: KETOROLAC TROMETHAMINE 15 MG/ML VIAL IV PRN ×2 (07:47→16:19)
[2021-09-21] MEDS: AMPHETAMINE ASP/SULF/DEXTRAMPH 5 MG TAB PO SCH ×2 (07:56→13:13)
[2021-09-21] MEDS: SODIUM CHLORIDE 0.9% 1000ML 1,000 ML IV SCH (08:30)
--- NOTE | 2021-09-21 15:06 | Hospitalist Progress Note ---
Date of Service September 21, 2021 Assessment & Plan (1) Partial small bowel obstruction: Plan: Present on admission with abdominal pain associated with nausea CT abd/pelvis showed distended, fluid-filled stomach and mildly to moderately dilated fluid-filled loops of small bowel without evidence for focal obstruction. NG tube was placed on admission Surgery on board NG tube removed Starting on clear liquid diet and advanced to full liquid as tolerated advanced to soft diet, then tolerated Pt is very anxious to go home today Ok from surgery standpoint to discharge home if tolerates soft diet (2) Hypercalcemia: Plan: Calcium on admission 11.4 Possible related to dehydration Repeat calcium 9.5 Check calcium in 1 week Hypothyroidism TSH WNL Continue Levothyroxine RAYMUNDO CPAP intolerance Hyperglycemia Most HBA1c 5.8 Continue monitor BS DVT px On Lovenox Code Status Disposition Will discharge home today Admission and Anticipated Discharge Date Admission Date: September 20, 2021 Subjective Pt was seen and examined for follow up of abdominal pain and nausea Lying in bed with no acute distress Pt said that she feels much better Pt was able to tolerate soft diet Denies any chest pain, palpitation, dizziness and SOB Review of Systems Review of Systems: All systems reviewed & are unremarkable except as noted in Subjective Physical Exam Physical Exam: General- No acute distress Head- atraumatic Eyes- PERRL, EOMI, ENT- oropharynx clear Neck- supple, no JVD Lungs- clear to auscultation Heart- regular rhythm; no murmur Abdomen- normal bowel sounds, soft, nontender Extremities- no calf tenderness Neuro- alert, oriented x 3; PERRL, EOMI; no facial palsy; no dysarthria Skin- warm & dry Results & Data Results & Data ([facility]) Vital Signs (Past 12 Hours) Vital Signs Temp Pulse Resp BP Pulse Ox 09/21/21 07:00 36.6 C 81 16 117/75 96
--- NOTE | 2021-09-24 12:06 | Discharge Summary ---
Date of Service September 21, 2021 Admission HPI Per Admitting Provider History obtained from patient and records. Medical history significant for history of colonic inertia status post bowel resection, recurrent bowel obstruction, IBSconstipation predominant, GERD, hypothyroidism, RAYMUNDO (CPAP intolerance), ADD, anxiety disorder, hx PCOS Last confinement August 2018 for small bowel obstruction resolved with conservative management. Patient saw [facility] surgeon May 2021 for evaluation of abdominal wall hernia in the epigastrium. Outpatient CT abdomen pelvis showed 4 mm ventral hernia in the midline approximately 6 cm above the umbilicus. Patient was to schedule follow-up appointment with surgeon to discuss issue. Yesterday afternoon patient noted sudden onset achy epigastric discomfort followed by multiple episodes of emesis. No fever, no chills. Left-sided chest pain which patient attributes to lifting in the gym. Usual bowel movements yesterday. Episode similar to bowel obstruction bouts in the past as per patient. NGT inserted at the ER for possible partial bowel obstruction. MEDICAL HISTORY: As above. SURGERIES: , subtotal colectomy, Ileorectal anastomosis, breast enlargement, adhesiolysis, fat tissue surgery from the legs FAMILY HISTORY: Hypertension. Asthma, cancer, ovarian cancer, colon cancer, MS PERSONAL/SOCIAL HISTORY: Nonsmoker. Patient PCP, mental health counselor Admission Exam Per Admitting Provider GENERAL: Slightly uncomfortable, no respiratory distress SKIN: Normal color, warm HEENT: Eunice palpebral conjunctivae, no ptosis, dry buccal mucosa, NGT in place NECK : Supple, no tenderness CHEST : CTA, no tenderness HEART : Bradycardic, no obvious murmurs ABDOMEN: No distention, central abdominal tenderness EXTREMITIES : No LE swelling/tenderness, no other conspicuous deformities noted NEUROLOGIC : Coherent, no facial asymmetry, no other gross focality Principal Diagnosis Partial small bowel obstruction: Hypercalcemia: Hypothyroidism RAYMUNDO Discharge Exam General- No acute distress Head- atraumatic Eyes- PERRL, EOMI, ENT- oropharynx clear Neck- supple, no JVD Lungs- clear to auscultation Heart- regular rhythm; no murmur Abdomen- normal bowel sounds, soft, nontender Extremities- no calf tenderness Neuro- alert, oriented x 3; PERRL, EOMI; no facial palsy; no dysarthria Skin- warm & dry Discharge Data Allergies Allergy/AdvReac Type Severity Reaction Status Date / Time influenza virus vaccine, Allergy Intermediate UNKNOWN - Verified 09/22/21 23:08 specific episodes of sickness/ passing out Iodinated Contrast Media Allergy Intermediate Hives Verified 09/22/21 23:08 Sulfa (Sulfonamide Allergy Intermediate RASH Verified 09/22/21 23:08 Antibiotics) lamotrigine Allergy Mild RASH Verified 09/22/21 23:08 metoclopramide Allergy Mild gittery Verified 09/22/21 23:08 oxycodone AdvReac Unknown Unknown - Verified 09/22/21 23:08 PERCOCET Consultations 09/20/21 00:44 ED Decision to Admit Stat 09/20/21 02:53 Consult General Surgery Routine Ordered Studies 09/19/21 21:25 CT abd pelvis IV con only Stat XR KUB/Abdomen 1 view CLINICAL HISTORY: ng tube placement. COMPARISON STUDY: 08/07/2018 TECHNIQUE: Single view of the abdomen. FINDINGS: The bowel gas pattern is within normal limits without evidence for dilatation or obstruction. NG tube has been placed with its tip extending into the upper body of the stomach. There is no evidence for organomegaly or gross intra-abdominal mass. There are calcifications superimposed over both kidneys characteristic of bilateral renal calculi. No acute osseous pathology. IMPRESSION: 1.Evidence for bilateral renal calculi. Otherwise, no acute abnormality. Tip of NG tube in the upper body of the stomach. ACT 112: Negative or not required by law. Electronically signed by: Armand Fleming M.D. 09/20/2021 7:27 AM Dictated:09/20/21724 Transcribed: 09/20/21724 CT abd pelvis IV con only CLINICAL HISTORY: upper abdominal pain, vomiting COMPARISON STUDY: 06/08/2021 CT DOSE: 252.14 mGy.cm TECHNIQUE: Standard CT of the Abdomen and Pelvis was performed with IV contrast. A dose lowering technique was utilized adhering to the principles of ALARA. Contrast Volume: Optiray 320, 90 ml. The patient did not receive oral contrast. FINDINGS: Lung base: The lung bases are clear. Abdominal cavity: There is no evidence for abdominal mass, adenopathy or ascites. Liver: There is homogeneous attenuation of the liver parenchyma. There is no evidence for enhancing mass lesion. Spleen: There is homogeneous attenuation of the splenic parenchyma. There is no enhancing mass lesion. Pancreas: There is homogeneous attenuation of the pancreatic parenchyma. There is no evidence for mass lesion or peripancreatic fluid collection. Gall Bladder: The gallbladder is well distended with no evidence for intraluminal calculi, wall thickening or pericholecystic edema. Adrenal glands: The adrenal glands are normal in size and attenuation. There is no evidence for enhancing mass lesion. Kidneys: There is homogeneous attenuation of the renal parenchyma bilaterally. There is no evidence for renal calculus or hydronephrosis. There is no evidence for enhancing mass. Bowel: The patient is again status post near-total colectomy with ileocolonic anastomosis. The stomach is distended with liquid and food stuff despite the patient's history. This also mild to moderate dilatation of the small bowel loops which are predominantly fluid-filled. There is no evidence for disproportionate dilatation or a site of focal obstruction. The findings are most characteristic of an ileus versus gastroenteritis. There are no inflammatory changes present. There is no evidence for free air. Bladder: The bladder is within normal limits with no evidence for focal mass, calculus or diverticulum. : There is no evidence for pelvic mass or adenopathy. There is no evidence for pelvic ascites. Uterus is prominent in size and should be correlated with patient's previous history. Vasculature: There is no evidence for aneurysmal dilatation of the abdominal aorta. Osseous structures: There is no acute osseous pathology. Degenerative changes are seen within the lumbar spine. IMPRESSION: 1. Distended, fluid-filled stomach and mildly to moderately dilated fluid-filled loops of small bowel without evidence for focal obstruction. The findings are most characteristic of an ileus versus gastroenteritis. 3. Additional nonacute findings are delineated above ACT 112: Negative or not required by law. Electronically signed by: Armand Fleming M.D. 09/19/2021 11:18 PM Dictated:09/19/212300 Transcribed: 09/19/212300 Hospital Course (1) Partial small bowel obstruction: Present on admission with abdominal pain associated with nausea CT abd/pelvis showed distended, fluid-filled stomach and mildly to moderately dilated fluid-filled loops of small bowel without evidence for focal obstruction. NG tube was placed on admission Surgery on board NG tube removed Starting on clear liquid diet and advanced to full liquid as tolerated advanced to soft diet, then tolerated Pt is very anxious to go home today Ok from surgery standpoint to discharge home if tolerates soft diet (2) Hypercalcemia: Calcium on admission 11.4 Possible related to dehydration Repeat calcium 9.5 Check calcium in 1 week Hypothyroidism TSH WNL Continue Levothyroxine RAYMUNDO CPAP intolerance Hyperglycemia Most HBA1c 5.8 Continue monitor BS DVT px On Lovenox Code Status Disposition Will discharge home today Total Time Total Time Spent Total Time Spent (In Minutes): 35 minutes Discharge Plan Discharge Items Patient Disposition: Home - Self-Care Reason For Visit: HYPERCALCEMIA Discharge Diagnosis: Partial small bowel obstruction: Hypercalcemia: Hypothyroidism RAYMUNDO Activity: Resume your previous activity Non-emergency contact: Primary Care Provider Call non-emergency contact if: you have any medication questions Follow-up/Referrals: Rosmery Solomon DO [Primary Care Provider] - (Date & Time 09/29/2021 1:40 PM Provider Rosmery Solomon DO Department [facility] ) Diet: Low Fiber Addtl Attending Provider Instructions: Follow up with your primary care provider Dr. Solomon on 09/29/2021 at 1:[address] [facility] Continue soft diet and advanced as tolerated Seek medical attention if symptoms worsening Check calcium level in 1 week Pending Studies at Discharge: No Stand-Alone Forms: My [facility] Emerging Threats, Smoking Cessation Medications and DC Order Prescriptions: Continued spironolactone 100 mg tablet 100 mg PO BID RF: 0 levothyroxine 112 mcg tablet 112 mcg PO DAILYBB RF: 0 linaclotide 290 mcg capsule 290 mcg PO QAM RF: 0 multivitamin Tablet 1 tab PO QAM RF: 0 cyanocobalamin (vitamin B-12) 1,000 mcg/mL solution 1,000 mcg IM .Q2W RF: 0 hydroxyzine HCl 25 mg tablet 25 mg PO QID PRN (Reason: Anxiety) RF: 0 epinephrine 0.3 mg/0.3 mL auto-injector 0.3 mg IM UD RF: 0 buspirone 15 mg tablet 15 mg PO BID RF: 0 No Action bupropion HCl 200 mg tablet sustained-release 12 hr 200 mg PO BID RF: 0 dextroamphetamine-amphetamine 30 mg tablet 30 mg PO BID RF: 0 Discharge Orders: Discharge Order (Routine); Ordered 09/21/21 Ordered By: Chito Cintron Admission Data Admit Date/Time: 09/20/21 01:41 Attending Provider: Chito Cintron Admit Provider: Raad Mariee Primary Care Provider: Rosmery Solomon Other Providers: Vladimir Hernandez ; Raad Mariee ; Edison Hurt Other Interventions: Discharge Summary Assessment (RN) Last Done: 09/21/21 16:24
== END 2021-09-21 18:15 | disposition home or self-care (01) | DRG 390 ==
LOC: ED 20:55 → SUATTDRO 09-20 01:41 → EDINP 09-20 01:41 → 2W 09-20 17:47

== ENCOUNTER 2021-09-22 22:17 | Inpatient (IN) ==
[2021-09-22] MEDS ORDERED: diphenhydrAMINE 50 MG/ML VIAL IV STA (22:31)
[2021-09-22] MEDS ORDERED: FAMOTIDINE 20MG/5ML IV PUSH IV STA (22:31)
[2021-09-22] MEDS ORDERED: DROPERIDOL 5 MG/2 ML VIAL IV STA (22:31)
[2021-09-22] MEDS ORDERED: SODIUM CHLORIDE 0.9% 1000ML 1,000 ML IV STA (22:31)
--- NOTE | 2021-09-22 22:42 | Emergency Department Note ---
History of Present Illness General Chief complaint: Abdominal Pain Stated complaint: BOWEL OBSTRUCTION, ABDOM PAIN, VOMITING Time Seen by Provider: 09/22/21 22:26 History of Present Illness Maximum Pain Intensity: 10 This 46-year-old with a history of multiple small bowel obstructions and abdominal surgeries presents to the ER complaining of upper abdominal pain Location: Upper abdomen Quality: Discomfort Severity: Moderate Duration: Today Timing: Today Context: Patient was concerned and came in Modifying factors: better with rest; worse with palpation Patient denies chest pain, dyspnea, fevers, urinary symptoms, diarrhea. She is moving her bowels minimally. She states she is concerned more about her hernia than the bowel obstruction. Home Medications Medication Instructions Recorded Confirmed Type levothyroxine 112 mcg tablet 112 mcg PO DAILYBB 08/06/18 09/22/21 History linaclotide 290 mcg capsule 290 mcg PO QAM 08/06/18 09/22/21 History multivitamin 1 tab PO QAM 08/06/18 09/22/21 History spironolactone 100 mg tablet 100 mg PO BID 08/06/18 09/22/21 History buspirone 15 mg tablet 15 mg PO BID 09/19/21 09/22/21 History cyanocobalamin (vitamin B-12) 1,000 mcg IM .Q2W 09/19/21 09/22/21 History 1,000 mcg/mL injection solution epinephrine 0.3 mg/0.3 mL 0.3 mg IM UD 09/19/21 09/22/21 History injection, auto-injector hydroxyzine HCl 25 mg tablet 25 mg PO QID PRN 09/19/21 09/22/21 History bupropion HCl 200 mg tablet,12 hr 200 mg PO BID 09/22/21 09/22/21 History sustained-release dextroamphetamine-amphetamine 30 30 mg PO BID 09/22/21 09/22/21 History mg tablet Allergies Allergy/AdvReac Type Severity Reaction Status Date / Time influenza virus vaccine, Allergy Intermediate UNKNOWN - Verified 09/22/21 23:08 specific episodes of sickness/ passing out Iodinated Contrast Media Allergy Intermediate Hives Verified 09/22/21 23:08 Sulfa (Sulfonamide Allergy Intermediate RASH Verified 09/22/21 23:08 Antibiotics) lamotrigine Allergy Mild RASH Verified 09/22/21 23:08 metoclopramide Allergy Mild gittery Verified 09/22/21 23:08 oxycodone AdvReac Unknown Unknown - Verified 09/22/21 23:08 PERCOCET Past Med/Surg History Medical History ADHD (attention deficit hyperactivity disorder) Anxiety Chronic constipation GERD (gastroesophageal reflux disease) Hypothyroidism IBS (irritable bowel syndrome) PCOS (polycystic ovarian syndrome) SBO (small bowel obstruction) "2008, 2011, 2012" On 04/29/16 12:28 Manasa Fuentes wrote "2008. 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 02/18/09 Dr. 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 Beliefs That Will Affect Care: None marital status: Current Living Situation: Spouse current occupational status: employed How many Children do You have: 3 Feels Safe at Home: Yes during the past year weight has: remained stable Assistive Devices: None Review of Systems A total of 10 systems reviewed and were otherwise negative Physical Exam Vital Signs Vital Signs - 24 hr 09/22/21 22:19 09/22/21 23:07 09/23/21 01:30 Temperature 36.7 C Temperature Source Temporal Artery Scan Pulse Rate 117 H Pulse Rate [Right Finger] 89 69 Respiratory Rate 16 20 16 Respiratory Effort / Characteristics Non-Labored Spontaneous Non-Labored Spontaneous Respiratory Depth Normal Normal Respiratory Pattern Regular Blood Pressure 145/91 H Blood Pressure [Right Arm] 151/92 H 117/70 Blood Pressure Mean 109 Blood Pressure Mean [Right Arm] 111 85 Blood Pressure Position [Right Arm] Sitting Pulse Oximetry 98 98 97 Oxygen Delivery Method Room Air Room Air Room Air Sepsis Recent Fever Within 48 Hours No Sepsis New/Unexplained Change in Mental Status No Sepsis Action Taken by Nursing No Action Required VITALS: Vitals are noted on the nurse's note and reviewed by myself. Vital signs stable. GENERAL: White female, in no acute distress, nondiaphoretic, well-developed well-nourished. SKIN: The skin was without rashes, erythema, edema, or bruising. There is no tenting of the skin. Capillary reflex less than 2 seconds. HEAD: Normocephalic atraumatic. EARS: External auditory canals clear, EYES: Pupils equal round and reactive to light and accommodation. Conjunctivae without injection, sclerae without icterus. Extraocular movements intact. NOSE: Patent, turbinates without inflammation or discharge. MOUTH: Mucous membranes moist. Pharynx without erythema or exudate. Uvula midline. Airway patent. Tongue does not deviate. NECK: Supple without nuchal rigidity. No lymphadenopathy. No thyromegaly. Cervical spine is nontender. No JVD. HEART: Regular rate and rhythm LUNGS: Clear to auscultation bilaterally without wheezes, rales or rhonchi. No retractions or accessory muscle use. ABDOMEN: Positive bowel sounds x 4. Normal tympanic percussion. Soft, tender upper abdomen, without masses or organomegaly. Rodas sign negative. No guarding or rebound tenderness. No CVA tenderness MUSCULOSKELETAL: No muscle atrophy, erythema, or edema noted. NEURO: Patient was alert and oriented to person place and time. Normal sensation to light and sharp touch. No focal neurological deficits. Course Administered Medications Discontinued Medications Diphenhydramine HCl (Diphenhydramine 50 Mg/Ml Vial) 25 mg IV NOW STA Stop: 09/22/21 22:32 Last Admin: 09/22/21 22:57 Dose: 25 mg Documented by: [id number] Droperidol (Droperidol 5 Mg/2 Ml Vial) 1.25 mg IV ONE STA Stop: 09/22/21 22:32 Last Admin: 02/16/22 22:55 Dose: 1.25 mg Documented by: [id number] Famotidine (Famotidine 20mg/5ml Iv Push) 20 mg IV ONE STA Stop: 09/22/21 22:32 Last Admin: 09/22/21 22:58 Dose: 20 mg Documented by: [id number] Sodium Chloride (Nss 1000ml) 1,000 mls @ 999 mls/hr IV .Q1H1M STA Stop: 09/22/21 23:31 Last Infusion: 09/23/21 00:00 Dose: 0 mls/hr Documented by: [id number] Admin: 09/22/21 22:59 Dose: 999 mls/hr Documented by: [id number] Ioversol (Optiray 320 100ml) 94 ml IV ONCE ONE Stop: 09/23/21 00:14 Last Admin: 09/23/21 00:14 Dose: 94 ml Documented by: [id number] Ketorolac Tromethamine (Ketorolac Tromethamine 15 Mg/Ml Vial) 10 mg IV NOW STA Stop: 09/23/21 00:57 Last Admin: 09/23/21 01:10 Dose: 10 mg Documented by: [id number] Medical Decision Making Medical Records Attestation: I reviewed the patient's medical records. Home Medications Current Medication List: was personally reviewed by me Laboratory Data Attestation: I reviewed the patient's lab results. Result diagrams: 09/22/21 23:03 09/22/21 23:03 Lab Results 09/22/21 09/22/21 09/22/21 Range/Units 23:03 23:03 23:03 WBC 9.70 (4.8-10.8) K/uL RBC 4.68 (4.2-5.4) M/uL Hgb 13.9 (12.0-16.0) g/dL Hct 42.9 (37-47) % MCV 91.7 (80-100) fL MCH 29.7 (25-34) pg MCHC 32.4 (32-36) g/dL RDW Std Deviation 41.9 (36.4-46.3) fL RDW Coeff of Any 12.5 (11.5-14.5) % Plt Count 337 (130-400) K/uL MPV 9.4 (7.4-10.4) fL Immature Gran % (Auto) 0.1 % Neut % (Auto) 78.5 % Lymph % (Auto) 10.3 % Gove % (Auto) 9.9 % Eos % (Auto) 1.0 % Baso % (Auto) 0.2 % Neut # (Auto) 7.61 H (1.4-6.5) K/uL Lymph # (Auto) 1.00 L (1.2-3.4) K/uL Gove # (Auto) 0.96 H (0.11-0.59) K/uL Eos # (Auto) 0.10 (0-0.5) K/uL Baso # (Auto) 0.02 (0-0.2) K/uL Immature Gran # (Auto) 0.01 (0.00-0.02) K/uL Sodium 136 (136-145) mmol/L Potassium 3.4 L (3.5-5.1) mmol/L Chloride 97 L (98-107) mmol/L Carbon Dioxide 31 (21-32) mmol/L Anion Gap 8 (3-11) BUN 13 (6-23) mg/dl Creatinine 0.96 (0.6-1.2) mg/dl Est Cr Clr Drug Dosing 54.7 ml/min Est GFR ( Amer) 81.6 ml/min Est GFR (Non-Af Amer) 70.4 ml/min BUN/Creatinine Ratio 13.5 (10-20) Glucose 156 H (70-99(Fasting)) mg/dl Calcium 9.5 (8.5-10.1) mg/dl Total Bilirubin 0.3 (0.2-1.0) mg/dl AST 24 (13-39) U/L ALT 23 (7-52) U/L Alkaline Phosphatase 60 (34-104) U/L Total Protein 6.9 (6.0-8.3) gm/dl Albumin 4.3 (3.4-5.0) gm/dl Globulin 2.6 (2.5-4.0) gm/dl Albumin/Globulin Ratio 1.7 (0.9-2) Lipase 8 L (11-82) U/L HCG, Qual Negative (Negative) Urine Color Urine Appearance (Clear) Urine pH (4.5-7.5) Ur Specific Coila (1.000-1.030) Urine Protein (Negative) Urine Glucose (UA) (Negative) Urine Ketones (Negative) Urine Blood (Negative) Urine Nitrite (Negative) Urine Bilirubin (Negative) Urine Urobilinogen (Negative) Ur Leukocyte Esterase (Negative) Urine WBC (Auto) (0-5) /hpf Urine RBC (Auto) (0-4) /hpf U Hyaline Cast (Auto) (0-5) /lpf U Epithel Cells (Auto) (0-5) /lpf Urine Bacteria (Auto) (Negative) SARS-CoV-2, RNA, NAAT (NEGATIVE) 09/22/21 09/23/21 Range/Units 23:03 02:00 WBC (4.8-10.8) K/uL RBC (4.2-5.4) M/uL Hgb (12.0-16.0) g/dL Hct (37-47) % MCV (80-100) fL MCH (25-34) pg MCHC (32-36) g/dL RDW Std Deviation (36.4-46.3) fL RDW Coeff of Any (11.5-14.5) % Plt Count (130-400) K/uL MPV (7.4-10.4) fL Immature Gran % (Auto) % Neut % (Auto) % Lymph % (Auto) % Gove % (Auto) % Eos % (Auto) % Baso % (Auto) % Neut # (Auto) (1.4-6.5) K/uL Lymph # (Auto) (1.2-3.4) K/uL Gove # (Auto) (0.11-0.59) K/uL Eos # (Auto) (0-0.5) K/uL Baso # (Auto) (0-0.2) K/uL Immature Gran # (Auto) (0.00-0.02) K/uL Sodium (136-145) mmol/L Potassium (3.5-5.1) mmol/L Chloride (98-107) mmol/L Carbon Dioxide (21-32) mmol/L Anion Gap (3-11) BUN (6-23) mg/dl Creatinine (0.6-1.2) mg/dl Est Cr Clr Drug Dosing ml/min Est GFR ( Amer) ml/min Est GFR (Non-Af Amer) ml/min BUN/Creatinine Ratio (10-20) Glucose (70-99(Fasting)) mg/dl Calcium (8.5-10.1) mg/dl Total Bilirubin (0.2-1.0) mg/dl AST (13-39) U/L ALT (7-52) U/L Alkaline Phosphatase (34-104) U/L Total Protein (6.0-8.3) gm/dl Albumin (3.4-5.0) gm/dl Globulin (2.5-4.0) gm/dl Albumin/Globulin Ratio (0.9-2) Lipase (11-82) U/L HCG, Qual (Negative) Urine Color Dark Yellow Urine Appearance Clear (Clear) Urine pH 5.5 (4.5-7.5) Ur Specific Coila > 1.045 H (1.000-1.030) Urine Protein 1+ H (Negative) Urine Glucose (UA) Negative (Negative) Urine Ketones Trace H (Negative) Urine Blood Negative (Negative) Urine Nitrite Negative (Negative) Urine Bilirubin Negative (Negative) Urine Urobilinogen Negative (Negative) Ur Leukocyte Esterase Negative (Negative) Urine WBC (Auto) 10-30 H (0-5) /hpf Urine RBC (Auto) 5-10 H (0-4) /hpf U Hyaline Cast (Auto) 10-30 H (0-5) /lpf U Epithel Cells (Auto) >30 H (0-5) /lpf Urine Bacteria (Auto) Negative (Negative) SARS-CoV-2, RNA, NAAT NEGATIVE (NEGATIVE) Imaging Data Attestation: I personally reviewed and interpreted this imaging study as follows: MDM Narrative Prior records/ancillary studies reviewed. Triage Nursing notes reviewed. Additional history obtained from nursing. The patient's history was concerning for abdominal pain. Differential diagnosis: Etiologies such as appendicitis, diverticulitis, PUD, biliary pathology, UTI, pancreatitis, obstruction, mesenteric ischemia, aortic pathology, infections, inflammatory bowel disease, renal colic, as well as others were entertained. Physical examination findings: As above. ER treatment provided: An order was placed for continuous cardiac monitoring. The monitor shows a rate of 60-1 50 with a sinus rhythm. IV fluids, droperidol, Pepcid, Benadryl, Toradol On reassessment the patient felt better. Diagnostics interpreted by me: The labs revealed no worrisome leukocytosis, negative urine Imaging studies: Preliminary Findings Only See Final Report For Complete Findings CT ABDOMEN & PELVIS With Contrast: Prior dated 09/19/21 Colectomy. Ileocolic anastomosis in the pelvis. Mildly dilated small bowel loop proximal to the anastomosis and other mildly distended small bowel loops. Fluid also within the rectum. Findings may represent enteritis or a partial bowel obstruction at the anastomotic site. Short segment intussusception in the left abdomen likely transient phenomenon. No free air, free fluid. Stomach is moderately distended with fluid. Radiologist: Piter Wilhelm M.D. Consultation: A consultation was placed with the hospitalist. The case was discussed and diagnostics were reviewed. The patient was evaluated in the ER for further treatment. Exam and history seem consistent with possible partial bowel obstruction. Patient is requesting admission. Medicine was consulted. They will evaluate for possible admission. By the evaluation outlined above emergent etiologies such as appendicitis, diverticulitis, PUD, biliary pathology, UTI, pancreatitis, mesenteric ischemia, aortic pathology, infections, inflammatory bowel disease, renal colic, as well as others were deemed relatively unlikely. The pt informed about the findings as listed above. All questions were answered and pleased with the treatment. The chart was completed utilizing [employer] Speech voice recognition software. Grammatical errors, random word insertions, pronoun errors, and incomplete sentences are an occassional consequence of this system due to software limitations, ambient noise, and hardware issues. Any formal questions or concerns about the content, text, or information contained within the body of this dictation should be directly addressed to the physician insurance assistant for clarification. Impression & Plan Partial small bowel obstruction Discharge Plan Visit Data Chief Complaint: Abdominal Pain Stated Complaint: BOWEL OBSTRUCTION, ABDOM PAIN, VOMITING ED Provider: Sanchez León ED Midlevel Provider: Fatuma Rivers Discharge Problem: Partial small bowel obstruction Patient Disposition: Being Evaluated by Hospitalist Condition: Good Forms Stand Alone Forms: My [facility] Prescriptions Prescriptions: No Action spironolactone 100 mg tablet 100 mg PO BID RF: 0 levothyroxine 112 mcg tablet 112 mcg PO DAILYBB RF: 0 linaclotide 290 mcg capsule 290 mcg PO QAM RF: 0 multivitamin Tablet 1 tab PO QAM RF: 0 cyanocobalamin (vitamin B-12) 1,000 mcg/mL solution 1,000 mcg IM .Q2W RF: 0 hydroxyzine HCl 25 mg tablet 25 mg PO QID PRN (Reason: Anxiety) RF: 0 epinephrine 0.3 mg/0.3 mL auto-injector 0.3 mg IM UD RF: 0 buspirone 15 mg tablet 15 mg PO BID RF: 0 bupropion HCl 200 mg tablet sustained-release 12 hr 200 mg PO BID RF: 0 dextroamphetamine-amphetamine 30 mg tablet 30 mg PO BID RF: 0 Referrals Referrals: Rosmery Solomon DO [Primary Care Provider] -
[2021-09-22 23:16] LABS: Basophils # (auto) 0.02 K/uL (0-0.2); Basophils % (auto) 0.2 %; Hematocrit (blood only) 42.9 % (37-47); Hemoglobin 13.9 g/dL (12.0-16.0); Immature Granulocytes # (auto) 0.01 K/uL (0.00-0.02); Immature Granulocytes % (auto) 0.1 %; Lymphocytes % (auto) 10.3 %; Mean Corpuscular Hemoglobin 29.7 pg (25-34); Mean Corpuscular Hgb Conc 32.4 g/dL (32-36); Mean Corpuscular Volume 91.7 fL (80-100); Mean Platelet Volume 9.4 fL (7.4-10.4); Monocytes # (auto) 0.96 K/uL (0.11-0.59); Monocytes % (auto) 9.9 %; Neutrophils # (auto) 7.61 K/uL (1.4-6.5); Neutrophils % (auto) 78.5 %; Platelet Count 337 K/uL (130-400); RDW Coefficient of Variation 12.5 % (11.5-14.5); RDW Standard Deviation 41.9 fL (36.4-46.3); Red Blood Count 4.68 M/uL (4.2-5.4)
[2021-09-22 23:27] LABS: Appearance Urine Clear (Clear); Bacteria Urine Automated Negative (Negative); Bilirubin Urine Negative (Negative); Blood Urine Negative (Negative); Color Urine Dark Yellow; Epithelial Cell Urine Auto >30 /lpf (0-5); Glucose Urine UA Negative (Negative); Ketones Urine Trace (Negative); Leukocyte Esterase Urine Negative (Negative); Nitrite Urine Negative (Negative); Protein Urine 1+ (Negative); Specific Gravity Urine > 1.045 (1.000-1.030); Urobilinogen Urine Negative (Negative); pH Urine 5.5 (4.5-7.5)
[2021-09-22 23:38] LABS: Pregnancy Test, Serum Negative (Negative)
[2021-09-22 23:40] LABS: Albumin Globulin Ratio 1.7 (0.9-2); Albumin Level 4.3 gm/dl (3.4-5.0); BUN Creatinine Ratio 13.5 (10-20); Bilirubin,Total 0.3 mg/dl (0.2-1.0); Calcium 9.5 mg/dl (8.5-10.1); Creatinine Clr Calc Pharmacy 54.7 ml/min; Est GFR (African American) 81.6 ml/min; Est GFR (Non-African American) 70.4 ml/min; Globulin 2.6 gm/dl (2.5-4.0); Potassium 3.4 mmol/L (3.5-5.1); Total Protein 6.9 gm/dl (6.0-8.3)
[2021-09-23] MEDS ORDERED: OPTIRAY 320 100ml IV ONE (00:13)
[2021-09-23] MEDS ORDERED: KETOROLAC TROMETHAMINE 15 MG/ML VIAL IV STA (00:56)
[2021-09-23] MEDS ORDERED: POTASSIUM CHLORIDE / WTR 10 MEQ/100 ML PLCT IV STA (03:37)
[2021-09-23] MEDS ORDERED: EPINEPHrine INJ 1 MG/ML AMP IM PRN (05:00)
[2021-09-23] MEDS: D5W AND NSS 1,000 ML IV SCH ×3 (05:42→17:11)
--- NOTE | 2021-09-23 05:43 | History and Physical Report ---
DATE OF ADMISSION: 09/23/2021. CHIEF COMPLAINT: Abdominal pain. HISTORY OF PRESENT ILLNESS: This is a 46-year-old female with past medical history significant for history of colonic inertia, status post bowel resection, history of recurrent bowel obstruction, history of IBS, constipation predominant, GERD, hypothyroidism, obstructive sleep apnea, CPAP intolerance, ADHD, anxiety disorder, panic disorder, polycystic ovary syndrome, who presents with abdominal pain. The patient was recently here with abdominal pain, treated for partial small-bowel obstruction with conservative measures. Improved, and she was started on liquid diet and she got discharged. The patient after going home generally she gets better, but at this time she did not get better, the pain started getting worse. Nausea, vomiting, she was not able to eat anything, so she came to the hospital. Her last bowel movement was in the afternoon. With pain medication, the pain is under control. Complains of pain mostly in the epigastric region. Currently, hemodynamically stable. Denies any headache, no dizziness, no blurred vision, no earache, no runny nose, no sore throat, no cough, no chest pain, no shortness of breath. No blood in the stools or black stools. Normal bladder movements. Ambulating okay. ALLERGIES: INFLUENZA VACCINE, IODINATED CONTRAST MEDIA, SULFA ANTIBIOTICS, LAMOTRIGINE, METOCLOPRAMIDE, OXYCODONE UNKNOWN. PAST MEDICAL HISTORY: As mentioned above. PAST SURGICAL HISTORY: Colonoscopy with biopsy, EGDs, enlargement of breast with implants, freeing of all adhesions, colectomy total with ileostomy, small bowel endoscopy with biopsies, TMJ bilaterally. MEDICATIONS: The patient is on bupropion 200 mg p.o. b.i.d., buspirone 15 mg p.o. b.i.d., vitamin B12 1000 mcg IM q. weekly, Adderall 30 mg p.o. b.i.d., epinephrine 0.3 mg IM p.r.n., hydroxyzine 25 mg p.o. q.i.d. p.r.n., levothyroxine 112 mcg p.o. daily, linzess 290 mcg p.o. a.m., multivitamin 1 tablet p.o. a.m., spironolactone 100 mg p.o. b.i.d. FAMILY HISTORY: Significant for mother has asthma, MS; sister has cervical cancer; paternal grandmother had throat cancer; paternal grandfather had colon cancer and heart disorder. SOCIAL HISTORY: Lives with her family. No smoking. Alcohol, social. No drug use. REVIEW OF SYSTEMS: As per HPI. Rest of the review of systems is negative. PHYSICAL EXAMINATION: GENERAL: The patient is of moderate build, not in acute distress. VITAL SIGNS: Temperature 36.7, pulse 69, respiratory rate 16, blood pressure 117/70, oxygen 97% on room air. HEENT: Pupils equal, round and reactive to light. Oral mucosa dry. NECK: No JVD, no neck masses. CARDIOVASCULAR: S1 and S2 heard. Regular rate and rhythm. No murmur, no gallop. RESPIRATORY SYSTEM: Normal AP diameter. No accessory muscle use. No wheezing, no crackles. ABDOMEN: Soft, bowel sounds sluggish. Mild discomfort mostly in the epigastric region. Mild guarding, no rigidity, no distention. CENTRAL NERVOUS SYSTEM: Cranial nerves II through XII are grossly intact, nonfocal. EXTREMITIES: No edema, no erythema. LABORATORY DATA: WBC 9.7, hemoglobin 13.9, hematocrit 42.9, platelets 337. Sodium 136, potassium 3.4, chloride 97, bicarbonate 31, BUN 13, creatinine 0.9, serum glucose 156, calcium 9.5, total bilirubin 0.3, AST 24, ALT 23, alkaline phosphatase 60, lipase 8. HCG qualitative negative. Urinalysis, trace ketones. SARS-CoV-2 negative. IMAGING DATA: CT of abdomen and pelvis, preliminary report shows ileocolic anastomosis in the pelvis, mildly dilated small bowel loops proximal to the anastomosis, and other mildly distended small bowel loops. Fluids also within the rectum. Findings may represent enteritis or partial bowel obstruction at the anastomotic site. Short segment intussusception in the left abdomen, likely transient phenomenon. No free air or free fluid. Stomach is moderately distended with fluid. ASSESSMENT AND PLAN: This 46-year-old female presents with abdominal pain and found to have recurrent small bowel obstruction. 1. Recurrent partial small bowel obstruction: The patient currently declines NG tube, but if the symptoms get worse she is okay for NG tube. Pain control with IV Dilaudid p.r.n. IV fluids. N.p.o. except meds, and monitor in the medical floor. Consult general surgery. 2. History of anxiety, panic disorder, attention deficit hyperactivity disorder, mood disorder: Continue her home medications if able to take p.o. 3. History of irritable bowel syndrome, chronic constipation. Will hold linzess for now. 4. Hypothyroidism: Continue Synthroid if able to take p.o. 5. Gastroesophageal reflux disease: Having epigastric pain. placed on IV Protonix b.i.d. 6. History of sleep apnea, nontolerant with CPAP. Will monitor oxygen levels. 7. Hypercalcemia: It was present in the last admission, but it resolved. Mostly secondary to dehydration. Currently, today's calcium levels are normal at 9.5. 8. Hypokalemia, potassium of 3.4, will replace. 9. Deep venous thrombosis prophylaxis: Lovenox. DISPOSITION: Closely monitor in the medical floor. Expect to discharge home and follow with family doctor. Job ID: [id number] JESSIKA
[2021-09-23 07:27] LABS: Basophils # (auto) 0.01 K/uL (0-0.2); Basophils % (auto) 0.1 %; Eosinophils # (auto) 0.13 K/uL (0-0.5); Eosinophils % (auto) 1.9 %; Hematocrit (blood only) 38.7 % (37-47); Hemoglobin 12.5 g/dL (12.0-16.0); Lymphocytes # (auto) 1.41 K/uL (1.2-3.4); Lymphocytes % (auto) 20.7 %; Mean Corpuscular Hemoglobin 29.8 pg (25-34); Mean Corpuscular Hgb Conc 32.3 g/dL (32-36); Mean Corpuscular Volume 92.4 fL (80-100); Mean Platelet Volume 8.9 fL (7.4-10.4); Monocytes % (auto) 10.3 %; Neutrophils # (auto) 4.56 K/uL (1.4-6.5); Platelet Count 285 K/uL (130-400); RDW Coefficient of Variation 12.7 % (11.5-14.5); RDW Standard Deviation 42.8 fL (36.4-46.3); Red Blood Count 4.19 M/uL (4.2-5.4); White Blood Count 6.81 K/uL (4.8-10.8)
[2021-09-23] MEDS: LEVOTHYROXINE SODIUM 112 MCG TABLET PO SCH (07:43)
[2021-09-23 07:55] LABS: BUN Creatinine Ratio 11.2 (10-20); Calcium 8.2 mg/dl (8.5-10.1); Creatinine Clr Calc Pharmacy 53.6 ml/min; Est GFR (African American) 79.6 ml/min; Est GFR (Non-African American) 68.7 ml/min; Magnesium 1.6 mg/dl (1.7-2.4)
--- NOTE | 2021-09-23 08:13 | CT Scan Report ---
CT abd pelvis IV con only CLINICAL HISTORY: severe upper abd pain, hx sbo and hernias COMPARISON STUDY: 09/19/2021 CT DOSE: 272.33 mGy.cm TECHNIQUE: Standard CT of the Abdomen and Pelvis was performed with IV contrast. A dose lowering shyam hnique was utilized adhering to the principles of ALARA. Contrast Volume: Optiray 320, 94 ml. The patient did not receive oral contrast. FINDINGS: Lung base: The lung bases are clear. Abdominal cavity: There is no evidence for abdominal mass, adenopathy or ascites. Liver: There is homogeneous attenuation of the liver parenchyma. There is no evidence for enhancing m ass lesion. Spleen: There is homogeneous attenuation of the splenic parenchyma. There is no enhancing mass lesion . Pancreas: There is homogeneous attenuation of the pancreatic parenchyma. There is no evidence for mas s lesion or peripancreatic fluid collection. Gall Bladder: The gallbladder is well distended with no evidence for intraluminal calculi, wall thick ening or pericholecystic edema. Adrenal glands: The adrenal glands are normal in size and attenuation. There is no evidence for enhan cing mass lesion. Kidneys: There is homogeneous attenuation of the renal parenchyma bilaterally. There is no evidence f or renal calculus or hydronephrosis. There is no evidence for enhancing mass. Bowel: Compared to the previous examination, the patient is again status post resection of the majori ty of the colon with ileocolonic anastomosis. Compared to the recent study, there is increased dilata tion of fluid-filled loops of small bowel throughout the abdomen and pelvis. The stomach is again dis tended with fluid. However, the colon is also distended and fluid-filled with no evidence for gross o bstruction. There is narrowing at the site of the anastomosis with the findings characteristic of chr onic small bowel pseudoobstruction. The overall findings are still most characteristic of ileus versu s gastroenteritis.. There is no evidence for mass lesion. There are no inflammatory changes present. There is no evidence for free air. Bladder: The bladder is within normal limits with no evidence for focal mass, calculus or diverticulu m. : There is no evidence for pelvic mass or adenopathy. There is no evidence for pelvic ascites. Ther e is again enlargement of the uterus. Vasculature: There is no evidence for aneurysmal dilatation of the abdominal aorta. Osseous structures: There is no acute osseous pathology. Degenerative changes are again seen within t he spine. IMPRESSION: 1. Compared to the previous study, there are now mildly dilated fluid-filled loops of small bowel thr oughout the abdomen and pelvis to the level of the ileocolonic anastomosis. However, the colon distal to this site is distended and fluid-filled as well. 2. The findings are most characteristic of a chronic small bowel pseudoobstruction related to the tig ht anastomosis. No gross small bowel obstruction is seen. The overall findings are again most charact eristic of an ileus versus gastroenteritis. ACT 112: Negative or not required by law. Electronically signed by: Armand Fleming M.D. 09/23/2021 8:11 AM
[2021-09-23] MEDS: HYDROmorphone INJ 0.5 MG/0.5 ML SYR IV PRN ×2 (08:37→20:18)
[2021-09-23] MEDS: ONDANSETRON INJ 2 MG/ML 2 ML VIAL IV PRN (08:37)
[2021-09-23] MEDS: buPROPion SR 100 MG TABCR PO SCH ×2 (08:43→20:13)
[2021-09-23] MEDS: busPIRone 15 MG TAB PO SCH ×2 (08:44→20:13)
[2021-09-23] MEDS: ENOXAPARIN INJ 40 MG/0.4 ML SYR SQ SCH (08:45)
[2021-09-23] MEDS: PANTOprazole 40 MG in SYRINGE 0 ML IV SCH ×2 (08:45→20:14)
[2021-09-23] MEDS ORDERED: SPIRONOLACTONE 100 MG TAB PO SCH (09:00)
[2021-09-23] MEDS: AMPHETAMINE ASP/SULF/DEXTRAMPH 10 MG TAB PO SCH ×2 (09:05→20:12)
[2021-09-23] MEDS: MAGNESIUM SULFATE / D5W 1 GM/100 ML BAG IV SCH ×2 (09:07→13:35)
--- NOTE | 2021-09-23 10:32 | Surgery Consultation ---
Date of Consultation September 23, 2021 Assessment & Plan (1) Intractable abdominal pain: (2) Gastroenteritis: (3) Partial small bowel obstruction: (4) Abdominal wall hernia: 46 year-old female with history of colonic resection in 2007 and recurrent SBO with recent admission from 09/20/21-09/21/21 for likely gastroenteritis/ileus and required NGT for decompression. Improved but pain reoccurred at home and presented back to emergency department. CT scan today is showing small bowel and large bowel dilatation which is increased compared to prior CT scan on 09/19/21. Again favoring ileus/gastroenteritis. 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 No leukocytosis, afebrile. Abdomen is soft, nondistended, no peritonitis. She does have a small epigastric hernia and she believes this is cause of her pain but CT scan is not showing any signs of hernia (likely given very small size) or concern for site of an obstruction at an abdominal wall hernia. Plan: No acute surgical intervention at this time Would recommend conservative measures: NPO for bowel rest, IV fluids, pain management as needed (try to limit narcotics), IV antiemetics as needed. She may need slow advancement of diet as she recently had diet advancement and pain/n/v returned. Reached out to [place] surgery as Dr. hurt follows for hernia, no plan for surgery now for hernia given CT scan findings, can follow-up as outpatient for hernia repair replace magnesium encourage ambulation to increase GI motility Would recommend NGT if there is any vomiting as patient elected against NGT in ED Dr. Menjivar has seen and examined pt, agrees with above. History of Present Illness Reason for Consultation: partial SBO Requesting Physician: Dr. 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 and recurrent SBO who was just recently admitted to hospital from 09/20/21-09/21/2021 with abdominal pain and nausea who was found to have dilated stomach and small bowel on CT scan likely representing ileus vs gastroenteritis as there was no focal obstruction. She had NGT placed and then clinically improved and was discharged home however she states she started having pain again with nausea and vomiting and was unable to keep liquids down. States she tried everything OTC including gasX which did not help. Upon further questioning she states that usually her abdominal pain with her bowel obstructions is lower and her pain is mostly in the upper mid abdomen at site of her known hernia. States she follows with Dr. Hurt for this hernia and possibly going to have it repaired. She had a repeat CT scan here in ED and the final report was pending at time of examination. Upon examination she is lying in bed, no acute distress but looks uncomfortable. Pain mostly in upper abdomen. States she just had a bowel movement here in the ED and passing gas. Allergies Allergy/AdvReac Type Severity Reaction Status Date / Time influenza virus vaccine, Allergy Intermediate UNKNOWN - Verified 09/22/21 23:08 specific episodes of sickness/ passing out Iodinated Contrast Media Allergy Intermediate Hives Verified 09/22/21 23:08 Sulfa (Sulfonamide Allergy Intermediate RASH Verified 09/22/21 23:08 Antibiotics) lamotrigine Allergy Mild RASH Verified 09/22/21 23:08 metoclopramide Allergy Mild gittery Verified 09/22/21 23:08 oxycodone AdvReac Unknown Unknown - Verified 09/22/21 23:08 PERCOCET Home Medications Medication Instructions Recorded Confirmed Type levothyroxine 112 mcg tablet 112 mcg PO DAILYBB 08/06/18 09/22/21 History linaclotide 290 mcg capsule 290 mcg PO QAM 08/06/18 09/22/21 History multivitamin 1 tab PO QAM 08/06/18 09/22/21 History spironolactone 100 mg tablet 100 mg PO BID 08/06/18 09/22/21 History buspirone 15 mg tablet 15 mg PO BID 09/19/21 09/22/21 History cyanocobalamin (vitamin B-12) 1,000 mcg IM .Q2W 09/19/21 09/22/21 History 1,000 mcg/mL injection solution epinephrine 0.3 mg/0.3 mL 0.3 mg IM UD 09/19/21 09/22/21 History injection, auto-injector hydroxyzine HCl 25 mg tablet 25 mg PO QID PRN 09/19/21 09/22/21 History bupropion HCl 200 mg tablet,12 hr 200 mg PO BID 09/22/21 09/22/21 History sustained-release dextroamphetamine-amphetamine 30 30 mg PO BID 09/22/21 09/22/21 History mg tablet Patient History Medical History ADHD (attention deficit hyperactivity disorder) Anxiety Chronic constipation GERD (gastroesophageal reflux disease) Hypothyroidism IBS (irritable bowel syndrome) PCOS (polycystic ovarian syndrome) SBO (small bowel obstruction) "2008, 2011, 2012" On 04/29/16 12:28 Manasa Fuentes wrote "2008. 2012" Surgical History H/O colectomy "2007 - due to motility issues subtotal colectomy with ileorectal anastomosis " H/O exploratory laparotomy (02/18/09) Exploratory laparotomy with lysis of adhesions. 02/18/09 Dr. Hurt for SBO H/O: Hx of breast augmentation (09/13/17) dual plane 3; Natrelle Inspira SSX 375 cc Hx of tonsillectomy S/P scar revision (06/27/17) revision midline abdominal scar Family History Grandmother (Paternal) Cancer Stroke Grandfather (Paternal) Diabetes Heart disease Other Colon cancer Multiple sclerosis Ovarian cancer Thyroid disorder Social History Smoking Status: Never smoker Second Hand Exposure: No; Do You Dip or Chew Tobacco: No; Tobacco Cessation Education Requested by Patient: No Hx Alcohol Use: Yes Alcohol type: wine Alcohol Intake Frequency: 2-4 x/Month Hx Substance Use: No Preferred Language: Barbadian Communication Ability: Effective Legal Records Manager Required: No Beliefs That Will Affect Care: None marital status: Current Living Situation: Spouse current occupational status: employed How many Children do You have: 3 Other Information That Helps Us Care for You: No Feels Safe at Home: Yes during the past year weight has: remained stable Assistive Devices: None Physical Exam Constitutional: WD/WN, vitals as above cooperative; no acute distress and not ill appearing Neck: normal visual inspection and trachea midline Respiratory: normal respiratory effort; no respiratory distress Gastrointestinal (Abdomen): Inspection/Auscultation: abdomen normal to inspection and + abdominal surgical scar (mildline laparotomy scar present); abdomen not distended Percussion/Palpation: + abdomen tender (epigastrium) and abdomen soft; no guarding and abdomen not rigid Skin: no rashes, warm and dry Psychiatric: Orientation: alert and oriented x 3 Results & Data ([facility]) Vital Signs (Past 12 Hours) Vital Signs Temp Pulse Pulse Resp BP BP Pulse Ox 09/23/21 10:00 73 16 97/60 L 94 09/23/21 09:30 68 13 95/58 L 94 09/23/21 09:00 75 14 121/68 95 09/23/21 08:56 36.6 C 78 20 145/82 H 97 09/23/21 08:30 79 17 09/23/21 08:00 66 17 09/23/21 07:30 65 14 116/69 93 09/23/21 07:00 73 13 110/73 94 09/23/21 06:30 72 15 112/71 97 09/23/21 06:00 70 15 102/68 96 09/23/21 05:30 75 18 133/67 96 09/23/21 05:00 70 17 103/72 93 09/23/21 04:30 69 16 113/61 95 09/23/21 04:00 72 17 106/71 93 09/23/21 03:35 80 16 112/72 95 09/23/21 03:30 65 15 112/72 93 09/23/21 03:00 87 21 115/85 96 09/23/21 02:30 69 14 130/66 97 09/23/21 02:00 70 13 108/65 98 09/23/21 01:30 76 69 16 117/70 117/70 96 09/23/21 01:00 74 16 107/68 96 09/23/21 00:30 69 15 113/77 98 09/22/21 23:07 89 20 151/92 H 98 Laboratory Results 09/23/21 09/23/21 09/23/21 Range/Units 07:15 07:15 02:00 WBC 6.81 (4.8-10.8) K/uL RBC 4.19 L (4.2-5.4) M/uL Hgb 12.5 (12.0-16.0) g/dL Hct 38.7 (37-47) % MCV 92.4 (80-100) fL MCH 29.8 (25-34) pg MCHC 32.3 (32-36) g/dL RDW Std Deviation 42.8 (36.4-46.3) fL RDW Coeff of Any 12.7 (11.5-14.5) % Plt Count 285 (130-400) K/uL MPV 8.9 (7.4-10.4) fL Immature Gran % (Auto) 0.0 % Neut % (Auto) 67.0 % Lymph % (Auto) 20.7 % [place] % (Auto) 10.3 % Eos % (Auto) 1.9 % Baso % (Auto) 0.1 % Neut # (Auto) 4.56 (1.4-6.5) K/uL Lymph # (Auto) 1.41 (1.2-3.4) K/uL [place] # (Auto) 0.70 H (0.11-0.59) K/uL Eos # (Auto) 0.13 (0-0.5) K/uL Baso # (Auto) 0.01 (0-0.2) K/uL Immature Gran # (Auto) 0.00 (0.00-0.02) K/uL Sodium 136 (136-145) mmol/L Potassium 4.0 (3.5-5.1) mmol/L Chloride 105 (98-107) mmol/L Carbon Dioxide 28 (21-32) mmol/L Anion Gap 3 (3-11) BUN 11 (6-23) mg/dl Creatinine 0.98 (0.6-1.2) mg/dl Est Cr Clr Drug Dosing 53.6 ml/min Est GFR ( Amer) 79.6 ml/min Est GFR (Non-Af Amer) 68.7 ml/min BUN/Creatinine Ratio 11.2 (10-20) Glucose 125 H (70-99(Fasting)) mg/dl Calcium 8.2 L (8.5-10.1) mg/dl Magnesium 1.6 L (1.7-2.4) mg/dl Total Bilirubin (0.2-1.0) mg/dl AST (13-39) U/L ALT (7-52) U/L Alkaline Phosphatase (34-104) U/L Total Protein (6.0-8.3) gm/dl Albumin (3.4-5.0) gm/dl Globulin (2.5-4.0) gm/dl Albumin/Globulin Ratio (0.9-2) Lipase (11-82) U/L HCG, Qual (Negative) Urine Color Urine Appearance (Clear) Urine pH (4.5-7.5) Ur Specific [place] (1.000-1.030) Urine Protein (Negative) Urine Glucose (UA) (Negative) Urine Ketones (Negative) Urine Blood (Negative) Urine Nitrite (Negative) Urine Bilirubin (Negative) Urine Urobilinogen (Negative) Ur Leukocyte Esterase (Negative) Urine WBC (Auto) (0-5) /hpf Urine RBC (Auto) (0-4) /hpf U Hyaline Cast (Auto) (0-5) /lpf U Epithel Cells (Auto) (0-5) /lpf Urine Bacteria (Auto) (Negative) SARS-CoV-2, RNA, NAAT NEGATIVE (NEGATIVE) 09/22/21 09/22/21 09/22/21 Range/Units 23:03 23:03 23:03 WBC (4.8-10.8) K/uL RBC (4.2-5.4) M/uL Hgb (12.0-16.0) g/dL Hct (37-47) % MCV (80-100) fL MCH (25-34) pg MCHC (32-36) g/dL RDW Std Deviation (36.4-46.3) fL RDW Coeff of Any (11.5-14.5) % Plt Count (130-400) K/uL MPV (7.4-10.4) fL Immature Gran % (Auto) % Neut % (Auto) % Lymph % (Auto) % [place] % (Auto) % Eos % (Auto) % Baso % (Auto) % Neut # (Auto) (1.4-6.5) K/uL Lymph # (Auto) (1.2-3.4) K/uL [place] # (Auto) (0.11-0.59) K/uL Eos # (Auto) (0-0.5) K/uL Baso # (Auto) (0-0.2) K/uL Immature Gran # (Auto) (0.00-0.02) K/uL Sodium 136 (136-145) mmol/L Potassium 3.4 L (3.5-5.1) mmol/L Chloride 97 L (98-107) mmol/L Carbon Dioxide 31 (21-32) mmol/L Anion Gap 8 (3-11) BUN 13 (6-23) mg/dl Creatinine 0.96 (0.6-1.2) mg/dl Est Cr Clr Drug Dosing 54.7 ml/min Est GFR ( Amer) 81.6 ml/min Est GFR (Non-Af Amer) 70.4 ml/min BUN/Creatinine Ratio 13.5 (10-20) Glucose 156 H (70-99(Fasting)) mg/dl Calcium 9.5 (8.5-10.1) mg/dl Magnesium (1.7-2.4) mg/dl Total Bilirubin 0.3 (0.2-1.0) mg/dl AST 24 (13-39) U/L ALT 23 (7-52) U/L Alkaline Phosphatase 60 (34-104) U/L Total Protein 6.9 (6.0-8.3) gm/dl Albumin 4.3 (3.4-5.0) gm/dl Globulin 2.6 (2.5-4.0) gm/dl Albumin/Globulin Ratio 1.7 (0.9-2) Lipase 8 L (11-82) U/L HCG, Qual Negative (Negative) Urine Color Dark Yellow Urine Appearance Clear (Clear) Urine pH 5.5 (4.5-7.5) Ur Specific [place] > 1.045 H (1.000-1.030) Urine Protein 1+ H (Negative) Urine Glucose (UA) Negative (Negative) Urine Ketones Trace H (Negative) Urine Blood Negative (Negative) Urine Nitrite Negative (Negative) Urine Bilirubin Negative (Negative) Urine Urobilinogen Negative (Negative) Ur Leukocyte Esterase Negative (Negative) Urine WBC (Auto) 10-30 H (0-5) /hpf Urine RBC (Auto) 5-10 H (0-4) /hpf U Hyaline Cast (Auto) 10-30 H (0-5) /lpf U Epithel Cells (Auto) >30 H (0-5) /lpf Urine Bacteria (Auto) Negative (Negative) SARS-CoV-2, RNA, NAAT (NEGATIVE) 09/22/21 Range/Units 23:03 WBC 9.70 (4.8-10.8) K/uL RBC 4.68 (4.2-5.4) M/uL Hgb 13.9 (12.0-16.0) g/dL Hct 42.9 (37-47) % MCV 91.7 (80-100) fL MCH 29.7 (25-34) pg MCHC 32.4 (32-36) g/dL RDW Std Deviation 41.9 (36.4-46.3) fL RDW Coeff of Any 12.5 (11.5-14.5) % Plt Count 337 (130-400) K/uL MPV 9.4 (7.4-10.4) fL Immature Gran % (Auto) 0.1 % Neut % (Auto) 78.5 % Lymph % (Auto) 10.3 % [place] % (Auto) 9.9 % Eos % (Auto) 1.0 % Baso % (Auto) 0.2 % Neut # (Auto) 7.61 H (1.4-6.5) K/uL Lymph # (Auto) 1.00 L (1.2-3.4) K/uL [place] # (Auto) 0.96 H (0.11-0.59) K/uL Eos # (Auto) 0.10 (0-0.5) K/uL Baso # (Auto) 0.02 (0-0.2) K/uL Immature Gran # (Auto) 0.01 (0.00-0.02) K/uL Sodium (136-145) mmol/L Potassium (3.5-5.1) mmol/L Chloride (98-107) mmol/L Carbon Dioxide (21-32) mmol/L Anion Gap (3-11) BUN (6-23) mg/dl Creatinine (0.6-1.2) mg/dl Est Cr Clr Drug Dosing ml/min Est GFR ( Amer) ml/min Est GFR (Non-Af Amer) ml/min BUN/Creatinine Ratio (10-20) Glucose (70-99(Fasting)) mg/dl Calcium (8.5-10.1) mg/dl Magnesium (1.7-2.4) mg/dl Total Bilirubin (0.2-1.0) mg/dl AST (13-39) U/L ALT (7-52) U/L Alkaline Phosphatase (34-104) U/L Total Protein (6.0-8.3) gm/dl Albumin (3.4-5.0) gm/dl Globulin (2.5-4.0) gm/dl Albumin/Globulin Ratio (0.9-2) Lipase (11-82) U/L HCG, Qual (Negative) Urine Color Urine Appearance (Clear) Urine pH (4.5-7.5) Ur Specific [place] (1.000-1.030) Urine Protein (Negative) Urine Glucose (UA) (Negative) Urine Ketones (Negative) Urine Blood (Negative) Urine Nitrite (Negative) Urine Bilirubin (Negative) Urine Urobilinogen (Negative) Ur Leukocyte Esterase (Negative) Urine WBC (Auto) (0-5) /hpf Urine RBC (Auto) (0-4) /hpf U Hyaline Cast (Auto) (0-5) /lpf U Epithel Cells (Auto) (0-5) /lpf Urine Bacteria (Auto) (Negative) SARS-CoV-2, RNA, NAAT (NEGATIVE) Diagnostic Findings CT abd pelvis IV con only CLINICAL HISTORY: severe upper abd pain, hx sbo and hernias COMPARISON STUDY: 09/19/2021 CT DOSE: 272.33 mGy.cm TECHNIQUE: Standard CT of the Abdomen and Pelvis was performed with IV contrast. A dose lowering technique was utilized adhering to the principles of ALARA. Contrast Volume: Optiray 320, 94 ml. The patient did not receive oral contrast. FINDINGS: Lung base: The lung bases are clear. Abdominal cavity: There is no evidence for abdominal mass, adenopathy or ascites. Liver: There is homogeneous attenuation of the liver parenchyma. There is no evidence for enhancing mass lesion. Spleen: There is homogeneous attenuation of the splenic parenchyma. There is no enhancing mass lesion. Pancreas: There is homogeneous attenuation of the pancreatic parenchyma. There is no evidence for mass lesion or peripancreatic fluid collection. Gall Bladder: The gallbladder is well distended with no evidence for intraluminal calculi, wall thickening or pericholecystic edema. Adrenal glands: The adrenal glands are normal in size and attenuation. There is no evidence for enhancing mass lesion. Kidneys: There is homogeneous attenuation of the renal parenchyma bilaterally. There is no evidence for renal calculus or hydronephrosis. There is no evidence for enhancing mass. Bowel: Compared to the previous examination, the patient is again status post resection of the majority of the colon with ileocolonic anastomosis. Compared to the recent study, there is increased dilatation of fluid-filled loops of small bowel throughout the abdomen and pelvis. The stomach is again distended with fluid. However, the colon is also distended and fluid-filled with no evidence for gross obstruction. There is narrowing at the site of the anastomosis with the findings characteristic of chronic small bowel pseudoobstruction. The overall findings are still most characteristic of ileus versus gastroenteritis.. There is no evidence for mass lesion. There are no inflammatory changes present. There is no evidence for free air. Bladder: The bladder is within normal limits with no evidence for focal mass, calculus or diverticulum. : There is no evidence for pelvic mass or adenopathy. There is no evidence for pelvic ascites. There is again enlargement of the uterus. Vasculature: There is no evidence for aneurysmal dilatation of the abdominal aorta. Osseous structures: There is no acute osseous pathology. Degenerative changes are again seen within the spine. IMPRESSION: 1. Compared to the previous study, there are now mildly dilated fluid-filled loops of small bowel throughout the abdomen and pelvis to the level of the ileocolonic anastomosis. However, the colon distal to this site is distended and fluid-filled as well. 2. 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 No gross small bowel obstruction is seen. The overall findings are again most characteristic of an ileus versus gastroenteritis. CT abd pelvis IV con only 09/19/2021 CLINICAL HISTORY: upper abdominal pain, vomiting COMPARISON STUDY: 06/08/2021 CT DOSE: 252.14 mGy.cm TECHNIQUE: Standard CT of the Abdomen and Pelvis was performed with IV contrast. A dose lowering technique was utilized adhering to the principles of ALARA. Contrast Volume: Optiray 320, 90 ml. The patient did not receive oral contrast. FINDINGS: Lung base: The lung bases are clear. Abdominal cavity: There is no evidence for abdominal mass, adenopathy or ascites. Liver: There is homogeneous attenuation of the liver parenchyma. There is no evidence for enhancing mass lesion. Spleen: There is homogeneous attenuation of the splenic parenchyma. There is no enhancing mass lesion. Pancreas: There is homogeneous attenuation of the pancreatic parenchyma. There is no evidence for mass lesion or peripancreatic fluid collection. Gall Bladder: The gallbladder is well distended with no evidence for intralumin al calculi, wall thickening or pericholecystic edema. Adrenal glands: The adrenal glands are normal in size and attenuation. There is no evidence for enhancing mass lesion. Kidneys: There is homogeneous attenuation of the renal parenchyma bilaterally. There is no evidence for renal calculus or hydronephrosis. There is no evidence for enhancing mass. Bowel: The patient is again status post near-total colectomy with ileocolonic anastomosis. The stomach is distended with liquid and food stuff despite the patient's history. This also mild to moderate dilatation of the small bowel loops which are predominantly fluid-filled. There is no evidence for disproportionate dilatation or a site of focal obstruction. The findings are most characteristic of an ileus versus gastroenteritis. There are no inflammatory changes present. There is no evidence for free air. Bladder: The bladder is within normal limits with no evidence for focal mass, calculus or diverticulum. : There is no evidence for pelvic mass or adenopathy. There is no evidence for pelvic ascites. Uterus is prominent in size and should be correlated with patient's previous history. Vasculature: There is no evidence for aneurysmal dilatation of the abdominal aorta. Osseous structures: There is no acute osseous pathology. Degenerative changes are seen within the lumbar spine. IMPRESSION: 1. Distended, fluid-filled stomach and mildly to moderately dilated fluid-filled loops of small bowel without evidence for focal obstruction. The findings are most characteristic of an ileus versus gastroenteritis. 3. Additional nonacute findings are delineated above
[2021-09-23] MEDS ORDERED: ACETAMINOPHEN 325 MG TAB PO PRN (10:35)
[2021-09-23] MEDS ORDERED: PIPERACILL/TAZOBAC CONSULT ACTIVE PRN (18:30)
--- NOTE | 2021-09-23 18:31 | Hospitalist Progress Note ---
Date of Service September 23, 2021 Assessment & Plan (1) Partial small bowel obstruction: Plan: ASSESSMENT AND PLAN: This 46-year-old female presents with abdominal pain and found to have recurrent small bowel obstruction. 1. Recurrent partial small bowel obstruction seems to be improving today CT abdomen/pelvis noted sips, ice chips, popsicles Gen Surg on board start Zosyn for possible component of gastroenteritis continue IV fluids 2. History of anxiety, panic disorder, attention deficit hyperactivity disorder, mood disorder: continue home medication 3. History of irritable bowel syndrome, chronic constipation. Will hold linzess for now. 4. Hypothyroidism: Continue Synthroid if able to take p.o. 5. Gastroesophageal reflux disease: IV Protonix b.i.d. 6. History of sleep apnea, nontolerant with CPAP. 7. Hypercalcemia: normal now 8. Hypokalemia, potassium of 3.4, will replace. 9. Deep venous thrombosis prophylaxis: Lovenox. DISPOSITION: d/c home when medically stable Admission and Anticipated Discharge Date Admission Date: September 23, 2021 Subjective ff up for bowel obstruction, etc seen with RN at bedside in good spirits, appears comfortable states she feels that she is improving (+) multiple BMs today, loose, 6 x no blood abdominal pain improving tolerating sips of water, some popsicle (per patient request) no chest pain, dyspnea, palpitations, dizziness no other symptoms Review of Systems Review of Systems: all noted and negative except for above Physical Exam Physical Exam: General- oriented x 3, not in distress, speaks in sentences with no effort or accessory muscle use Head- atraumatic Eyes- PERRL, EOMI, anicteric ENT- oropharynx clear Neck- supple, no JVD, no adenopathy, no thyromegaly; carotids +2/2, no bruits appreciated Lungs- clear to auscultation bilaterally, no rales/wheezes Heart- normal rate, regular rhythm; no murmur, no gallop, no rub appreciated Abdomen- hyperactive bowel sounds, nondistended, soft, nontender, no masses or hepatosplenomegaly Extremities- no pretibial edema, no calf tenderness; peripheral pulses intact Neuro- alert, oriented x 3; CN 2-12 grossly intact; motor 5/5 bilaterally;sensation 100% on all extremities; no other gross focal neurologic deficits Skin- warm & dry Results & Data Results & Data ([facility]) Vital Signs (Past 12 Hours) Vital Signs Temp Pulse Pulse Resp BP BP BP 09/23/21 17:03 36.2 C L 99 H 16 114/77 09/23/21 12:50 84 16 93/66 L 09/23/21 10:30 36.4 C L 80 20 90/56 L 09/23/21 10:00 73 16 97/60 L 09/23/21 09:30 68 13 95/58 L 09/23/21 09:00 75 14 121/68 09/23/21 08:56 36.6 C 78 20 145/82 H 09/23/21 08:30 79 17 09/23/21 08:00 66 17 09/23/21 07:30 65 14 116/69 09/23/21 07:00 73 13 110/73 09/23/21 06:30 72 15 112/71 Pulse Ox 09/23/21 17:03 99 09/23/21 12:50 100 09/23/21 10:30 97 09/23/21 10:00 94 09/23/21 09:30 94 09/23/21 09:00 95 09/23/21 08:56 97 09/23/21 08:30 09/23/21 08:00 09/23/21 07:30 93 09/23/21 07:00 94 09/23/21 06:30 97 all noted and reviewed including below
[2021-09-23] MEDS ORDERED: PIPERACILLIN/TAZOBACTAM 3.375 GM in DEXTROSE 5% 100 ML IV ONE (18:45)
[2021-09-23] MEDS: D5NSS + 20MEQ KCL 20 MEQ/1,000 ML BAG IV SCH (20:10)
[2021-09-23] MEDS ORDERED: diphenhydrAMINE Capsule 25 MG CAP PO ONE (22:35)
[2021-09-23] MEDS: PIPERACILLIN/TAZOBACTAM 3.375 GM in DEXTROSE 5% 100 ML IV SCH (23:47)
[2021-09-24] MEDS: HYDROmorphone INJ 0.5 MG/0.5 ML SYR IV PRN ×5 (02:22→21:26)
[2021-09-24] MEDS: D5NSS + 20MEQ KCL 20 MEQ/1,000 ML BAG IV SCH ×2 (04:00→16:41)
[2021-09-24] MEDS: LEVOTHYROXINE SODIUM 112 MCG TABLET PO SCH (05:23)
[2021-09-24] MEDS: PIPERACILLIN/TAZOBACTAM 3.375 GM in DEXTROSE 5% 100 ML IV SCH ×2 (08:05→17:00)
[2021-09-24] MEDS: PANTOprazole 40 MG in SYRINGE 0 ML IV SCH ×2 (08:29→21:22)
[2021-09-24] MEDS: busPIRone 15 MG TAB PO SCH ×2 (08:29→21:21)
[2021-09-24] MEDS: buPROPion SR 100 MG TABCR PO SCH ×2 (08:29→21:21)
[2021-09-24] MEDS: ENOXAPARIN INJ 40 MG/0.4 ML SYR SQ SCH (08:30)
[2021-09-24] MEDS: AMPHETAMINE ASP/SULF/DEXTRAMPH 10 MG TAB PO SCH ×2 (08:34→21:20)
--- NOTE | 2021-09-24 08:35 | XRay Report ---
XR KUB/Abdomen 1 view CLINICAL HISTORY: ff up bowel obstruction TECHNIQUE: 1 view of the abdomen was obtained. Comparison: Comparison is made to abdomen radiograph 09/20/2021 FINDINGS: Lung bases are unremarkable. The osseous structures are grossly unremarkable. The bowel gas pattern i s nonobstructive. A moderate amount of gas is seen in the colon. IMPRESSION: Nonobstructive bowel gas pattern. ACT 112: Negative or not required by law. Electronically signed by: Kolton Marquez M.D. 09/24/2021 8:33 AM
--- NOTE | 2021-09-24 10:50 | Surgery Progress Note ---
Date of Service September 24, 2021 Assessment & Plan (1) Intractable abdominal pain: (2) Gastroenteritis: (3) Partial small bowel obstruction: (4) Abdominal wall hernia: Plan: 46 year-old female with history of colonic resection in 2007 and recurrent SBO with recent admission from 09/20/21-09/21/21 for likely gastroenteritis/ileus and required NGT for decompression. Improved but pain reoccurred at home and presented back to emergency department. CT scan 09/23/2021 is showing small bowel and large bowel dilatation which is increased compared to prior CT scan on 09/19/21. Again favoring ileus/gastroenteritis. 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 09/24/2021: afebrile, vss abdominal pain mostly resolved + return of bowel function liquid bowel movements and gas KUB today showing nonobstructive pattern, air in colon Plan: Likely ileus/gastroenteritis resolving, small bowel is not distended on KUB today Advance to clear liquids continue to ambulate No surgical intervention required at this time, our services signing off. Patient is to follow-up with Dr. luna as outpatient for hernia follow-up Dr. Menjivar was present during my examination and agrees with above. Admission and Anticipated Discharge Date Admission Date: September 23, 2021 Subjective feeling much better today abdominal pain has mostly resolved and is feeling less bloated no nausea, no vomiting multiple liquid bowel movements and flatus throughout the night Physical Exam Constitutional: WD/WN, vitals as above no acute distress and not ill appearing Neck: normal visual inspection and trachea midline Respiratory: normal respiratory effort; no respiratory distress Gastrointestinal (Abdomen): Inspection/Auscultation: abdomen normal to inspection; abdomen not distended Percussion/Palpation: abdomen soft; abdomen nontender, no guarding and abdomen not rigid Skin: no rashes, warm and dry Psychiatric: A+Ox3, euthymic affect Results & Data ([facility]) Vital Signs (Past 12 Hours) Vital Signs Temp Pulse Resp BP Pulse Ox 09/24/21 07:20 36.7 C 65 18 124/85 98 09/23/21 22:53 36.6 C 64 16 106/67 98 Diagnostic Findings XR KUB/Abdomen 1 view CLINICAL HISTORY: ff up bowel obstruction TECHNIQUE: 1 view of the abdomen was obtained. Comparison: Comparison is made to abdomen radiograph 09/20/2021 FINDINGS: Lung bases are unremarkable. The osseous structures are grossly unremarkable. The bowel gas pattern is nonobstructive. A moderate amount of gas is seen in the colon. IMPRESSION: Nonobstructive bowel gas pattern.
--- NOTE | 2021-09-24 11:56 | Discharge Summary ---
Date of Service September 24, 2021 Discharge Data Allergies Allergy/AdvReac Type Severity Reaction Status Date / Time influenza virus vaccine, Allergy Intermediate UNKNOWN - Verified 09/22/21 23:08 specific episodes of sickness/ passing out Iodinated Contrast Media Allergy Intermediate Hives Verified 09/22/21 23:08 Sulfa (Sulfonamide Allergy Intermediate RASH Verified 09/22/21 23:08 Antibiotics) lamotrigine Allergy Mild RASH Verified 09/22/21 23:08 metoclopramide Allergy Mild gittery Verified 09/22/21 23:08 oxycodone AdvReac Unknown Unknown - Verified 09/22/21 23:08 PERCOCET Consultations 09/23/21 01:13 ED Decision to Admit Stat 09/23/21 04:38 Consult General Surgery Routine Ordered Studies 09/22/21 22:31 CT abd pelvis IV con only Urgent Discharge Plan Discharge Items Reason For Visit: ABDOMINAL PAIN Condition on Discharge: Good Follow-up/Referrals: Rosmery Solomon, [Primary Care Provider] - Medications and DC Order Prescriptions: No Action spironolactone 100 mg tablet 100 mg PO BID RF: 0 levothyroxine 112 mcg tablet 112 mcg PO DAILYBB RF: 0 linaclotide 290 mcg capsule 290 mcg PO QAM RF: 0 multivitamin Tablet 1 tab PO QAM RF: 0 cyanocobalamin (vitamin B-12) 1,000 mcg/mL solution 1,000 mcg IM .Q2W RF: 0 hydroxyzine HCl 25 mg tablet 25 mg PO QID PRN (Reason: Anxiety) RF: 0 epinephrine 0.3 mg/0.3 mL auto-injector 0.3 mg IM UD RF: 0 buspirone 15 mg tablet 15 mg PO BID RF: 0 bupropion HCl 200 mg tablet sustained-release 12 hr 200 mg PO BID RF: 0 dextroamphetamine-amphetamine 30 mg tablet 30 mg PO BID RF: 0 Admission Data Admit Date/Time: 09/23/21 03:17 Attending Provider: Memo Botello Admit Provider: Nathanael Jimenez Primary Care Provider: Rosmery Solomon Other Providers: Nathanael Jimenez ; Clive Martinez ; Jorje Emanuel ; Gay Mccollum ; Padmini Saleem ; Familia Izquierdo ; Giuliano Delacruz ; Giselle Sotelo ; Janeth Vernon ; Edison Toney Jr ; Peter Menjivar ; Sherwin Ferrara ; Selina Matthews
--- NOTE | 2021-09-24 17:18 | Hospitalist Progress Note ---
Date of Service September 24, 2021 Assessment & Plan (1) Partial small bowel obstruction: Plan: ASSESSMENT AND PLAN: This 46-year-old female presents with abdominal pain and found to have recurrent small bowel obstruction. 1. Recurrent partial small bowel obstruction -- CT abdomen/pelvis noted continues to improve advance diet slowly, full liquids today Gen Surg on board diarrhea improving stool PCR, C diff test: pending Zosyn for possible component of gastroenteritis continue IV fluids 2. History of anxiety, panic disorder, attention deficit hyperactivity disorder, mood disorder: --continue home medication 3. History of irritable bowel syndrome, chronic constipation. -- hold linzess for now. 4. Hypothyroidism: -- Continue Synthroid if able to take p.o. 5. Gastroesophageal reflux disease: -- IV Protonix b.i.d. 6. History of sleep apnea, nontolerant with CPAP. 7. Hypercalcemia: -- normal now 8. Hypokalemia -- 9. Deep venous thrombosis prophylaxis: -- Lovenox. DISPOSITION: d/c home when medically stable Admission and Anticipated Discharge Date Admission Date: September 23, 2021 Subjective ff up for partial bowel obstruction etc seen with MIKEY Hackett at bedside throughout whole encounter resting , sitting up in bed, comfortable, in good spirits states she feels improved today no abdominal pain, nausea (+) multiple BMs today- non bloody no chest pain, dyspnea, palpitations, dizziness no other symptoms Review of Systems Review of Systems: all noted and negative except for above Physical Exam Physical Exam: General- oriented x 3, not in distress, speaks in sentences with no effort or accessory muscle use Eyes- anicteric Neck- no JVD Lungs- clear breath sounds bilaterally Heart- normal rate, regular rhythm; no murmurs Abdomen- normal bowel sounds, nondistended, soft, nontender Extremities- no pretibial edema, no calf tenderness Neuro- alert, oriented x 3; no gross focal neurologic deficits Skin- warm & dry Results & Data Results & Data ([facility]) Vital Signs (Past 12 Hours) Vital Signs Temp Pulse Resp BP Pulse Ox 09/24/21 15:16 36.9 C 65 20 123/86 94 09/24/21 07:20 36.7 C 65 18 124/85 98 all noted and reviewed including below
[2021-09-24] MEDS ORDERED: diphenhydrAMINE Capsule 25 MG CAP PO PRN (17:57)
[2021-09-24 18:30] LABS: Calcium 8.1 mg/dl (8.5-10.1); Creatinine Clr Calc Pharmacy 56.9 ml/min; Est GFR (African American) 77.7 ml/min; Magnesium 1.9 mg/dl (1.7-2.4); Potassium 4.2 mmol/L (3.5-5.1)
[2021-09-24 21:14] LABS: Adenovirus F 40/41 PCR Not Detected (NotDetected); Astrovirus PCR Not Detected (NotDetected); Campylobacter PCR Not Detected (NotDetected); Clostridium diff Toxin A/B PCR Not Detected (NotDetected); Cryptosporidium PCR Not Detected (NotDetected); Cyclospora cayetanensis PCR Not Detected (NotDetected); Entamoeba histolytica PCR Not Detected (NotDetected); Enteroaggregative E.coli(EAEC) Not Detected (NotDetected); Enteropathogenic E.coli (EPEC) Not Detected (NotDetected); Enterotoxigenic E.coli (ETEC) Not Detected (NotDetected); Giardia lamblia PCR Not Detected (NotDetected); Norovirus GI/GII PCR Not Detected (NotDetected); Plesiomonas shigelloides PCR Not Detected (NotDetected); Rotavirus A PCR Not Detected (NotDetected); Salmonella PCR Not Detected (NotDetected); Sapovirus PCR Not Detected (NotDetected); Shiga-like Toxin E.coli (STEC) Not Detected (NotDetected); Shigella/Enteroinvasive E.coli Not Detected (NotDetected); Vibrio cholerae PCR Not Detected (NotDetected); Vibrio species PCR Not Detected (NotDetected); Yersinia enterocolitica PCR Not Detected (NotDetected)
[2021-09-24] MEDS: ONDANSETRON INJ 2 MG/ML 2 ML VIAL IV PRN (21:26)
[2021-09-25] MEDS: PIPERACILLIN/TAZOBACTAM 3.375 GM in DEXTROSE 5% 100 ML IV SCH ×2 (00:35→08:57)
[2021-09-25] MEDS: HYDROmorphone INJ 0.5 MG/0.5 ML SYR IV PRN ×5 (00:37→14:00)
[2021-09-25] MEDS: ONDANSETRON INJ 2 MG/ML 2 ML VIAL IV PRN ×3 (04:33→16:38)
[2021-09-25] MEDS: LEVOTHYROXINE SODIUM 112 MCG TABLET PO SCH (06:10)
[2021-09-25] MEDS: AMPHETAMINE ASP/SULF/DEXTRAMPH 10 MG TAB PO SCH (08:10)
[2021-09-25] MEDS: D5NSS + 20MEQ KCL 20 MEQ/1,000 ML BAG IV SCH (08:57)
[2021-09-25] MEDS: buPROPion SR 100 MG TABCR PO SCH (08:58)
[2021-09-25] MEDS: busPIRone 15 MG TAB PO SCH (08:58)
[2021-09-25] MEDS: PANTOprazole 40 MG in SYRINGE 0 ML IV SCH (08:58)
[2021-09-25] MEDS: ENOXAPARIN INJ 40 MG/0.4 ML SYR SQ SCH (08:58)
--- NOTE | 2021-09-25 11:30 | Hospitalist Progress Note ---
Date of Service September 25, 2021 Assessment & Plan (1) Partial small bowel obstruction: Plan: ASSESSMENT AND PLAN: This 46-year-old female presents with abdominal pain and found to have recurrent small bowel obstruction. 1. Recurrent partial small bowel obstruction -- CT abdomen/pelvis: 1. Compared to the previous study, there are now mildly dilated fluid-filled loops of small bowel throughout the abdomen and pelvis to the level of the ileocolonic anastomosis. However, the colon distal to this site is distended and fluid-filled as well. 2. 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 No gross small bowel obstruction is seen. The overall findings are again most characteristic of an ileus versus gastroenteritis. --Gentle surgery consulted Patient placed on bowel rest Supportive care Clinically improved Diet advanced carefully stool PCR, C diff test: Negative Zosyn discontinued --Anticipate discharge to home today if patient tolerating lunch well Follow-up with PCP in 1 week 2. History of anxiety, panic disorder, attention deficit hyperactivity disorder, mood disorder: --continue home medication 3. History of irritable bowel syndrome, chronic constipation. -- resume in 1-2 days 4. Hypothyroidism: -- Continue Synthroid if able to take p.o. 5. Gastroesophageal reflux disease: -- Pantoprazole daily 6. History of sleep apnea -- nontolerant with CPAP. 7. Hypercalcemia: -- normal now 8. Hypokalemia -- resolved 9. Deep venous thrombosis prophylaxis: -- Lovenox given DISPOSITION: d/c home this afternoon ff up with PCP in 1 week Admission and Anticipated Discharge Date Admission Date: September 23, 2021 Subjective Follow-up for bowel obstruction, etc. Seen resting in bed, comfortable, not in distress States she continues to feel better overall Had mild epigastric pain with breakfast, but otherwise tolerated it well +1 soft bowel movement this morning Very mild nausea Would like to go home today if she tolerates lunch well No other symptoms Review of Systems Review of Systems: all noted and negative except for above Physical Exam Physical Exam: General- oriented x 3, not in distress, speaks in sentences with no effort or accessory muscle use Eyes- anicteric Neck- no JVD Lungs- clear breath sounds bilaterally, no rales/wheezes Heart- normal rate, regular rhythm; no murmurs Abdomen- normal bowel sounds, nondistended, soft, nontender Extremities- no pretibial edema, no calf tenderness Neuro- alert, oriented x 3; no gross focal neurologic deficits Skin- warm & dry Results & Data Results & Data ([facility]) Vital Signs (Past 12 Hours) Vital Signs Temp Pulse Resp BP Pulse Ox 09/25/21 08:33 36.9 C 77 16 103/66 95 all noted and reviewed including below
--- NOTE | 2021-09-25 19:22 | Discharge Summary ---
Date of Service September 25, 2021 Admission HPI Per Admitting Provider Chief Complaint: Abdominal pain, emesis Primary Care Provider: Rosmery Solomon DO History obtained from patient and records. Medical history significant for history of colonic inertia status post bowel resection, recurrent bowel obstruction, IBSconstipation predominant, GERD, hypothyroidism, RAYMUNDO (CPAP intolerance), ADD, anxiety disorder, hx PCOS Last confinement August 2018 for small bowel obstruction resolved with conservative management. Patient saw [facility] general surgeon May 2021 for evaluation of abdominal wall hernia in the epigastrium. Outpatient CT abdomen pelvis showed 4 mm ventral hernia in the midline approximately 6 cm above the umbilicus. Patient was to schedule follow-up appointment with surgeon to discuss issue. Yesterday afternoon patient noted sudden onset achy epigastric discomfort followed by multiple episodes of emesis. No fever, no chills. Left-sided chest pain which patient attributes to lifting in the gym. Usual bowel movements yesterday. Episode similar to bowel obstruction bouts in the past as per patient. NGT inserted at the ER for possible partial bowel obstruction. Admission Exam (Per Admitting) Constitutional GENERAL: Slightly uncomfortable, no respiratory distress SKIN: Normal color, warm HEENT: [place] palpebral conjunctivae, no ptosis, dry buccal mucosa, NGT in place NECK : Supple, no tenderness CHEST : CTA, no tenderness HEART : Bradycardic, no obvious murmurs ABDOMEN: No distention, central abdominal tenderness EXTREMITIES : No LE swelling/tenderness, no other conspicuous deformities noted NEUROLOGIC : Coherent, no facial asymmetry, no other gross focality Discharge Data Consultations 09/23/21 01:13 ED Decision to Admit Stat 09/23/21 04:38 Consult General Surgery Routine Procedures Performed CT abd pelvis IV con only CLINICAL HISTORY: severe upper abd pain, hx sbo and hernias COMPARISON STUDY: 09/19/2021 CT DOSE: 272.33 mGy.cm TECHNIQUE: Standard CT of the Abdomen and Pelvis was performed with IV contrast. A dose lowering technique was utilized adhering to the principles of ALARA. Contrast Volume: Optiray 320, 94 ml. The patient did not receive oral contrast. FINDINGS: Lung base: The lung bases are clear. Abdominal cavity: There is no evidence for abdominal mass, adenopathy or ascites. Liver: There is homogeneous attenuation of the liver parenchyma. There is no evidence for enhancing mass lesion. Spleen: There is homogeneous attenuation of the splenic parenchyma. There is no enhancing mass lesion. Pancreas: There is homogeneous attenuation of the pancreatic parenchyma. There is no evidence for mass lesion or peripancreatic fluid collection. Gall Bladder: The gallbladder is well distended with no evidence for intralu clarita calculi, wall thickening or pericholecystic edema. Adrenal glands: The adrenal glands are normal in size and attenuation. There is no evidence for enhancing mass lesion. Kidneys: There is homogeneous attenuation of the renal parenchyma bilaterally. There is no evidence for renal calculus or hydronephrosis. There is no evidence for enhancing mass. Bowel: Compared to the previous examination, the patient is again status post resection of the majority of the colon with ileocolonic anastomosis. Compared to the recent study, there is increased dilatation of fluid-filled loops of small bowel throughout the abdomen and pelvis. The stomach is again distended with fluid. However, the colon is also distended and fluid-filled with no evidence for gross obstruction. There is narrowing at the site of the anastomosis with the findings characteristic of chronic small bowel pseudoobstruction. The overall findings are still most characteristic of ileus versus gastroenteritis.. There is no evidence for mass lesion. There are no inflammatory changes present. There is no evidence for free air. Bladder: The bladder is within normal limits with no evidence for focal mass, calculus or diverticulum. : There is no evidence for pelvic mass or adenopathy. There is no evidence for pelvic ascites. There is again enlargement of the uterus. Vasculature: There is no evidence for aneurysmal dilatation of the abdominal aorta. Osseous structures: There is no acute osseous pathology. Degenerative changes are again seen within the spine. IMPRESSION: 1. Compared to the previous study, there are now mildly dilated fluid-filled loops of small bowel throughout the abdomen and pelvis to the level of the ileocolonic anastomosis. However, the colon distal to this site is distended and fluid-filled as well. 2. 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 No gross small bowel obstruction is seen. The overall findings are again most characteristic of an ileus versus gastroenteritis. ACT 112: Negative or not required by law. Electronically signed by: Armand Fleming M.D. 09/23/2021 8:11 AM XR KUB/Abdomen 1 view CLINICAL HISTORY: ff up bowel obstruction TECHNIQUE: 1 view of the abdomen was obtained. Comparison: Comparison is made to abdomen radiograph 09/20/2021 FINDINGS: Lung bases are unremarkable. The osseous structures are grossly unremarkable. The bowel gas pattern is nonobstructive. A moderate amount of gas is seen in the colon. IMPRESSION: Nonobstructive bowel gas pattern. ACT 112: Negative or not required by law. Electronically signed by: Kolton Marquez M.D. 09/24/2021 8:33 AM Hospital Course (1) Partial small bowel obstruction: ASSESSMENT AND PLAN: This 46-year-old female presents with abdominal pain and found to have recurrent small bowel obstruction. 1. Recurrent partial small bowel obstruction -- CT abdomen/pelvis: 1. Compared to the previous study, there are now mildly dilated fluid-filled loops of small bowel throughout the abdomen and pelvis to the level of the ileocolonic anastomosis. However, the colon distal to this site is distended and fluid-filled as well. 2. 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 No gross small bowel obstruction is seen. The overall findings are again most characteristic of an ileus versus gastroenteritis. --General surgery consulted Patient placed on bowel rest Supportive care Clinically improved Diet advanced carefully stool PCR, C diff test: Negative Zosyn discontinued --discharge to home today Follow-up with PCP in 1 week 2. History of anxiety, panic disorder, attention deficit hyperactivity disorder, mood disorder: --continue home medication 3. History of irritable bowel syndrome, chronic constipation. -- resume Linzess 4. Hypothyroidism: -- Continue Synthroid if able to take p.o. 5. Gastroesophageal reflux disease: -- Pantoprazole daily 6. History of sleep apnea -- intolerant with CPAP. 7. Hypercalcemia: -- normal now 8. Hypokalemia -- resolved 9. Deep venous thrombosis prophylaxis: -- Lovenox given DISPOSITION: d/c home this afternoon ff up with PCP in 1 week
== END 2021-09-25 17:31 | disposition home or self-care (01) | DRG 394 ==
LOC: ED 22:17 → EDINP 09-23 03:17 → 3N 09-23 16:54